=== PATIENT | female | born 1960 | race Caucasian/White ===

== ENCOUNTER 2024-03-10 14:40 | Inpatient (IN) | payer MEDICARE, OTHER, MEDICAID, SELFPAY ==
--- NOTE | ~2024-03-10 | XR_ITS ---
EXAMINATION: XR ABDOMEN KUB CLINICAL INDICATION: constipation COMPARISON: None available. TECHNIQUE: AP view of the abdomen. FINDINGS: There is moderate gas and air seen throughout the colon without distention. There is no organomegaly. No obvious radiopaque calculi seen. Evidence of kyphoplasty L2 and L3 vertebra. There is moderate dextroscoliosis lower dorsal spine. There is a right hip prosthesis in place. XR/XR KUB IMPRESSION: Moderate constipation. Electronically signed by: Jass Caldwell MD 03/18/2024 04:38 PM EST
--- NOTE | ~2024-03-10 | XR_ITS ---
EXAMINATION: XR ABDOMEN KUB CLINICAL INDICATION: constipation COMPARISON: KUB 03/18/2024 TECHNIQUE: AP view of the abdomen. FINDINGS: There is moderate scattered stool throughout the colon suggestive of constipation. There is no organomegaly. No obvious radiopaque calculi seen. There is moderate S-shaped scoliosis of dorsal lumbar spine with cement augmentation of L2 and L3 vertebra for an old fracture. There is partially visualized total right hip prosthesis in satisfactory alignment. XR/XR KUB IMPRESSION: Mild constipation. Electronically signed by: Jass Caldwell MD 03/24/2024 01:25 PM YANNI
--- NOTE | ~2024-03-10 | XR_ITS ---
CLINICAL HISTORY: pain, hx of injury. Exams to be done in the morning 3 view right ankle Comparison: None Findings: No acute fracture. Old healed distal fibular and calcaneal fractures. Medial plate and screw fixation of the distal tibia without evidence of periprosthetic fracture or loosening. One of the more distal screws results in a small focus of chronic erosion of the medial aspect of the distal fibula. Mild talocrural osteoarthritis. No tibiotalar joint effusion. IMPRESSION: No acute findings. This document has been electronically signed by: Ian Florian DO on 03/13/2024 09:57:51
--- NOTE | ~2024-03-10 | XR_ITS ---
CLINICAL HISTORY: pain, hx of injury 2 view right hip Comparison: None Findings: Lumbosacral degenerative changes. Mild right sacroiliac and minimal pubic symphysis degenerative change. Right cemented total hip arthroplasty in near anatomic alignment without evidence of hardware complication. IMPRESSION: No acute findings. This document has been electronically signed by: Ian Florian DO on 03/13/2024 09:53:47
--- NOTE | ~2024-03-10 | CT_ITS ---
CLINICAL HISTORY: losing balance CT HEAD WITHOUT CONTRAST Comparison: None Findings: No acute intracranial hemorrhage, extra-axial fluid collection, hydrocephalus or midline shift. Age appropriate generalized parenchymal atrophy. There are periventricular and subcortical white matter hypodensities which are nonspecific but most likely related to microangiopathic gliosis. No sinus or mastoid fluid. Visualized orbits: No acute abnormalities. No skull fracture. IMPRESSION: No acute intracranial process. This document has been electronically signed by: Jo Guy DO on 03/17/2024 17:28:21
[2024-03-10 14:45] VITALS: BP 145/92; PULSE 77; RESP 18; TEMP 37; O2SAT 98; BMI 17.8
--- NOTE | 2024-03-10 14:49 | ED_ITS ---
HPI - General Adult General Chief complaint: Psychiatric Symptoms Stated complaint: Crisis Time Seen by Provider: 03/10/24 15:06 Source: patient Mode of arrival: ambulatory Limitations: no limitations History of Present Illness ED Provider: DEVON HART narrative: 63 yo female with PMH of asthma, anxiety, depression here with c/o severe depression and plans to kill herself. Her parents have funs and she wanted to pry open the safe and use them. She notes lifelong SI with attempts. She has no medical complaints. No harm. She was sent over by psychiatry on S12 [facility] they have been discussing TMS therapy. The patient states she is ready and wants to get help. MD complaint: depression/SI Onset (ago): year(s) Severity: severe Relieving factors: none Exacerbating factors: other Associated symptoms: denies other symptoms Treatments prior to arrival: none Related Data Home Medications ?Medication ?Instructions ?Recorded ?Confirmed calcium carbonate 500 mg PO DAILY 03/10/24 03/10/24 calcium carbonate (Tums) 200 mg PO TID PRN Indigestion 03/10/24 03/10/24 cholecalciferol (vitamin D3) 25 25 mcg PO DAILY 03/10/24 03/10/24 mcg (1,000 unit) tablet (Vitamin D3) fluoxetine 20 mg capsule 40 mg PO DAILY 03/10/24 03/10/24 fluvoxamine 100 mg tablet 50 mg PO BID depressive disorder 03/10/24 03/11/24 lamotrigine 100 mg tablet 100 mg PO DAILY depressive disorder 03/10/24 03/10/24 levothyroxine 88 mcg tablet 88 mcg PO DAILY 03/10/24 03/10/24 (Synthroid) lorazepam 0.5 mg tablet 0.5 mg PO DAILY PRN anxiety 03/10/24 03/10/24 meclizine 12.5 mg tablet 12.5 mg PO TID PRN Dizziness 03/10/24 03/10/24 meloxicam 15 mg tablet 15 mg PO DAILY 03/10/24 03/10/24 methylphenidate HCl 20 mg tablet 20 mg PO TID@0700,1100,1500 03/10/24 03/11/24 Allergies Allergy/AdvReac Type Severity Reaction Status Date / Time codeine Allergy Swelling Verified 03/10/24 14:55 Review of Systems 2 Review of Systems: Constitutional : No Fever, No Chills ENT/Mouth : No Ear Pain, No Nasal Congestion, No sore throat Eyes: No Eye Pain, No Swelling, No Redness Cardiovascular : No Chest Pain, No SOB Respiratory : No Cough, No Sputum, No Dyspnea Gastrointestinal : No Nausea, No Vomiting, No Diarrhea, No Hematochezia, No Melena Genitourinary : No Dysuria, No Urinary Frequency, No Hematuria Musculoskeletal : No Myalgias Skin : No Skin Lesions, No rash Neuro : No Weakness, No Numbness, No Paresthesias, No Dizziness, No Headache Psych : positive Anxiety, positive Depression, positive SI no HI All other systems reviewed and are negative [facility] Past Medical History Medical History Depression Anxiety Social History Social History (Updated 03/10/24 @ 16:01 by Jessi Pollard DO) Patient Tobacco Use Status: Tobacco use Unknown Advance Directives: No Advance Directives Information Provided: Yes Physical Exam ED Vital Signs: Vital Signs - 24 hr 03/11/24 06:18 03/11/24 15:37 Temperature 97.6 F 98.2 F Pulse Rate 75 82 Respiratory Rate 16 16 Blood Pressure 121/66 108/65 Pulse Oximetry 98 99 Oxygen Delivery Method Room Air Room Air BMI result Body Mass Index 17.8 Appearance: Alert. Oriented X3. No acute distress. Eyes: Pupils equal, round and reactive to light. ENT: Pharynx normal. Neck: Normal inspection. Neck supple. CVS: Normal heart rate and rhythm. Pulses normal. Respiratory: No respiratory distress. Breath sounds normal. Abdomen: Soft and nontender. Skin: Skin warm and dry. Normal skin color. Normal skin turgor. Extremities: No lower extremity edema. No calf ttp Neuro: Oriented X 3. No motor deficit. No sensory deficit. CN2-12 intact Course Course Course Narrative: RME, this is a rapid medical exam performed by Christian Fernandez please refer to primary provider for complete H&P- 63-year-old female is brought down from for suicidal ideation. She was placed on a section on presentation to the ED. She will be brought to the pot for medical clearance and will be a bed search for inpatient psychiatric care. She was apparently trying to get access to her father's firearms Reevaluation(s) Reevaluation #1: 03/11 1 PM stable clinically bed search continue inpatient level of care Medical Decision Making Medical Decision Making MDM Narrative: 63 yo female with PMH of anxiety and depression here with c/o SI and sig plans to kill herself - at this time will obtain labs and CARE team consult - she is S12 inpatient bed search she is aware and agreeble Care team: [facility] bed search, already on a section 12 Differential Diagnosis Differential Diagnoses: The differential diagnosis associated with the presentation includes anxiety and depression Admission/Observation Consideration of admission/observation: Escalation of care including admission/observation considered physician observation started at 410pm pending CARE team and placement Consult Healthcare Provider Management of the patient was discussed with: Behavioral Health Provider Lab Data MDM Lab Attestation statement: I reviewed the patient's lab results. 03/10/24 15:48 03/10/24 15:48 Labs: Lab Results 03/10/24 Range/Units 15:48 WBC 8.8 (4.8-10.8) X10*3/uL RBC 4.01 L (4.20-5.50) X10*6/uL Hgb 13.6 (12.0-16.0) g/dl Hct 39.5 (37.0-47.0) % MCV 98.5 H (80.0-98.0) fL MCH 33.9 H (27.0-33.0) pg MCHC 34.4 (31.0-35.0) g/dl RDW 13.2 (11.0-16.0) % Plt Count 260 (160-400) X10*3/uL MPV 9.6 (9.4-12.3) fL Immature Gran % (Auto) 0.2 (0.0-0.4) % Neut % (Auto) 57.8 (45-73) % Lymph % (Auto) 27.4 (20-40) % [place] % (Auto) 8.6 (2-11) % Eos % (Auto) 4.6 H (0-4) % Baso % (Auto) 1.4 (0-2) % Lymph # (Auto) 2.4 (1.2-4.9) X10*3/uL [place] # (Auto) 0.8 (0.1-1.2) X10*3/uL Eos # (Auto) 0.4 (0.0-0.4) X10*3/uL Baso # (Auto) 0.1 (0.0-0.2) X10*3/uL Abs Immat Gran (auto) 0.02 (0.00-0.03) X10*3/uL Absolute Neuts (auto) 5.1 (2.0-8.3) x10*3/uL Absolute Nucleated RBC 0.000 (0.0-0.012) X10*3/uL Nucleated RBC % (auto) 0.0 (0.0-0.2) /100WBC Sodium 140 (135-145) mmol/L Potassium 3.6 (3.3-5.1) mmol/L Chloride 108 (96-108) mmol/L Carbon Dioxide 24 (22-29) mmol/L Anion Gap 12 (12-20) BUN 16 (9-16) mg/dL Creatinine 1.08 (0.5-1.4) mg/dL Estim Creat Clear Calc 41.4 Estimated GFR 51 Random Glucose 114 (60-115) mg/dL Calcium 9.3 (8.4-10.2) mg/dL Total Bilirubin 0.5 (0.0-1.0) mg/dL AST 40 H (5-31) U/L ALT 19 (0-31) U/L Alkaline Phosphatase 87 (39-117) U/L Total Protein 7.2 (6.5-8.0) g/dL Albumin 4.1 (3.5-5.0) g/dL Urine Color Yellow Urine Appearance Clear Urine pH 7.0 (5.0-9.0) Ur Specific [place] 1.025 (1.005-1.025) Urine Protein Negative (Neg-Trace) mg/dL Urine Glucose (UA) Negative (Negative) mg/dL Urine Ketones Trace (Negative) mg/dL Urine Blood Negative (Negative) Urine Nitrite Negative (Negative) Ur Leukocyte Esterase Trace H (Negative) Urine RBC 3-5 H (0-2) /HPF Urine WBC 0-5 (0-5) /HPF Ur Squamous Epith Cells 0-2 (0-2) /HPF Urine Bacteria None Seen (None Seen) Hyaline Casts 0-2 (0-2) /LPF Salicylates < 5.0 L (15-30) mg/dL Urine Opiates Screen POSITIVE H (Not Detect) Ur Buprenorphine Scrn Positive H (Not Detect) ng/mL Ur Oxycodone Screen Not Detected (Not Detect) ng/mL Urine Methadone Screen Not Detected (Not Detect) ng/mL Urine Fentanyl Screen Not Detected (Not Detect) Acetaminophen < 3 (<30) mcg/mL Ur Barbiturates Screen Not Detected (Not Detect) Ur Phencyclidine Scrn Not Detected (Not Detect) Ur Amphetamines Screen Not Detected (Not Detect) U Benzodiazepines Scrn Not Detected (Not Detect) Urine Cocaine Screen Not Detected (Not Detect) U Marijuana (THC) Screen POSITIVE H (Not Detect) Ethyl Alcohol < 10 mg/dL External Record Review External record reviewed: Outpatient record Discharge Plan Discharge Clinical Impression: Suicidal ideation Patient Disposition: Still a Patient Interventions: Mercer-Suicide Risk Severity Scale Last Done: 03/10/24 20:50
[2024-03-10 15:53] LABS: MANUAL DIFF FLAG NO
[2024-03-10 15:55] LABS: Basophils Absolute Auto 0.1 X10*3/uL (0.0-0.2); Basophils Percent Auto 1.4 % (0-2); Eosinophils Absolute Auto 0.4 X10*3/uL (0.0-0.4); Eosinophils Percent Auto 4.6 % (0-4); Hematocrit 39.5 % (37.0-47.0); Hemoglobin 13.6 g/dl (12.0-16.0); Imm Gran Abs Auto 0.02 X10*3/uL (0.00-0.03); Imm Gran Pct Auto 0.2 % (0.0-0.4); Lymphocytes Absolute Auto 2.4 X10*3/uL (1.2-4.9); Lymphocytes Percent Auto 27.4 % (20-40); Mean Corpuscular HGB Conc 34.4 g/dl (31.0-35.0); Mean Corpuscular Hemoglobin 33.9 pg (27.0-33.0); Mean Corpuscular Volume 98.5 fL (80.0-98.0); Mean Platelet Volume 9.6 fL (9.4-12.3); Monocytes Absolute Auto 0.8 X10*3/uL (0.1-1.2); Monocytes Percent Auto 8.6 % (2-11); Neutrophils Absolute Auto 5.1 x10*3/uL (2.0-8.3); Neutrophils Percent Auto 57.8 % (45-73); Platelet Count 260 X10*3/uL (160-400); Red Blood Count 4.01 X10*6/uL (4.20-5.50); Red Cell Distribution Width 13.2 % (11.0-16.0); White Blood Count 8.8 X10*3/uL (4.8-10.8)
[2024-03-10 16:00] LABS: Appearance Urine Clear; Color Urine Yellow; Glucose Urine UA Negative (Negative); Leukocyte Esterase Urine Trace (Negative); Nitrite Urine Negative (Negative); Specific Gravity - Urine 1.025 (1.005-1.025); UMIC TRIGGER UA YES; Urine Blood Negative (Negative); Urine Ketones Trace mg/dL (Negative); Urine Protein Negative (Neg-Trace)
[2024-03-10 16:04] LABS: Amphetamine Screen Urine Not Detected (Not Detect); Barbiturates, Urine Not Detected (Not Detect); Benzodiazepines Screen Urine Not Detected (Not Detect); Buprenorphine Scr Positive (Not Detect); Cannabinoid Screen Urine POSITIVE (Not Detect); Cocaine Screen Urine Not Detected (Not Detect); Fentanyl, urine Not Detected (Not Detect); Methadone Screen, Urine Not Detected (Not Detect); Opiate Screen Urine POSITIVE (Not Detect); Oxycodone Screen Urine Not Detected (Not Detect); Phencyclidine Screen Urine Not Detected (Not Detect)
[2024-03-10 16:10] LABS: Bacteria Urine None Seen (None Seen); Hyaline Casts Urine 0-2 /LPF (0-2); Squamous Epithelial Cell Urine 0-2 /HPF (0-2); WBC Urine 0-5 /HPF (0-5)
[2024-03-10 16:15] LABS: Acetaminophen LAB < 3 mcg/mL (<30); Salicylate < 5.0 mg/dL (15-30)
[2024-03-10 16:16] LABS: Alanine Aminotransferase 19 U/L (0-31); Albumin Level 4.1 g/dL (3.5-5.0); Alkaline Phosphatase 87 U/L (39-117); Anion Gap 12 (12-20); Aspartate Amino Transferase 40 U/L (5-31); Bilirubin Total 0.5 mg/dL (0.0-1.0); Blood Urea Nitrogen 16 mg/dL (9-16); Calcium 9.3 mg/dL (8.4-10.2); Carbon Dioxide 24 mmol/L (22-29); Chloride 108 mmol/L (96-108); Creatinine Clr Calc Pharmacy 41.4; Estimated Glomerular Filt Rate 51; Ethanol < 10 mg/dL; Glucose Random 114 mg/dL (60-115); Potassium 3.6 mmol/L (3.3-5.1); Sodium 140 mmol/L (135-145); Total Protein 7.2 g/dL (6.5-8.0)
--- NOTE | 2024-03-10 20:21 | PHA.MEDREC ---
Pharmacy Consult ? Medication Reconciliation Pharmacy has completed the medication reconciliation. Spoke with patient in the ED. Patient knew all medications. Patient states her and her psychiatrist had a conversation about stopping abilify because she did not like the way it made her feel, she has not taken this medication in over a week.
--- NOTE | 2024-03-11 | ECG_ITS ---
Test Reason : PROLONGED QTC Blood Pressure : / mmHG Vent. Rate : 076 BPM Atrial Rate : 076 BPM P-R Int : 146 ms QRS Dur : 070 ms QT Int : 410 ms P-R-T Axes : 037 051 064 degrees QTc Int : 461 ms Normal sinus rhythm Normal ECG No previous ECGs available Referred By: Kamaljit Stevens Electronically Signed By:CAROLINE OLMEDO MD
[2024-03-11 06:18] VITALS: BP 121/66; PULSE 75; RESP 16; TEMP 36.4; O2SAT 98
--- NOTE | 2024-03-11 09:12 | PC.NURSE ---
patient currently sleeping, rr equal/non labored, plan of care ongoing
--- NOTE | 2024-03-11 10:06 | PC.NURSE ---
pt currently walking among the unit, ambulatory with a steady gait.
--- NOTE | 2024-03-11 11:08 | PC.NURSE ---
jerrod currently performing the ekg
--- NOTE | 2024-03-11 14:50 | PHA.MEDREC ---
Pharmacy Consult ? Medication Reconciliation Pharmacy has reviewed the medication reconciliation done by nursing and also spoke to patient. Patient said she takes fluvoxamine 50 mg bid , timing for methylphenidate is 0700+1100+1500. Aripiprazole 2 mg was discontinued a week ago at her last doctor's visit.
[2024-03-11 15:37] VITALS: BP 108/65; PULSE 82; RESP 16; TEMP 36.8; O2SAT 99
[2024-03-11 17:03] VITALS: BMI 18.3
[2024-03-11 17:05] VITALS: BP 130/69; PULSE 69; RESP 20; TEMP 37.2; O2SAT 96
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
[2024-03-11 20:00] VITALS: BP 128/64; PULSE 66; RESP 18; TEMP 37; O2SAT 97
[2024-03-11] MEDS: NaPROXEN 500 MG TABLET PO (21:08)
[2024-03-11] MEDS: fluvoxaMINE Maleate 50 MG TABLET PO (21:09)
[2024-03-12] MEDS: Levothyroxine Sodium 88 MCG TABLET PO (06:26)
[2024-03-12] MEDS: Methylphenidate HCl 10 MG TABLET 20 MG PO ×3 (06:26→16:04)
[2024-03-12 07:47] LABS: Cholesterol 208 mg/dL (<200); HDL Cholesterol 96 mg/dL (>40); LDL Cholesterol Calculated 102 mg/dL (<100); Triglycerides 53 mg/dL (<150)
[2024-03-12 08:01] LABS: Estimated Average Glucose 111 mg/dL; Hemoglobin A1c % 5.5 % (<6.0); Total Hemoglobin (HGBA1C) 3507.7171 umol/L
[2024-03-12 08:10] VITALS: BP 99/56; PULSE 63; TEMP 36.4; O2SAT 98
[2024-03-12] MEDS: Calcium Oyster Shell Elemental 500 MG TABLET PO (09:14)
[2024-03-12] MEDS: FLUoxetine HCl 20 MG CAPSULE 40 MG PO (09:14)
[2024-03-12] MEDS: Cholecalciferol (Vitamin D3) 25 MCG TABLET PO (09:14)
[2024-03-12] MEDS: fluvoxaMINE Maleate 50 MG TABLET PO ×2 (09:14→20:59)
[2024-03-12] MEDS: lamoTRIgine 100 MG TABLET PO (09:14)
[2024-03-12] MEDS: NaPROXEN 500 MG TABLET PO ×2 (09:15→20:58)
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
[2024-03-12] MEDS: LORazepam 0.5 MG TABLET PO (17:26)
[2024-03-12 19:41] VITALS: BP 138/67; PULSE 89; TEMP 36.8; O2SAT 98
[2024-03-13] MEDS: Levothyroxine Sodium 88 MCG TABLET PO (06:46)
[2024-03-13] MEDS: Methylphenidate HCl 10 MG TABLET 20 MG PO ×2 (06:46→11:49)
[2024-03-13 08:30] VITALS: BP 116/62; PULSE 70; TEMP 36.9; O2SAT 98
[2024-03-13] MEDS: fluvoxaMINE Maleate 50 MG TABLET PO ×2 (09:44→20:33)
[2024-03-13] MEDS: NaPROXEN 500 MG TABLET PO ×2 (09:44→20:33)
[2024-03-13] MEDS: FLUoxetine HCl 20 MG CAPSULE 40 MG PO (09:44)
[2024-03-13] MEDS: Cholecalciferol (Vitamin D3) 25 MCG TABLET PO (09:45)
[2024-03-13] MEDS: Calcium Oyster Shell Elemental 500 MG TABLET PO (09:45)
[2024-03-13] MEDS: lamoTRIgine 100 MG TABLET PO (09:45)
[2024-03-13] MEDS: LORazepam 0.5 MG TABLET PO (13:12)
--- NOTE | 2024-03-13 14:04 | HO.PSYCHPN ---
Subjective Subjective Date of Service: 03/13/24 Reason For Visit: depressed Subjective Notes: Conditional Voluntary Healthcare Proxy: No Guardianship: No Medical Problems Affecting Mental Status: No Interim History: Pt seen, discussed with team. Medical concerns heard and we are beginning to address these Pt is starting groups, orienting to milieu and organizing her needs. Requests Ensure TID (chocolate) Medication Compliance: Yes Side effects from medications: No Attending Groups: Yes Review of Systems Acute medical concerns: No Review of Systems Review of Systems R ankle, hip pain Balance issues, ?neuro Mental Status Exam Mental Status Exam Patient Appearance: Fatigued and Appropriate Patient Orientation: Person, Place, Time and Situation Level of Consciousness: Alert Patient Behavior: Talkative, Cooperative, Fatigued, Distractible, Good Eye Contact and Crying Mood Description: Depressed Affect Description: Flat Patient Cognition Impaired: No Ability to Follow Directions: Good Speech Pattern: Spontaneous Speech Memory Description: Episodic Impaired (tbi 2019) Hallucinations: None Delusions: Thought Insert/Delete Perceptual Disturbances: Depersonalization and Derealization Thought Process: Rumination Thought Content: positive for Circumstantial, positive for Perseveration, positive for Preoccupation and positive for Suicidal Ideation Depressive Symptoms: Increased Anxiety, Difficulty Sleeping, Changes in Appetite, Significant Weight Loss, Loss of Int. in Activity, Feelings of Worthlessness, Hopelessness, Unhappiness, Increased Fatigue, Thoughts of /Suicide, Low Self Esteem, Loss of Energy and Difficulty Concentrating Judgement: Fair Diagnostics Vital Signs (24Hr): Vital Signs - 24 hr 03/12/24 19:41 03/13/24 08:30 Temperature 98.2 F 98.5 F Pulse Rate 89 70 Blood Pressure 138/67 116/62 Pulse Oximetry 98 98 Oxygen Delivery Method Room Air Room Air BMI result Body Mass Index 18.3 Labs 03/10/24 15:48 03/10/24 15:48 Labs: Laboratory Results - last 48 hr 03/12/24 06:58 Estimat Average Glucose 111 Hemoglobin A1c % 5.5 Triglycerides 53 Cholesterol 208 H LDL Cholesterol, Calc 102 H HDL Cholesterol 96 Medications Medications Current Medications Acetaminophen (Acetaminophen 325 Mg Tablet) 650 mg PO Q6H PRN PRN Reason: Headache/Pain Mild Scale (1-3) Al Hydroxide/Mg Hydroxide (Magnesium Hydrox/Alum Hydrox 30 Ml Oral.Susp) 30 ml PO Q6H PRN PRN Reason: Heartburn/Nausea Calcium Carbonate (Calcium Oyster Shell Elemental 500 Mg Tablet) 500 mg PO DAILY [facility] Last Admin: 03/13/24 09:45 Dose: 500 mg Calcium Carbonate (Calcium Carbonate 750 Mg Tab.Chew) 750 mg PO TID PRN PRN Reason: Indigestion Fluoxetine HCl (Fluoxetine Hcl 20 Mg Capsule) 40 mg PO DAILY [facility] Last Admin: 03/13/24 09:44 Dose: 40 mg Fluvoxamine Maleate (Fluvoxamine Maleate 50 Mg Tablet) 50 mg PO BID [facility] Last Admin: 03/13/24 09:44 Dose: 50 mg Hydroxyzine HCl (Hydroxyzine Hcl 25 Mg Tablet) 25 mg PO Q6H PRN PRN Reason: Anxiety Lamotrigine (Lamotrigine 100 Mg Tablet) 100 mg PO DAILY [facility] Last Admin: 03/13/24 09:45 Dose: 100 mg Levothyroxine Sodium (Levothyroxine Sodium 88 Mcg Tablet) 88 mcg PO DAILY@0600 [facility] Last Admin: 03/13/24 06:46 Dose: 88 mcg Lorazepam (Lorazepam 0.5 Mg Tablet) 0.5 mg PO DAILY PRN PRN Reason: anxiety Last Admin: 03/12/24 17:26 Dose: 0.5 mg Magnesium Hydroxide (Milk Of Magnesia 30 Ml Oral.Susp) 30 ml PO DAILY PRN PRN Reason: Constipation Meclizine HCl (Meclizine Hcl 12.5 Mg Tablet) 12.5 mg PO TID PRN PRN Reason: Dizziness Methylphenidate HCl (Methylphenidate Hcl 10 Mg Tablet) 20 mg PO TID@0700,1100,1500 [facility] Last Admin: 03/13/24 11:49 Dose: 20 mg Naproxen (Naproxen 500 Mg Tablet) 500 mg PO BID [facility] Last Admin: 03/13/24 09:44 Dose: 500 mg Nicotine Polacrilex (Nicotine Polacrilex 2 Mg Gum) 4 mg BUCCAL Q2H PRN PRN Reason: Nicotine Cravings Olanzapine (Olanzapine 5 Mg Tablet) 5 mg PO TID PRN PRN Reason: agitation Trazodone HCl (Trazodone Hcl 50 Mg Tablet) 50 mg PO BEDTIME MRX1 PRN PRN Reason: Insomnia Vitamin D (Cholecalciferol (Vitamin D3) 25 Mcg Tablet) 25 mcg PO DAILY [facility] Last Admin: 03/13/24 09:45 Dose: 25 mcg Allergies Allergies Allergy/AdvReac Type Severity Reaction Status Date / Time codeine Allergy Swelling Verified 03/10/24 14:55 Assessment & Plan Assessment & Plan (1) PTSD (post-traumatic stress disorder): Status: Acute Code(s): F43.10 - Post-traumatic stress disorder, unspecified (2) OCD (obsessive compulsive disorder): Status: Acute Code(s): F42.9 - Obsessive-compulsive disorder, unspecified (3) Recurrent major depression-severe: Status: Acute Code(s): F33.2 - Major depressive disorder, recurrent severe without psychotic features (4) Anorexia nervosa, binge eating/purging type: Status: Acute Code(s): F50.029 - Anorexia nervosa, binge eating/purging type, unspecified (5) Polysubstance use disorder: Status: Acute Code(s): F19.90 - Other psychoactive substance use, unspecified, uncomplicated (6) Borderline personality disorder: Status: Acute Code(s): F60.3 - Borderline personality disorder (7) TBI (traumatic brain injury): Status: Acute Code(s): S06.9XAA - Unspecified intracranial injury with loss of consciousness status unknown, initial encounter Plan PTSD, Recurrent Major Depression, OCD, Anorexia Nervosa,Binge Purge Type, Borderline Personality Disorder, Polysubstance use disorder-alcohol, cannabis, opiates, TBI. Plan: Admit, CV, 15 minute checks Diagnostics as needed Medical care/consult as needed. Pt has several issues not addressed --Neuro consult-recent falls, balance issues reported --Xrays R Ankle, Hip-reports significant pain Collateral contacts Continue current regime at this time-pt reports several trials-will talk with OP team prior to making changes. Aftercare/Discharge planning 03/13: Await neuro consult for med changes. Reason for continued inpatient stay Substantial Risk for: med/psych decompensation Time Spent With Patient Time: Total time managing care of this patient today ____ minutes.
[2024-03-13 20:00] VITALS: BP 114/73; PULSE 79; TEMP 37.3; O2SAT 98
[2024-03-13] MEDS: traZODone HCL 50 MG TABLET PO ×2 (20:33→22:00)
[2024-03-14] MEDS: Methylphenidate HCl 10 MG TABLET 20 MG PO ×3 (06:47→15:09)
[2024-03-14] MEDS: Levothyroxine Sodium 88 MCG TABLET PO (06:47)
[2024-03-14 08:17] VITALS: BP 97/58; PULSE 68; TEMP 36.5
[2024-03-14] MEDS: FLUoxetine HCl 20 MG CAPSULE 40 MG PO (09:09)
[2024-03-14] MEDS: fluvoxaMINE Maleate 50 MG TABLET PO ×2 (09:10→20:13)
[2024-03-14] MEDS: lamoTRIgine 100 MG TABLET PO (09:10)
[2024-03-14] MEDS: NaPROXEN 500 MG TABLET PO ×2 (09:10→20:13)
[2024-03-14] MEDS: Calcium Oyster Shell Elemental 500 MG TABLET PO (09:11)
[2024-03-14] MEDS: Cholecalciferol (Vitamin D3) 25 MCG TABLET PO (11:32)
--- NOTE | 2024-03-14 12:05 | HO.PSYCHPN ---
Subjective Subjective Date of Service: 03/14/24 Reason For Visit: depressed Subjective Notes: Conditional Voluntary Healthcare Proxy: No Guardianship: No Medical Problems Affecting Mental Status: No Interim History: Pt seen,discussed with team. Continues to integrate into milieu. I am grateful to be here. People treat me as if I matter. Call to [facility] to discuss med trials. Pt awaiting neuro consult Medication Compliance: Yes Side effects from medications: No Attending Groups: Yes Review of Systems Review of Systems R ankle, hip pain Balance issues, ?neuro Mental Status Exam Mental Status Exam Patient Appearance: Fatigued and Appropriate Patient Orientation: Person, Place, Time and Situation Level of Consciousness: Alert Patient Behavior: Talkative, Cooperative, Fatigued, Distractible, Good Eye Contact and Crying Mood Description: Depressed Affect Description: Flat Patient Cognition Impaired: No Ability to Follow Directions: Good Speech Pattern: Spontaneous Speech Memory Description: Episodic Impaired (tbi 2019) Hallucinations: None Delusions: Thought Insert/Delete Perceptual Disturbances: Depersonalization and Derealization Thought Process: Rumination Thought Content: positive for Circumstantial, positive for Perseveration, positive for Preoccupation and positive for Suicidal Ideation Depressive Symptoms: Increased Anxiety, Difficulty Sleeping, Changes in Appetite, Significant Weight Loss, Loss of Int. in Activity, Feelings of Worthlessness, Hopelessness, Unhappiness, Increased Fatigue, Thoughts of /Suicide, Low Self Esteem, Loss of Energy and Difficulty Concentrating Judgement: Fair Diagnostics Vital Signs (24Hr): Vital Signs - 24 hr 03/13/24 20:00 03/14/24 08:17 Temperature 99.1 F 97.7 F Pulse Rate 79 68 Blood Pressure 114/73 97/58 L Pulse Oximetry 98 Oxygen Delivery Method Room Air BMI result Body Mass Index 18.3 Labs 03/10/24 15:48 03/10/24 15:48 Medications Medications Current Medications Acetaminophen (Acetaminophen 325 Mg Tablet) 650 mg PO Q6H PRN PRN Reason: Headache/Pain Mild Scale (1-3) Al Hydroxide/Mg Hydroxide (Magnesium Hydrox/Alum Hydrox 30 Ml Oral.Susp) 30 ml PO Q6H PRN PRN Reason: Heartburn/Nausea Calcium Carbonate (Calcium Oyster Shell Elemental 500 Mg Tablet) 500 mg PO DAILY [facility] Last Admin: 03/14/24 09:11 Dose: 500 mg Calcium Carbonate (Calcium Carbonate 750 Mg Tab.Chew) 750 mg PO TID PRN PRN Reason: Indigestion Fluoxetine HCl (Fluoxetine Hcl 20 Mg Capsule) 40 mg PO DAILY [facility] Last Admin: 03/14/24 09:09 Dose: 40 mg Fluvoxamine Maleate (Fluvoxamine Maleate 50 Mg Tablet) 50 mg PO BID [facility] Last Admin: 03/14/24 09:10 Dose: 50 mg Hydroxyzine HCl (Hydroxyzine Hcl 25 Mg Tablet) 25 mg PO Q6H PRN PRN Reason: Anxiety Lamotrigine (Lamotrigine 100 Mg Tablet) 100 mg PO DAILY [facility] Last Admin: 03/14/24 09:10 Dose: 100 mg Levothyroxine Sodium (Levothyroxine Sodium 88 Mcg Tablet) 88 mcg PO DAILY@0600 [facility] Last Admin: 03/14/24 06:47 Dose: 88 mcg Lorazepam (Lorazepam 0.5 Mg Tablet) 0.5 mg PO DAILY PRN PRN Reason: anxiety Last Admin: 03/13/24 13:12 Dose: 0.5 mg Magnesium Hydroxide (Milk Of Magnesia 30 Ml Oral.Susp) 30 ml PO DAILY PRN PRN Reason: Constipation Meclizine HCl (Meclizine Hcl 12.5 Mg Tablet) 12.5 mg PO TID PRN PRN Reason: Dizziness Methylphenidate HCl (Methylphenidate Hcl 10 Mg Tablet) 20 mg PO TID@0700,1100,1500 [facility] Last Admin: 03/14/24 11:32 Dose: 20 mg Naproxen (Naproxen 500 Mg Tablet) 500 mg PO BID [facility] Last Admin: 03/14/24 09:10 Dose: 500 mg Nicotine Polacrilex (Nicotine Polacrilex 2 Mg Gum) 4 mg BUCCAL Q2H PRN PRN Reason: Nicotine Cravings Olanzapine (Olanzapine 5 Mg Tablet) 5 mg PO TID PRN PRN Reason: agitation Trazodone HCl (Trazodone Hcl 50 Mg Tablet) 50 mg PO BEDTIME MRX1 PRN PRN Reason: Insomnia Last Admin: 03/13/24 22:00 Dose: 50 mg Vitamin D (Cholecalciferol (Vitamin D3) 25 Mcg Tablet) 25 mcg PO DAILY [facility] Last Admin: 03/14/24 11:32 Dose: 25 mcg Allergies Allergies Allergy/AdvReac Type Severity Reaction Status Date / Time codeine Allergy Swelling Verified 03/10/24 14:55 Assessment & Plan Assessment & Plan (1) PTSD (post-traumatic stress disorder): Status: Acute Code(s): F43.10 - Post-traumatic stress disorder, unspecified (2) OCD (obsessive compulsive disorder): Status: Acute Code(s): F42.9 - Obsessive-compulsive disorder, unspecified (3) Recurrent major depression-severe: Status: Acute Code(s): F33.2 - Major depressive disorder, recurrent severe without psychotic features (4) Anorexia nervosa, binge eating/purging type: Status: Acute Code(s): F50.029 - Anorexia nervosa, binge eating/purging type, unspecified (5) Polysubstance use disorder: Status: Acute Code(s): F19.90 - Other psychoactive substance use, unspecified, uncomplicated (6) Borderline personality disorder: Status: Acute Code(s): F60.3 - Borderline personality disorder (7) TBI (traumatic brain injury): Status: Acute Code(s): S06.9XAA - Unspecified intracranial injury with loss of consciousness status unknown, initial encounter Plan PTSD, Recurrent Major Depression, OCD, Anorexia Nervosa,Binge Purge Type, Borderline Personality Disorder, Polysubstance use disorder-alcohol, cannabis, opiates, TBI. Plan: Admit, CV, 15 minute checks Diagnostics as needed Medical care/consult as needed. Pt has several issues not addressed --Neuro consult-recent falls, balance issues reported --Xrays R Ankle, Hip-reports significant pain Collateral contacts Continue current regime at this time-pt reports several trials-will talk with OP team prior to making changes. Aftercare/Discharge planning 03/14: continue tx. Reason for continued inpatient stay Substantial Risk for: rapid decompensation and med/psych decompensation Time Spent With Patient Time: Total time managing care of this patient today ____ minutes.
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
[2024-03-14] MEDS: LORazepam 0.5 MG TABLET PO (18:09)
[2024-03-14] MEDS: Acetaminophen 325 MG TABLET 650 MG PO (18:10)
[2024-03-14 19:53] VITALS: PULSE 72; TEMP 36.7; O2SAT 98
[2024-03-14] MEDS: traZODone HCL 50 MG TABLET PO ×2 (20:15→21:21)
[2024-03-14] MEDS: hydrOXYzine HCL 25 MG TABLET PO (23:09)
--- NOTE | 2024-03-15 | EEG_ITS ---
This is a 16-channel EEG with an EKG lead. The patient is reported awake and drowsy during the tracing. Background EEG rhythm is mixed theta beta, low to medium amplitude with no obvious sharp wave spikes or paroxysmal tendency. Photic stimulation does not produce any significant abnormality. Hyperventilation is not performed. Cardiac lead does not reveal any significant abnormality. IMPRESSION: Mild slowing with no evidence of seizure disorder. MD JAYJAY Meza/OVI / [id number]
[2024-03-15] MEDS: Levothyroxine Sodium 88 MCG TABLET PO (06:33)
[2024-03-15] MEDS: Methylphenidate HCl 10 MG TABLET 20 MG PO ×3 (06:33→14:53)
[2024-03-15 08:16] VITALS: BP 103/58; PULSE 69; TEMP 36.9; O2SAT 97
[2024-03-15] MEDS: FLUoxetine HCl 20 MG CAPSULE 40 MG PO (08:47)
[2024-03-15] MEDS: fluvoxaMINE Maleate 50 MG TABLET PO ×2 (08:48→22:46)
[2024-03-15] MEDS: Cholecalciferol (Vitamin D3) 25 MCG TABLET PO (08:48)
[2024-03-15] MEDS: NaPROXEN 500 MG TABLET PO ×2 (08:48→22:46)
[2024-03-15] MEDS: Calcium Oyster Shell Elemental 500 MG TABLET PO (08:49)
[2024-03-15] MEDS: lamoTRIgine 100 MG TABLET PO (08:50)
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
[2024-03-15] MEDS: LORazepam 0.5 MG TABLET PO (18:04)
[2024-03-15 20:00] VITALS: BP 107/86; PULSE 76; RESP 18; TEMP 36.9; O2SAT 98
[2024-03-15] MEDS: hydrOXYzine HCL 25 MG TABLET PO (22:50)
[2024-03-16] MEDS: Methylphenidate HCl 10 MG TABLET 20 MG PO ×3 (07:06→15:19)
[2024-03-16] MEDS: Levothyroxine Sodium 88 MCG TABLET PO (07:06)
[2024-03-16 07:59] VITALS: BP 92/56; PULSE 71; RESP 18; TEMP 36.9; O2SAT 98
[2024-03-16] MEDS: FLUoxetine HCl 20 MG CAPSULE 40 MG PO (08:56)
[2024-03-16] MEDS: Calcium Oyster Shell Elemental 500 MG TABLET PO (08:56)
[2024-03-16] MEDS: Cholecalciferol (Vitamin D3) 25 MCG TABLET PO (08:56)
[2024-03-16] MEDS: lamoTRIgine 100 MG TABLET PO (08:57)
[2024-03-16] MEDS: NaPROXEN 500 MG TABLET PO ×2 (08:57→22:17)
[2024-03-16] MEDS: fluvoxaMINE Maleate 50 MG TABLET PO ×2 (08:57→22:14)
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
[2024-03-16] MEDS: hydrOXYzine HCL 25 MG TABLET PO (18:25)
[2024-03-16] MEDS: LORazepam 0.5 MG TABLET PO (18:34)
[2024-03-16 21:30] VITALS: BP 117/77; PULSE 73; RESP 18; TEMP 36.3; O2SAT 99
[2024-03-16] MEDS: Meclizine HCl 12.5 MG TABLET PO (22:15)
[2024-03-16] MEDS: OLANZapine 5 MG TABLET PO (22:17)
[2024-03-17] MEDS: traZODone HCL 50 MG TABLET PO ×2 (00:38→20:25)
[2024-03-17] MEDS: Magnesium Hydrox/Alum Hydrox 30 ML ORAL.SUSP PO (00:38)
[2024-03-17 07:00] VITALS: BMI 19.5
[2024-03-17 08:00] VITALS: BP 91/53; PULSE 64; RESP 18; TEMP 36.7; O2SAT 97
[2024-03-17] MEDS: fluvoxaMINE Maleate 50 MG TABLET PO ×2 (08:56→20:25)
[2024-03-17] MEDS: NaPROXEN 500 MG TABLET PO ×2 (08:56→20:24)
[2024-03-17] MEDS: Methylphenidate HCl 10 MG TABLET 20 MG PO ×3 (08:56→14:11)
[2024-03-17] MEDS: Cholecalciferol (Vitamin D3) 25 MCG TABLET PO (08:57)
[2024-03-17] MEDS: FLUoxetine HCl 20 MG CAPSULE 40 MG PO (08:57)
[2024-03-17] MEDS: lamoTRIgine 100 MG TABLET PO (08:57)
[2024-03-17] MEDS: Calcium Oyster Shell Elemental 500 MG TABLET PO (08:57)
[2024-03-17] MEDS: Levothyroxine Sodium 88 MCG TABLET PO (08:57)
[2024-03-17] MEDS: Milk of Magnesia 30 ML ORAL.SUSP PO (11:26)
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
[2024-03-17] MEDS: Sennosides/Docusate Sodium TABLET 1 TAB PO ×2 (14:11→20:25)
[2024-03-17] MEDS: polyethylene glycoL 3350 17 GM POWD.PACK PO (14:11)
[2024-03-17] MEDS: LORazepam 0.5 MG TABLET PO (18:22)
[2024-03-17 20:00] VITALS: BP 144/59; PULSE 71; RESP 18; TEMP 36.6; O2SAT 100
[2024-03-17] MEDS: OLANZapine 5 MG TABLET PO (20:24)
[2024-03-17] MEDS: hydrOXYzine HCL 25 MG TABLET PO (20:25)
[2024-03-18] MEDS: Levothyroxine Sodium 88 MCG TABLET PO (06:09)
[2024-03-18] MEDS: Methylphenidate HCl 10 MG TABLET 20 MG PO ×3 (06:49→15:09)
[2024-03-18 08:00] VITALS: BP 107/60; PULSE 60; TEMP 36.9; O2SAT 97
[2024-03-18] MEDS: FLUoxetine HCl 20 MG CAPSULE 40 MG PO (09:07)
[2024-03-18] MEDS: Cholecalciferol (Vitamin D3) 25 MCG TABLET PO (09:07)
[2024-03-18] MEDS: fluvoxaMINE Maleate 50 MG TABLET PO ×2 (09:07→21:25)
[2024-03-18] MEDS: polyethylene glycoL 3350 17 GM POWD.PACK PO (09:07)
[2024-03-18] MEDS: lamoTRIgine 100 MG TABLET PO (09:07)
[2024-03-18] MEDS: Sennosides/Docusate Sodium TABLET 1 TAB PO ×2 (09:07→21:25)
[2024-03-18] MEDS: Calcium Oyster Shell Elemental 500 MG TABLET PO (09:07)
[2024-03-18] MEDS: NaPROXEN 500 MG TABLET PO ×2 (09:08→21:25)
[2024-03-18] MEDS: Milk of Magnesia 30 ML ORAL.SUSP PO (09:28)
[2024-03-18] MEDS: hydrOXYzine HCL 25 MG TABLET PO (11:11)
[2024-03-18] MEDS: Calcium Carbonate 750 MG TAB.CHEW PO (11:11)
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
[2024-03-18] MEDS: Lactulose 20 GM/30 ML SOLUTION PO (15:07)
[2024-03-18] MEDS: bisacodyL 5 MG TABLET.DR 10 MG PO (15:08)
[2024-03-18] MEDS: LORazepam 0.5 MG TABLET PO (19:00)
[2024-03-18 20:00] VITALS: BP 105/62; PULSE 62; TEMP 37.1; O2SAT 100
[2024-03-18] MEDS: traZODone HCL 50 MG TABLET PO (21:25)
[2024-03-18] MEDS: OLANZapine 5 MG TABLET PO (21:25)
[2024-03-19] MEDS: Levothyroxine Sodium 88 MCG TABLET PO (06:41)
[2024-03-19] MEDS: Methylphenidate HCl 10 MG TABLET 20 MG PO ×3 (06:41→16:21)
[2024-03-19 08:40] VITALS: BP 97/53; PULSE 65; RESP 16; TEMP 36.9; O2SAT 97
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
[2024-03-19] MEDS: Calcium Oyster Shell Elemental 500 MG TABLET PO (09:59)
[2024-03-19] MEDS: Sennosides/Docusate Sodium TABLET 1 TAB PO ×2 (09:59→20:52)
[2024-03-19] MEDS: NaPROXEN 500 MG TABLET PO ×2 (09:59→20:52)
[2024-03-19] MEDS: lamoTRIgine 100 MG TABLET PO (09:59)
[2024-03-19] MEDS: Cholecalciferol (Vitamin D3) 25 MCG TABLET PO (09:59)
[2024-03-19] MEDS: FLUoxetine HCl 20 MG CAPSULE 40 MG PO (09:59)
[2024-03-19] MEDS: fluvoxaMINE Maleate 50 MG TABLET PO ×2 (09:59→20:52)
[2024-03-19] MEDS: Lactulose 20 GM/30 ML SOLUTION PO ×2 (11:35→17:26)
[2024-03-19] MEDS: polyethylene glycoL 3350 17 GM POWD.PACK PO (11:35)
[2024-03-19] MEDS: LORazepam 0.5 MG TABLET PO (18:38)
[2024-03-19 20:00] VITALS: BP 120/70; PULSE 84; TEMP 36.7; O2SAT 99
[2024-03-19] MEDS: traZODone HCL 50 MG TABLET PO (20:52)
[2024-03-19] MEDS: OLANZapine 5 MG TABLET PO (20:52)
--- NOTE | 2024-03-20 06:47 | PC.NURSE ---
Attempted to wake pt x2 for AM meds without success. Pt resps even and regular
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
[2024-03-20 09:01] VITALS: BP 106/70; PULSE 60; RESP 16; TEMP 36.4; O2SAT 98
[2024-03-20] MEDS: fluvoxaMINE Maleate 50 MG TABLET PO ×2 (09:26→20:46)
[2024-03-20] MEDS: lamoTRIgine 100 MG TABLET PO (09:26)
[2024-03-20] MEDS: Cholecalciferol (Vitamin D3) 25 MCG TABLET PO (09:26)
[2024-03-20] MEDS: NaPROXEN 500 MG TABLET PO ×2 (09:26→20:46)
[2024-03-20] MEDS: Sennosides/Docusate Sodium TABLET 1 TAB PO ×2 (09:26→20:47)
[2024-03-20] MEDS: polyethylene glycoL 3350 17 GM POWD.PACK PO (09:26)
[2024-03-20] MEDS: FLUoxetine HCl 20 MG CAPSULE 40 MG PO (09:26)
[2024-03-20] MEDS: Methylphenidate HCl 10 MG TABLET 20 MG PO ×3 (09:26→16:50)
[2024-03-20] MEDS: Levothyroxine Sodium 88 MCG TABLET PO (09:26)
[2024-03-20] MEDS: Calcium Oyster Shell Elemental 500 MG TABLET PO (09:26)
[2024-03-20] MEDS: Lactulose 20 GM/30 ML SOLUTION PO (10:21)
[2024-03-20] MEDS: Throat Lozenge, Medicated LOZENGE 1 LOZENGE MUCOUS MEM (16:48)
[2024-03-20] MEDS: LORazepam 0.5 MG TABLET PO (18:18)
[2024-03-20 20:00] VITALS: BP 109/57; PULSE 68; RESP 18; TEMP 36.5; O2SAT 98
[2024-03-20] MEDS: traZODone HCL 50 MG TABLET PO (20:46)
[2024-03-20] MEDS: OLANZapine 5 MG TABLET PO (20:46)
[2024-03-20] MEDS: Milk of Magnesia 30 ML ORAL.SUSP PO (21:00)
[2024-03-21] MEDS: Levothyroxine Sodium 88 MCG TABLET PO (07:55)
[2024-03-21] MEDS: Methylphenidate HCl 10 MG TABLET 20 MG PO ×3 (07:55→14:25)
[2024-03-21 08:00] VITALS: BP 113/66; PULSE 59; TEMP 36.8; O2SAT 99
[2024-03-21] MEDS: polyethylene glycoL 3350 17 GM POWD.PACK PO (08:05)
[2024-03-21] MEDS: FLUoxetine HCl 20 MG CAPSULE 40 MG PO (08:05)
[2024-03-21] MEDS: NaPROXEN 500 MG TABLET PO ×2 (08:06→20:42)
[2024-03-21] MEDS: Sennosides/Docusate Sodium TABLET 1 TAB PO ×2 (08:06→20:42)
[2024-03-21] MEDS: lamoTRIgine 100 MG TABLET PO (08:06)
[2024-03-21] MEDS: Cholecalciferol (Vitamin D3) 25 MCG TABLET PO (08:06)
[2024-03-21] MEDS: fluvoxaMINE Maleate 50 MG TABLET PO ×2 (08:06→20:42)
[2024-03-21] MEDS: Calcium Oyster Shell Elemental 500 MG TABLET PO (08:06)
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
[2024-03-21 12:44] VITALS: BP 137/87; PULSE 78; RESP 18; TEMP 37.3; O2SAT 96
[2024-03-21 20:00] VITALS: BP 121/72; PULSE 67; RESP 18; TEMP 36.7; O2SAT 98
[2024-03-21] MEDS: Acetaminophen 325 MG TABLET 650 MG PO (20:43)
[2024-03-21] MEDS: LORazepam 0.5 MG TABLET PO (20:43)
[2024-03-21] MEDS: traZODone HCL 50 MG TABLET PO (20:44)
[2024-03-21] MEDS: Lactulose 20 GM/30 ML SOLUTION PO (20:45)
--- NOTE | 2024-03-21 20:55 | PC.NURSE ---
LATE ENTRY: At approximately 12:25 today, patient was hurrying to try and say goodbye to a peer exiting the unit for discharge. Pt states that she was wearing a pair of new slides which she tripped on resulting in a fall to her knees. The fall was witnessed by staff. Pt denies injury other than a small scrape & bump on her right knee & bruise rt right elbow. Vital signs taken & stable. Antibiotic ointment and bandaide applied to scrape & pt was given a ice pack to her knee. Miranda De Jesus NP notified.
[2024-03-21] MEDS: OLANZapine 5 MG TABLET PO (21:05)
[2024-03-21] MEDS: hydrOXYzine HCL 25 MG TABLET PO (22:08)
[2024-03-22] MEDS: Levothyroxine Sodium 88 MCG TABLET PO (06:37)
[2024-03-22] MEDS: Methylphenidate HCl 10 MG TABLET 20 MG PO ×3 (06:37→15:13)
[2024-03-22 08:00] VITALS: BP 110/65; PULSE 59; RESP 18; TEMP 36.6; O2SAT 99
[2024-03-22] MEDS: NaPROXEN 500 MG TABLET PO ×2 (08:59→20:31)
[2024-03-22] MEDS: Sennosides/Docusate Sodium TABLET 1 TAB PO ×2 (08:59→20:31)
[2024-03-22] MEDS: lamoTRIgine 100 MG TABLET PO (08:59)
[2024-03-22] MEDS: fluvoxaMINE Maleate 50 MG TABLET PO ×2 (08:59→20:31)
[2024-03-22] MEDS: FLUoxetine HCl 20 MG CAPSULE 40 MG PO (08:59)
[2024-03-22] MEDS: Cholecalciferol (Vitamin D3) 25 MCG TABLET PO (08:59)
[2024-03-22] MEDS: polyethylene glycoL 3350 17 GM POWD.PACK PO (09:00)
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
[2024-03-22] MEDS: Calcium Oyster Shell Elemental 500 MG TABLET PO (12:58)
[2024-03-22] MEDS: Acetaminophen 325 MG TABLET 650 MG PO (16:41)
[2024-03-22] MEDS: Throat Lozenge, Medicated LOZENGE 1 LOZENGE MUCOUS MEM (16:41)
[2024-03-22] MEDS: LORazepam 0.5 MG TABLET PO (17:43)
[2024-03-22 19:41] VITALS: BP 98/62; PULSE 68; TEMP 36.6; O2SAT 97
[2024-03-22] MEDS: traZODone HCL 50 MG TABLET PO ×2 (20:31→21:47)
[2024-03-22] MEDS: hydrOXYzine HCL 25 MG TABLET PO (20:31)
[2024-03-22] MEDS: Lactulose 20 GM/30 ML SOLUTION PO (20:38)
[2024-03-23] MEDS: Levothyroxine Sodium 88 MCG TABLET PO (06:46)
[2024-03-23] MEDS: Methylphenidate HCl 10 MG TABLET 20 MG PO ×3 (07:22→16:10)
[2024-03-23 08:42] VITALS: BP 103/61; PULSE 62; RESP 16; TEMP 36.9; O2SAT 98
[2024-03-23] MEDS: NaPROXEN 500 MG TABLET PO ×2 (08:48→20:18)
[2024-03-23] MEDS: lamoTRIgine 100 MG TABLET PO (08:48)
[2024-03-23] MEDS: Lactulose 20 GM/30 ML SOLUTION PO (08:48)
[2024-03-23] MEDS: polyethylene glycoL 3350 17 GM POWD.PACK PO (08:48)
[2024-03-23] MEDS: FLUoxetine HCl 20 MG CAPSULE 40 MG PO (08:48)
[2024-03-23] MEDS: Cholecalciferol (Vitamin D3) 25 MCG TABLET PO (08:49)
[2024-03-23] MEDS: Calcium Oyster Shell Elemental 500 MG TABLET PO (08:49)
[2024-03-23] MEDS: fluvoxaMINE Maleate 50 MG TABLET PO ×2 (08:49→20:19)
[2024-03-23] MEDS: Sennosides/Docusate Sodium TABLET 1 TAB PO ×2 (08:49→20:18)
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
[2024-03-23 20:00] VITALS: BP 131/75; PULSE 76; TEMP 36.6; O2SAT 98
[2024-03-23] MEDS: LORazepam 0.5 MG TABLET PO (20:18)
[2024-03-23] MEDS: Calcium Carbonate 750 MG TAB.CHEW PO (20:18)
[2024-03-23] MEDS: Throat Lozenge, Medicated LOZENGE 1 LOZENGE MUCOUS MEM (20:18)
[2024-03-23] MEDS: traZODone HCL 50 MG TABLET PO ×2 (21:08→22:07)
[2024-03-24] MEDS: hydrOXYzine HCL 25 MG TABLET PO (00:06)
[2024-03-24] MEDS: OLANZapine 5 MG TABLET PO ×2 (02:07→23:39)
[2024-03-24 07:00] VITALS: BMI 20.5
[2024-03-24] MEDS: Levothyroxine Sodium 88 MCG TABLET PO (07:03)
[2024-03-24] MEDS: Methylphenidate HCl 10 MG TABLET 20 MG PO ×3 (07:03→16:37)
[2024-03-24 08:38] VITALS: BP 108/69; PULSE 62; RESP 16; TEMP 36.6; O2SAT 96
[2024-03-24] MEDS: Sennosides/Docusate Sodium TABLET 1 TAB PO ×2 (08:47→21:17)
[2024-03-24] MEDS: lamoTRIgine 100 MG TABLET PO (08:47)
[2024-03-24] MEDS: Calcium Oyster Shell Elemental 500 MG TABLET PO (08:47)
[2024-03-24] MEDS: polyethylene glycoL 3350 17 GM POWD.PACK PO (08:47)
[2024-03-24] MEDS: FLUoxetine HCl 20 MG CAPSULE 40 MG PO (08:47)
[2024-03-24] MEDS: Lactulose 20 GM/30 ML SOLUTION PO (08:47)
[2024-03-24] MEDS: Cholecalciferol (Vitamin D3) 25 MCG TABLET PO (08:48)
[2024-03-24] MEDS: NaPROXEN 500 MG TABLET PO ×2 (08:48→21:14)
[2024-03-24] MEDS: fluvoxaMINE Maleate 50 MG TABLET PO ×2 (08:48→21:18)
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
[2024-03-24] MEDS: Lactulose 20 GM/30 ML SOLUTION 40 GM PO (16:36)
[2024-03-24] MEDS: LORazepam 0.5 MG TABLET PO (17:14)
[2024-03-24 20:00] VITALS: BP 121/58; PULSE 73; TEMP 36.8; O2SAT 95
[2024-03-24] MEDS: traZODone HCL 50 MG TABLET PO ×2 (21:14→23:40)
[2024-03-24] MEDS: OLANZapine 2.5 MG TABLET PO (21:16)
[2024-03-25] MEDS: hydrOXYzine HCL 25 MG TABLET PO ×2 (02:55→21:49)
[2024-03-25] MEDS: Levothyroxine Sodium 88 MCG TABLET PO (07:14)
[2024-03-25] MEDS: Methylphenidate HCl 10 MG TABLET 20 MG PO ×3 (07:15→15:27)
[2024-03-25 08:00] VITALS: BP 104/50; PULSE 68; TEMP 36.9; O2SAT 97
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
[2024-03-25] MEDS: OLANZapine 2.5 MG TABLET PO ×2 (10:00→21:48)
[2024-03-25] MEDS: FLUoxetine HCl 20 MG CAPSULE 40 MG PO (10:00)
[2024-03-25] MEDS: fluvoxaMINE Maleate 50 MG TABLET PO ×2 (10:00→21:48)
[2024-03-25] MEDS: lamoTRIgine 100 MG TABLET PO (10:00)
[2024-03-25] MEDS: Calcium Oyster Shell Elemental 500 MG TABLET PO (10:01)
[2024-03-25] MEDS: NaPROXEN 500 MG TABLET PO ×2 (10:01→21:48)
[2024-03-25] MEDS: polyethylene glycoL 3350 17 GM POWD.PACK PO (10:01)
[2024-03-25] MEDS: Sennosides/Docusate Sodium TABLET 1 TAB PO ×2 (10:01→21:49)
[2024-03-25] MEDS: LORazepam 0.5 MG TABLET PO (14:08)
[2024-03-25 20:00] VITALS: BP 128/88; PULSE 76; RESP 18; TEMP 36.6; O2SAT 100
[2024-03-25] MEDS: OLANZapine 5 MG TABLET PO (21:48)
[2024-03-25] MEDS: traZODone HCL 50 MG TABLET PO (21:49)
[2024-03-26] MEDS: hydrOXYzine HCL 25 MG TABLET PO ×2 (03:02→21:43)
[2024-03-26] MEDS: traZODone HCL 50 MG TABLET PO (03:02)
[2024-03-26] MEDS: Levothyroxine Sodium 88 MCG TABLET PO (05:56)
[2024-03-26] MEDS: Methylphenidate HCl 10 MG TABLET 20 MG PO ×4 (06:02→15:01)
[2024-03-26 08:10] VITALS: BP 110/56; PULSE 69; TEMP 36.5; O2SAT 95
[2024-03-26] MEDS: FLUoxetine HCl 20 MG CAPSULE 40 MG PO (08:28)
[2024-03-26] MEDS: Calcium Oyster Shell Elemental 500 MG TABLET PO (08:29)
[2024-03-26] MEDS: fluvoxaMINE Maleate 50 MG TABLET PO ×2 (08:30→21:43)
[2024-03-26] MEDS: NaPROXEN 500 MG TABLET PO ×2 (08:31→21:44)
[2024-03-26] MEDS: OLANZapine 2.5 MG TABLET PO ×2 (08:32→21:42)
[2024-03-26] MEDS: Sennosides/Docusate Sodium TABLET 1 TAB PO ×2 (08:33→21:44)
[2024-03-26] MEDS: lamoTRIgine 100 MG TABLET PO (08:33)
[2024-03-26] MEDS: Cholecalciferol (Vitamin D3) 25 MCG TABLET PO (08:33)
[2024-03-26] MEDS: polyethylene glycoL 3350 17 GM POWD.PACK PO (08:34)
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
[2024-03-26 19:55] VITALS: BP 138/77; PULSE 72; RESP 18; TEMP 35.9; O2SAT 97
[2024-03-26] MEDS: Acetaminophen 325 MG TABLET 650 MG PO (20:14)
[2024-03-26] MEDS: LORazepam 1 MG TABLET PO (20:14)
[2024-03-26] MEDS: fluvoxaMINE Maleate 50 MG TABLET 100 MG PO (21:43)
[2024-03-27] MEDS: Methylphenidate HCl 10 MG TABLET 20 MG PO ×3 (06:34→15:22)
[2024-03-27] MEDS: Levothyroxine Sodium 88 MCG TABLET PO (06:34)
[2024-03-27 07:54] VITALS: BP 99/62; PULSE 68; TEMP 36.3; O2SAT 96
[2024-03-27] MEDS: FLUoxetine HCl 20 MG CAPSULE 40 MG PO (08:59)
[2024-03-27] MEDS: NaPROXEN 500 MG TABLET PO ×2 (08:59→22:19)
[2024-03-27] MEDS: Sennosides/Docusate Sodium TABLET 1 TAB PO ×2 (09:00→22:20)
[2024-03-27] MEDS: lamoTRIgine 100 MG TABLET PO (09:02)
[2024-03-27] MEDS: polyethylene glycoL 3350 17 GM POWD.PACK PO (09:05)
[2024-03-27] MEDS: Cholecalciferol (Vitamin D3) 25 MCG TABLET PO (09:08)
[2024-03-27] MEDS: Calcium Oyster Shell Elemental 500 MG TABLET PO (09:28)
[2024-03-27] MEDS: OLANZapine 5 MG TABLET PO (09:30)
[2024-03-27] MEDS: OLANZapine 2.5 MG TABLET PO ×2 (09:33→22:21)
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
[2024-03-27] MEDS: Acetaminophen 325 MG TABLET 650 MG PO (19:30)
[2024-03-27 20:00] VITALS: BP 120/84; PULSE 83; RESP 15; TEMP 36.4; O2SAT 97
[2024-03-27] MEDS: LORazepam 1 MG TABLET PO (20:09)
[2024-03-27] MEDS: fluvoxaMINE Maleate 50 MG TABLET 100 MG PO (22:20)
[2024-03-27] MEDS: traZODone HCL 50 MG TABLET PO (22:20)
[2024-03-28] MEDS: Methylphenidate HCl 10 MG TABLET 20 MG PO ×3 (06:49→14:32)
[2024-03-28] MEDS: Levothyroxine Sodium 88 MCG TABLET PO (06:50)
[2024-03-28 08:00] VITALS: BP 125/65; PULSE 69; RESP 16; TEMP 36.4; O2SAT 97
[2024-03-28] MEDS: polyethylene glycoL 3350 17 GM POWD.PACK PO (08:38)
[2024-03-28] MEDS: OLANZapine 2.5 MG TABLET PO ×2 (08:39→20:53)
[2024-03-28] MEDS: Sennosides/Docusate Sodium TABLET 1 TAB PO ×2 (08:39→20:53)
[2024-03-28] MEDS: Calcium Oyster Shell Elemental 500 MG TABLET PO (08:39)
[2024-03-28] MEDS: NaPROXEN 500 MG TABLET PO ×2 (08:39→20:54)
[2024-03-28] MEDS: fluvoxaMINE Maleate 50 MG TABLET PO (08:39)
[2024-03-28] MEDS: FLUoxetine HCl 20 MG CAPSULE 40 MG PO (08:39)
[2024-03-28] MEDS: lamoTRIgine 100 MG TABLET PO (08:39)
[2024-03-28 09:47] VITALS: BP 125/77
[2024-03-28] MEDS: cloNIDine HCL 0.1 MG TABLET PO ×2 (09:47→19:22)
[2024-03-28] MEDS: Cholecalciferol (Vitamin D3) 25 MCG TABLET PO (11:37)
[2024-03-28] MEDS: LORazepam 1 MG TABLET PO (14:32)
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
[2024-03-28 19:22] VITALS: BP 103/63
[2024-03-28 20:00] VITALS: BP 103/63; PULSE 73; TEMP 36.6; O2SAT 99
[2024-03-28] MEDS: traZODone HCL 50 MG TABLET PO (20:53)
[2024-03-28] MEDS: fluvoxaMINE Maleate 50 MG TABLET 100 MG PO (20:53)
[2024-03-28] MEDS: hydrOXYzine HCL 25 MG TABLET PO (20:53)
[2024-03-29] MEDS: Levothyroxine Sodium 88 MCG TABLET PO (06:25)
[2024-03-29 08:11] VITALS: BP 105/70; PULSE 55; RESP 18; TEMP 36.2; O2SAT 97
[2024-03-29] MEDS: NaPROXEN 500 MG TABLET PO ×2 (08:16→20:52)
[2024-03-29] MEDS: lamoTRIgine 100 MG TABLET PO (08:16)
[2024-03-29] MEDS: Calcium Oyster Shell Elemental 500 MG TABLET PO (08:16)
[2024-03-29] MEDS: Sennosides/Docusate Sodium TABLET 1 TAB PO ×2 (08:16→20:53)
[2024-03-29] MEDS: Cholecalciferol (Vitamin D3) 25 MCG TABLET PO (08:16)
[2024-03-29] MEDS: FLUoxetine HCl 20 MG CAPSULE 40 MG PO (08:16)
[2024-03-29] MEDS: polyethylene glycoL 3350 17 GM POWD.PACK PO (08:17)
[2024-03-29] MEDS: fluvoxaMINE Maleate 50 MG TABLET PO (08:17)
[2024-03-29] MEDS: OLANZapine 2.5 MG TABLET PO ×2 (08:17→20:53)
[2024-03-29] MEDS: Methylphenidate HCl 10 MG TABLET 20 MG PO ×3 (08:44→14:12)
[2024-03-29] MEDS: LORazepam 1 MG TABLET PO (11:09)
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
[2024-03-29] MEDS: OLANZapine 5 MG TABLET PO (19:31)
[2024-03-29 20:00] VITALS: BP 98/64; PULSE 69; TEMP 36.3; O2SAT 98
[2024-03-29] MEDS: fluvoxaMINE Maleate 50 MG TABLET 100 MG PO (20:52)
[2024-03-29] MEDS: traZODone HCL 50 MG TABLET PO ×2 (20:53→22:25)
[2024-03-30] MEDS: hydrOXYzine HCL 25 MG TABLET PO (00:06)
[2024-03-30] MEDS: Methylphenidate HCl 10 MG TABLET 20 MG PO ×3 (06:29→14:05)
[2024-03-30] MEDS: Levothyroxine Sodium 88 MCG TABLET PO (06:30)
[2024-03-30 10:45] VITALS: BP 113/62; PULSE 59; RESP 16; TEMP 36.6; O2SAT 95
[2024-03-30] MEDS: NaPROXEN 500 MG TABLET PO ×2 (11:15→22:04)
[2024-03-30] MEDS: lamoTRIgine 100 MG TABLET PO (11:15)
[2024-03-30] MEDS: Cholecalciferol (Vitamin D3) 25 MCG TABLET PO (11:15)
[2024-03-30] MEDS: polyethylene glycoL 3350 17 GM POWD.PACK PO (11:15)
[2024-03-30] MEDS: FLUoxetine HCl 20 MG CAPSULE 40 MG PO (11:15)
[2024-03-30] MEDS: Calcium Oyster Shell Elemental 500 MG TABLET PO (11:16)
[2024-03-30] MEDS: Sennosides/Docusate Sodium TABLET 1 TAB PO ×2 (11:16→22:05)
[2024-03-30] MEDS: OLANZapine 2.5 MG TABLET PO ×2 (11:16→22:17)
[2024-03-30] MEDS: fluvoxaMINE Maleate 50 MG TABLET PO (11:27)
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
[2024-03-30] MEDS: LORazepam 1 MG TABLET PO (19:15)
[2024-03-30 20:00] VITALS: BP 147/90; PULSE 75; RESP 18; TEMP 36.1; O2SAT 95
[2024-03-30] MEDS: fluvoxaMINE Maleate 50 MG TABLET 100 MG PO (22:04)
[2024-03-30] MEDS: OLANZapine 5 MG TABLET PO (22:05)
[2024-03-30] MEDS: traZODone HCL 50 MG TABLET PO (22:05)
[2024-03-31] MEDS: Methylphenidate HCl 10 MG TABLET 20 MG PO ×3 (06:41→14:14)
[2024-03-31] MEDS: Levothyroxine Sodium 88 MCG TABLET PO (06:41)
[2024-03-31 07:00] VITALS: BMI 19.8
[2024-03-31 08:00] VITALS: BP 108/73; PULSE 70; RESP 18; TEMP 35.8; O2SAT 100
[2024-03-31] MEDS: OLANZapine 2.5 MG TABLET PO ×2 (08:38→22:21)
[2024-03-31] MEDS: Cholecalciferol (Vitamin D3) 25 MCG TABLET PO (08:38)
[2024-03-31] MEDS: fluvoxaMINE Maleate 50 MG TABLET PO (08:38)
[2024-03-31] MEDS: Calcium Oyster Shell Elemental 500 MG TABLET PO (08:38)
[2024-03-31] MEDS: FLUoxetine HCl 20 MG CAPSULE 40 MG PO (08:39)
[2024-03-31] MEDS: Sennosides/Docusate Sodium TABLET 1 TAB PO ×2 (08:39→22:19)
[2024-03-31] MEDS: NaPROXEN 500 MG TABLET PO ×2 (08:39→22:20)
[2024-03-31] MEDS: lamoTRIgine 100 MG TABLET PO (08:39)
[2024-03-31] MEDS: LORazepam 1 MG TABLET PO (15:13)
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
[2024-03-31 20:00] VITALS: BP 131/72; PULSE 79; TEMP 36.6; O2SAT 99
[2024-03-31] MEDS: fluvoxaMINE Maleate 50 MG TABLET 100 MG PO (22:20)
[2024-03-31] MEDS: traZODone HCL 50 MG TABLET PO (22:27)
[2024-03-31] MEDS: OLANZapine 5 MG TABLET PO (23:08)
[2024-04-01] MEDS: Levothyroxine Sodium 88 MCG TABLET PO (07:22)
[2024-04-01] MEDS: Methylphenidate HCl 10 MG TABLET 20 MG PO ×3 (07:23→15:00)
[2024-04-01] MEDS: OLANZapine 5 MG TABLET PO ×2 (07:35→18:09)
[2024-04-01] MEDS: LORazepam 1 MG TABLET PO (07:36)
[2024-04-01 08:00] VITALS: BP 113/59; PULSE 66; TEMP 36.4; O2SAT 98
[2024-04-01] MEDS: lamoTRIgine 100 MG TABLET PO (09:20)
[2024-04-01] MEDS: fluvoxaMINE Maleate 50 MG TABLET PO (09:20)
[2024-04-01] MEDS: Cholecalciferol (Vitamin D3) 25 MCG TABLET PO (09:20)
[2024-04-01] MEDS: OLANZapine 2.5 MG TABLET PO ×2 (09:20→20:48)
[2024-04-01] MEDS: Sennosides/Docusate Sodium TABLET 1 TAB PO ×2 (09:20→20:49)
[2024-04-01] MEDS: NaPROXEN 500 MG TABLET PO ×2 (09:20→20:49)
[2024-04-01] MEDS: Calcium Oyster Shell Elemental 500 MG TABLET PO (09:22)
[2024-04-01] MEDS: FLUoxetine HCl 10 MG CAPSULE 30 MG PO (09:22)
[2024-04-01] MEDS: polyethylene glycoL 3350 17 GM POWD.PACK PO (09:58)
--- NOTE | 2024-04-01 10:03 | HO.PSYCHPN ---
Subjective Subjective Date of Service: 04/01/24 Reason For Visit: depressed Subjective Notes: Conditional Voluntary Healthcare Proxy: No Guardianship: No Medical Problems Affecting Mental Status: No Interim History: Discussed discharge I will use drugs or kill myself if discharged. States she has found a [employer] therapist in [place]. Reports racing of thoughts when thinking of leaving Discussed fear of her brother Meño and his . We will talk with brother Mahesh on 04/04/24. Pt is considering no involvement with Meño. Encouraged to work on identification of coping skills to use when discharged to avoid decline. Medication Compliance: Yes Side effects from medications: No Attending Groups: Yes Review of Systems Acute medical concerns: No Medical Review of Systems: unchanged Review of Systems Review of Systems Denies Mental Status Exam Mental Status Exam Patient Appearance: Appropriate Patient Orientation: Person, Place, Time and Situation Level of Consciousness: Alert Patient Behavior: Talkative and Good Eye Contact Mood Description: Depressed and Anxious Affect Description: Flat Patient Cognition Impaired: No Ability to Follow Directions: Good Speech Pattern: Spontaneous Speech Memory Description: Intact Hallucinations: None Delusions: Not Present Thought Process: Rumination Thought Content: positive for Perseveration and positive for Suicidal Ideation (if discharged) Depressive Symptoms: Increased Anxiety Judgement: Fair Diagnostics Vital Signs (24Hr): Vital Signs - 24 hr 03/31/24 20:00 04/01/24 08:00 Temperature 97.8 F 97.5 F Pulse Rate 79 66 Blood Pressure 131/72 113/59 L Pulse Oximetry 99 98 Oxygen Delivery Method Room Air Room Air BMI result Body Mass Index 19.8 Labs 03/10/24 15:48 03/10/24 15:48 Imaging Radiology Impressions: ITS Impressions KUB X-Ray 03/18/24 15:00 IMPRESSION: Moderate constipation. Electronically signed by: Jass Caldwell MD 03/18/2024 04:38 PM EST RP KUB X-Ray 03/23/24 09:46 IMPRESSION: Mild constipation. Electronically signed by: Jass Caldwell MD 03/24/2024 01:25 PM EST RP Medications Medications Current Medications Acetaminophen (Acetaminophen 325 Mg Tablet) 650 mg PO Q6H PRN PRN Reason: Headache/Pain Mild Scale (1-3) Last Admin: 03/27/24 19:30 Dose: 650 mg Al Hydroxide/Mg Hydroxide (Magnesium Hydrox/Alum Hydrox 30 Ml Oral.Susp) 30 ml PO Q6H PRN PRN Reason: Heartburn/Nausea Last Admin: 03/17/24 00:38 Dose: 30 ml Benzocaine (Throat Lozenge, Medicated Lozenge) 1 lozenge MUCOUS MEM Q2H PRN PRN Reason: Dry Throat Last Admin: 03/23/24 20:18 Dose: 1 lozenge Calcium Carbonate (Calcium Oyster Shell Elemental 500 Mg Tablet) 500 mg PO DAILY [facility] Last Admin: 04/01/24 09:22 Dose: 500 mg Calcium Carbonate (Calcium Carbonate 750 Mg Tab.Chew) 750 mg PO TID PRN PRN Reason: Indigestion Last Admin: 03/23/24 20:18 Dose: 750 mg Clonidine HCl (Clonidine Hcl 0.1 Mg Tablet) 0.1 mg PO Q4H PRN; Protocol PRN Reason: anxiety Last Admin: 03/28/24 19:22 Dose: 0.1 mg Fluoxetine HCl (Fluoxetine Hcl 10 Mg Capsule) 30 mg PO DAILY [facility] Last Admin: 04/01/24 09:22 Dose: 30 mg Fluvoxamine Maleate (Fluvoxamine Maleate 50 Mg Tablet) 50 mg PO DAILY [facility] Last Admin: 04/01/24 09:20 Dose: 50 mg Fluvoxamine Maleate (Fluvoxamine Maleate 50 Mg Tablet) 100 mg PO BEDTIME [facility] Last Admin: 03/31/24 22:20 Dose: 100 mg Hydroxyzine HCl (Hydroxyzine Hcl 25 Mg Tablet) 25 mg PO Q6H PRN PRN Reason: Anxiety Last Admin: 03/30/24 00:06 Dose: 25 mg Lamotrigine (Lamotrigine 100 Mg Tablet) 100 mg PO DAILY [facility] Last Admin: 04/01/24 09:20 Dose: 100 mg Levothyroxine Sodium (Levothyroxine Sodium 88 Mcg Tablet) 88 mcg PO DAILY@0600 [facility] Last Admin: 04/01/24 07:22 Dose: 88 mcg Lorazepam (Lorazepam 1 Mg Tablet) 1 mg PO DAILY PRN PRN Reason: Panic Last Admin: 04/01/24 07:36 Dose: 1 mg Magnesium Hydroxide (Milk Of Magnesia 30 Ml Oral.Susp) 30 ml PO DAILY PRN PRN Reason: Constipation Last Admin: 03/20/24 21:00 Dose: 30 ml Meclizine HCl (Meclizine Hcl 12.5 Mg Tablet) 12.5 mg PO TID PRN PRN Reason: Dizziness Last Admin: 03/16/24 22:15 Dose: 12.5 mg Methylphenidate HCl (Methylphenidate Hcl 10 Mg Tablet) 20 mg PO TID@0700,1100,1500 [facility] Last Admin: 04/01/24 07:23 Dose: 20 mg Naproxen (Naproxen 500 Mg Tablet) 500 mg PO BID [facility] Last Admin: 04/01/24 09:20 Dose: 500 mg Nicotine Polacrilex (Nicotine Polacrilex 2 Mg Gum) 4 mg BUCCAL Q2H PRN PRN Reason: Nicotine Cravings Olanzapine (Olanzapine 5 Mg Tablet) 5 mg PO TID PRN PRN Reason: agitation Last Admin: 04/01/24 07:35 Dose: 5 mg Olanzapine (Olanzapine 2.5 Mg Tablet) 2.5 mg PO BID [facility] Last Admin: 04/01/24 09:20 Dose: 2.5 mg Olanzapine (Olanzapine 5 Mg Tablet) 5 mg PO TID PRN PRN Reason: agitation Last Admin: 03/29/24 19:31 Dose: 5 mg Polyethylene Glycol (Polyethylene Glycol 3350 17 Gm Powd.Pack) 17 gm PO DAILY [facility] Last Admin: 04/01/24 09:58 Dose: 17 gm Saliva Substitute (Dry Mouth [place] 60 Ml [place]) 1 spray MUCOUS MEM Q2H PRN PRN Reason: dry throat Senna/Docusate Sodium (Sennosides/Docusate Sodium Tablet) 1 tab PO BID [facility] Last Admin: 04/01/24 09:20 Dose: 1 tab Trazodone HCl (Trazodone Hcl 50 Mg Tablet) 50 mg PO BEDTIME MRX1 PRN PRN Reason: Insomnia Last Admin: 03/31/24 22:27 Dose: 50 mg Vitamin D (Cholecalciferol (Vitamin D3) 25 Mcg Tablet) 25 mcg PO DAILY [facility] Last Admin: 04/01/24 09:20 Dose: 25 mcg Allergies Allergies Allergy/AdvReac Type Severity Reaction Status Date / Time codeine Allergy Swelling Verified 03/10/24 14:55 Assessment & Plan Assessment & Plan (1) Recurrent major depression-severe: Status: Acute Code(s): F33.2 - Major depressive disorder, recurrent severe without psychotic features (2) PTSD (post-traumatic stress disorder): Status: Acute Code(s): F43.10 - Post-traumatic stress disorder, unspecified Plan PTSD, Recurrent Major Depression, OCD, Anorexia Nervosa,Binge Purge Type, Borderline Personality Disorder, Polysubstance use disorder-alcohol, cannabis, opiates, TBI. Hospital course: 03/05: continue current tx plan. 03/16/24-0ngoing depression with si - and complicating hx tbi and poor reactivity to medications- requires ongoing inpatient level of care 03/17/24 for now will continue current medications. added miralax and senakot for constipation. Consider ECT for severe refractory depression and suicidality. 03/18 continues to report constipation, no vomiting nor abdominal pain. Had head CT- microvascular changes and atrophy. no acute findings. more hopeless and tearful today but willing to get better and continue tx. consider ECT. 03/20/2024: No changes to current plan. 03/21 continue tx. may benefit from med changes, or even ECT, 03/24/24: Olanzapine 2.5 mg bid to address sx of anxiety, augment SSRI's 03/25/24: Continue tx 03/26 Patient initially reports that she is not doing any better however after more discussion and consideration of her behaviors, she agrees that she is feeling a little less depressed and a little less anxious and that she can tell because she is attending to her ADLs, showering, dressing herself well. She also says that she is actually starting to have hope that she will be able to get better. However she reports that her mood continues to fluctuate throughout the day and that SI thoughts come and go. She is afraid of discharge and getting suicidal when she leaves. -Discussed more of her history, symptoms,, trauma, bulimia, childhood experiences, medication trials. Patient says she has been on Prozac for over 30 years but has never really felt much benefit from it, even when it was at 80 mg. 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 She has been on 50 mg b.i.d. for few months. 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 -increasing Luvox 100 mg q.h.s. -leave Prozac at 40 mg; will watch for serotonin syndrome; however if Luvox continues to be effective, may consider tapering and discontinuing Prozac since she says it has never been helpful 03/27 no change in presentation; tolerated increased Luvox; continue current regimen 03/28 continue discussion with pt/brother about guns in mother's home and visitation. 04/01 continue tx, increase luvox, pt is asked to give some consideration over the weekend to coping skills she has learned and can use in community when discharged. Plan: CV, 15 minute checks -Continue Luvox 50 mg daily -INCREASE Luvox to 100mg qhs (patient said this medication has consistently been effective) -Continue Prozac 40 mg for now; patient says this medication has not been effective over the years; will consider tapering if Luvox proves effective enough -Continue current Lamictal dose for now Medical care/consult as needed. Pt has several issues not addressed --Neuro consult-recent falls, balance issues reported --Xrays R Ankle, Hip-reports significant pain Collateral contacts Continue current regime at this time-pt reports several trials-will talk with OP team prior to making changes. Aftercare/Discharge planning Reason for continued inpatient stay Substantial Risk for: rapid decompensation Time Spent With Patient Time: Total time managing care of this patient today ____ minutes.
[2024-04-01 20:00] VITALS: BP 134/84; PULSE 83; RESP 15; TEMP 36; O2SAT 99
[2024-04-01] MEDS: fluvoxaMINE Maleate 50 MG TABLET 100 MG PO (20:49)
[2024-04-01] MEDS: traZODone HCL 50 MG TABLET PO ×2 (20:49→23:07)
[2024-04-01] MEDS: hydrOXYzine HCL 25 MG TABLET PO (23:07)
[2024-04-02] MEDS: Levothyroxine Sodium 88 MCG TABLET PO (06:53)
[2024-04-02] MEDS: Methylphenidate HCl 10 MG TABLET 20 MG PO ×3 (06:53→15:31)
[2024-04-02 08:29] VITALS: BP 117/62; PULSE 70; RESP 16; TEMP 36.9; O2SAT 99
[2024-04-02] MEDS: polyethylene glycoL 3350 17 GM POWD.PACK PO (09:07)
[2024-04-02] MEDS: Cholecalciferol (Vitamin D3) 25 MCG TABLET PO (09:08)
[2024-04-02] MEDS: Calcium Oyster Shell Elemental 500 MG TABLET PO (09:08)
[2024-04-02] MEDS: fluvoxaMINE Maleate 50 MG TABLET 100 MG PO ×2 (09:08→20:07)
[2024-04-02] MEDS: OLANZapine 2.5 MG TABLET PO ×2 (09:08→20:07)
[2024-04-02] MEDS: lamoTRIgine 100 MG TABLET PO (09:08)
[2024-04-02] MEDS: FLUoxetine HCl 10 MG CAPSULE 30 MG PO (09:08)
[2024-04-02] MEDS: Sennosides/Docusate Sodium TABLET 1 TAB PO ×2 (09:09→20:07)
[2024-04-02] MEDS: NaPROXEN 500 MG TABLET PO ×2 (09:09→20:07)
[2024-04-02] MEDS: Calcium Carbonate 750 MG TAB.CHEW PO (10:36)
[2024-04-02] MEDS: OLANZapine 5 MG TABLET PO ×2 (11:28→21:15)
--- NOTE | 2024-04-02 11:44 | HO.PSYCHPN ---
Subjective Subjective Date of Service: 04/02/24 Reason For Visit: depressed Subjective Notes: Conditional Voluntary Interim History: Patient was seen and discussed in rounds today. Records and plans were reviewed. She talked about her medication history and how changes are beneficial for short period of time and then the benefits decrease. She is hopeful. Questions about her current medications discussed. No complaints or side effects. No changes were made today. No SI. Review of Systems Review of Systems Yes all other systems are reviewed and are negative Mental Status Exam Mental Status Exam Patient Appearance: Appropriate Patient Orientation: Person, Place, Time and Situation Level of Consciousness: Alert Patient Behavior: Talkative and Good Eye Contact Mood Description: Depressed and Anxious Affect Description: Flat Patient Cognition Impaired: No Ability to Follow Directions: Good Speech Pattern: Spontaneous Speech Memory Description: Intact Hallucinations: None Delusions: Not Present Thought Process: Rumination Thought Content: positive for Perseveration and positive for Suicidal Ideation (if discharged) Depressive Symptoms: Increased Anxiety Judgement: Fair Diagnostics Vital Signs (24Hr): Vital Signs - 24 hr 04/01/24 20:00 04/02/24 08:29 Temperature 96.8 F 98.4 F Pulse Rate 83 70 Respiratory Rate 15 16 Blood Pressure 134/84 117/62 Pulse Oximetry 99 99 Oxygen Delivery Method Room Air BMI result Body Mass Index 19.8 Labs 03/10/24 15:48 03/10/24 15:48 Imaging Radiology Impressions: ITS Impressions [facility]UB X-Ray 03/18/24 15:00 IMPRESSION: Moderate constipation. Electronically signed by: Jass Caldwell MD 03/18/2024 04:38 PM EST RP [facility] X-Ray 03/23/24 09:46 IMPRESSION: Mild constipation. Electronically signed by: Jass Caldwell MD 03/24/2024 01:25 PM EST RP Medications Medications Current Medications Acetaminophen (Acetaminophen 325 Mg Tablet) 650 mg PO Q6H PRN PRN Reason: Headache/Pain Mild Scale (1-3) Last Admin: 03/27/24 19:30 Dose: 650 mg Al Hydroxide/Mg Hydroxide (Magnesium Hydrox/Alum Hydrox 30 Ml Oral.Susp) 30 ml PO Q6H PRN PRN Reason: Heartburn/Nausea Last Admin: 03/17/24 00:38 Dose: 30 ml Benzocaine (Throat Lozenge, Medicated Lozenge) 1 lozenge MUCOUS MEM Q2H PRN PRN Reason: Dry Throat Last Admin: 03/23/24 20:18 Dose: 1 lozenge Calcium Carbonate (Calcium Oyster Shell Elemental 500 Mg Tablet) 500 mg PO DAILY [facility] Last Admin: 04/02/24 09:08 Dose: 500 mg Calcium Carbonate (Calcium Carbonate 750 Mg Tab.Chew) 750 mg PO TID PRN PRN Reason: Indigestion Last Admin: 04/02/24 10:36 Dose: 750 mg Clonidine HCl (Clonidine Hcl 0.1 Mg Tablet) 0.1 mg PO Q4H PRN; Protocol PRN Reason: anxiety Last Admin: 03/28/24 19:22 Dose: 0.1 mg Fluoxetine HCl (Fluoxetine Hcl 10 Mg Capsule) 30 mg PO DAILY [facility] Last Admin: 04/02/24 09:08 Dose: 30 mg Fluvoxamine Maleate (Fluvoxamine Maleate 50 Mg Tablet) 100 mg PO BEDTIME [facility] Last Admin: 04/01/24 20:49 Dose: 100 mg Fluvoxamine Maleate (Fluvoxamine Maleate 50 Mg Tablet) 100 mg PO DAILY [facility] Last Admin: 04/02/24 09:08 Dose: 100 mg Hydroxyzine HCl (Hydroxyzine Hcl 25 Mg Tablet) 25 mg PO Q6H PRN PRN Reason: Anxiety Last Admin: 04/01/24 23:07 Dose: 25 mg Lamotrigine (Lamotrigine 100 Mg Tablet) 100 mg PO DAILY [facility] Last Admin: 04/02/24 09:08 Dose: 100 mg Levothyroxine Sodium (Levothyroxine Sodium 88 Mcg Tablet) 88 mcg PO DAILY@0600 [facility] Last Admin: 04/02/24 06:53 Dose: 88 mcg Lorazepam (Lorazepam 1 Mg Tablet) 1 mg PO DAILY PRN PRN Reason: Panic Last Admin: 04/01/24 07:36 Dose: 1 mg Magnesium Hydroxide (Milk Of Magnesia 30 Ml Oral.Susp) 30 ml PO DAILY PRN PRN Reason: Constipation Last Admin: 03/20/24 21:00 Dose: 30 ml Meclizine HCl (Meclizine Hcl 12.5 Mg Tablet) 12.5 mg PO TID PRN PRN Reason: Dizziness Last Admin: 03/16/24 22:15 Dose: 12.5 mg Methylphenidate HCl (Methylphenidate Hcl 10 Mg Tablet) 20 mg PO TID@0700,1100,1500 [facility] Last Admin: 04/02/24 11:29 Dose: 20 mg Naproxen (Naproxen 500 Mg Tablet) 500 mg PO BID [facility] Last Admin: 04/02/24 09:09 Dose: 500 mg Nicotine Polacrilex (Nicotine Polacrilex 2 Mg Gum) 4 mg BUCCAL Q2H PRN PRN Reason: Nicotine Cravings Olanzapine (Olanzapine 5 Mg Tablet) 5 mg PO TID PRN PRN Reason: agitation Last Admin: 04/02/24 11:28 Dose: 5 mg Olanzapine (Olanzapine 2.5 Mg Tablet) 2.5 mg PO BID [facility] Last Admin: 04/02/24 09:08 Dose: 2.5 mg Olanzapine (Olanzapine 5 Mg Tablet) 5 mg PO TID PRN PRN Reason: agitation Last Admin: 04/01/24 18:09 Dose: 5 mg Polyethylene Glycol (Polyethylene Glycol 3350 17 Gm Powd.Pack) 17 gm PO DAILY [facility] Last Admin: 04/02/24 09:07 Dose: 17 gm Saliva Substitute (Dry Mouth [place] 60 Ml [place]) 1 spray MUCOUS MEM Q2H PRN PRN Reason: dry throat Senna/Docusate Sodium (Sennosides/Docusate Sodium Tablet) 1 tab PO BID [facility] Last Admin: 04/02/24 09:09 Dose: 1 tab Trazodone HCl (Trazodone Hcl 50 Mg Tablet) 50 mg PO BEDTIME MRX1 PRN PRN Reason: Insomnia Last Admin: 04/01/24 23:07 Dose: 50 mg Vitamin D (Cholecalciferol (Vitamin D3) 25 Mcg Tablet) 25 mcg PO DAILY [facility] Last Admin: 04/02/24 09:08 Dose: 25 mcg Allergies Allergies Allergy/AdvReac Type Severity Reaction Status Date / Time codeine Allergy Swelling Verified 03/10/24 14:55 Assessment & Plan Assessment & Plan (1) Recurrent major depression-severe: Status: Acute Code(s): F33.2 - Major depressive disorder, recurrent severe without psychotic features (2) PTSD (post-traumatic stress disorder): Status: Acute Code(s): F43.10 - Post-traumatic stress disorder, unspecified Plan PTSD, Recurrent Major Depression, OCD, Anorexia Nervosa,Binge Purge Type, Borderline Personality Disorder, Polysubstance use disorder-alcohol, cannabis, opiates, TBI. Hospital course: 03/05: continue current tx plan. 03/16/24-0ngoing depression with si - and complicating hx tbi and poor reactivity to medications- requires ongoing inpatient level of care 03/17/24 for now will continue current medications. added miralax and senakot for constipation. Consider ECT for severe refractory depression and suicidality. 03/18 continues to report constipation, no vomiting nor abdominal pain. Had head CT- microvascular changes and atrophy. no acute findings. more hopeless and tearful today but willing to get better and continue tx. consider ECT. 03/20/2024: No changes to current plan. 03/21 continue tx. may benefit from med changes, or even ECT, 03/24/24: Olanzapine 2.5 mg bid to address sx of anxiety, augment SSRI's 03/25/24: Continue tx 03/26 Patient initially reports that she is not doing any better however after more discussion and consideration of her behaviors, she agrees that she is feeling a little less depressed and a little less anxious and that she can tell because she is attending to her ADLs, showering, dressing herself well. She also says that she is actually starting to have hope that she will be able to get better. However she reports that her mood continues to fluctuate throughout the day and that SI thoughts come and go. She is afraid of discharge and getting suicidal when she leaves. -Discussed more of her history, symptoms,, trauma, bulimia, childhood experiences, medication trials. Patient says she has been on Prozac for over 30 years but has never really felt much benefit from it, even when it was at 80 mg. 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 She has been on 50 mg b.i.d. for few months. 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 -increasing Luvox 100 mg q.h.s. -leave Prozac at 40 mg; will watch for serotonin syndrome; however if Luvox continues to be effective, may consider tapering and discontinuing Prozac since she says it has never been helpful 03/27 no change in presentation; tolerated increased Luvox; continue current regimen 03/28 continue discussion with pt/brother about guns in mother's home and visitation. 04/01 continue tx, increase luvox, pt is asked to give some consideration over the weekend to coping skills she has learned and can use in community when discharged. Plan: CV, 15 minute checks -Continue Luvox 50 mg daily -INCREASE Luvox to 100mg qhs (patient said this medication has consistently been effective) -Continue Prozac 40 mg for now; patient says this medication has not been effective over the years; will consider tapering if Luvox proves effective enough -Continue current Lamictal dose for now Medical care/consult as needed. Pt has several issues not addressed --Neuro consult-recent falls, balance issues reported --Xrays R Ankle, Hip-reports significant pain Collateral contacts Continue current regime at this time-pt reports several trials-will talk with OP team prior to making changes. Aftercare/Discharge planning Reason for continued inpatient stay Substantial Risk for: med/psych decompensation Time Spent With Patient Time: Total time managing care of this patient today ____ minutes.
[2024-04-02 20:00] VITALS: BP 132/82; PULSE 84; RESP 15; TEMP 36.8; O2SAT 96
[2024-04-02] MEDS: Acetaminophen 325 MG TABLET 650 MG PO (20:06)
[2024-04-02] MEDS: traZODone HCL 50 MG TABLET PO ×2 (20:07→21:16)
[2024-04-02] MEDS: LORazepam 1 MG TABLET PO (20:10)
[2024-04-02] MEDS: cloNIDine HCL 0.1 MG TABLET PO (21:52)
[2024-04-03] MEDS: Methylphenidate HCl 10 MG TABLET 20 MG PO ×3 (06:54→15:36)
[2024-04-03] MEDS: Levothyroxine Sodium 88 MCG TABLET PO (06:54)
[2024-04-03 08:23] VITALS: BP 103/55; PULSE 66; RESP 16; TEMP 36.8; O2SAT 97
[2024-04-03 08:47] VITALS: BP 102/64; PULSE 76
[2024-04-03] MEDS: polyethylene glycoL 3350 17 GM POWD.PACK PO (08:52)
[2024-04-03] MEDS: FLUoxetine HCl 10 MG CAPSULE 30 MG PO (08:52)
[2024-04-03] MEDS: fluvoxaMINE Maleate 50 MG TABLET 100 MG PO ×2 (08:52→21:33)
[2024-04-03] MEDS: lamoTRIgine 100 MG TABLET PO (08:53)
[2024-04-03] MEDS: Sennosides/Docusate Sodium TABLET 1 TAB PO ×2 (08:53→21:29)
[2024-04-03] MEDS: Cholecalciferol (Vitamin D3) 25 MCG TABLET PO (08:53)
[2024-04-03] MEDS: Calcium Oyster Shell Elemental 500 MG TABLET PO (08:53)
[2024-04-03] MEDS: OLANZapine 2.5 MG TABLET PO ×2 (08:53→21:29)
[2024-04-03] MEDS: NaPROXEN 500 MG TABLET PO ×2 (08:53→21:29)
--- NOTE | 2024-04-03 10:23 | HO.PSYCHPN ---
Subjective Subjective Date of Service: 04/03/24 Reason For Visit: depressed Subjective Notes: Conditional Voluntary Interim History: Patient was seen and discussed in rounds today. Records and plans were reviewed. She has been doing well and continues to feel some improvement. She is in the process of switching from Prozac to Luvox and I will decrease her Prozac down to 12 as apparently planned. No SI. Eating and sleeping well. Review of Systems Review of Systems Yes all other systems are reviewed and are negative Mental Status Exam Mental Status Exam Patient Appearance: Appropriate Patient Orientation: Person, Place, Time and Situation Level of Consciousness: Alert Patient Behavior: Talkative and Good Eye Contact Mood Description: Depressed and Anxious Affect Description: Flat Patient Cognition Impaired: No Ability to Follow Directions: Good Speech Pattern: Spontaneous Speech Memory Description: Intact Hallucinations: None Delusions: Not Present Thought Process: Rumination Thought Content: positive for Perseveration and positive for Suicidal Ideation (if discharged) Depressive Symptoms: Increased Anxiety Judgement: Fair Diagnostics Vital Signs (24Hr): Vital Signs - 24 hr 04/02/24 20:00 04/03/24 08:23 04/03/24 08:47 Temperature 98.2 F 98.2 F Pulse Rate 84 66 76 Respiratory Rate 15 16 Blood Pressure 132/82 103/55 L 102/64 Pulse Oximetry 96 97 Oxygen Delivery Method Room Air BMI result Body Mass Index 19.8 Labs 03/10/24 15:48 03/10/24 15:48 Imaging Radiology Impressions: ITS Impressions KUB X-Ray 03/18/24 15:00 IMPRESSION: Moderate constipation. Electronically signed by: Jass Caldwell MD 03/18/2024 04:38 PM EST RP KUB X-Ray 03/23/24 09:46 IMPRESSION: Mild constipation. Electronically signed by: Jass Caldwell MD 03/24/2024 01:25 PM EST RP Medications Medications Current Medications Acetaminophen (Acetaminophen 325 Mg Tablet) 650 mg PO Q6H PRN PRN Reason: Headache/Pain Mild Scale (1-3) Last Admin: 04/02/24 20:06 Dose: 650 mg Al Hydroxide/Mg Hydroxide (Magnesium Hydrox/Alum Hydrox 30 Ml Oral.Susp) 30 ml PO Q6H PRN PRN Reason: Heartburn/Nausea Last Admin: 03/17/24 00:38 Dose: 30 ml Benzocaine (Throat Lozenge, Medicated Lozenge) 1 lozenge MUCOUS MEM Q2H PRN PRN Reason: Dry Throat Last Admin: 03/23/24 20:18 Dose: 1 lozenge Calcium Carbonate (Calcium Oyster Shell Elemental 500 Mg Tablet) 500 mg PO DAILY [facility] Last Admin: 04/03/24 08:53 Dose: 500 mg Calcium Carbonate (Calcium Carbonate 750 Mg Tab.Chew) 750 mg PO TID PRN PRN Reason: Indigestion Last Admin: 04/02/24 10:36 Dose: 750 mg Clonidine HCl (Clonidine Hcl 0.1 Mg Tablet) 0.1 mg PO Q4H PRN; Protocol PRN Reason: anxiety Last Admin: 04/02/24 21:52 Dose: 0.1 mg Fluoxetine HCl (Fluoxetine Hcl 10 Mg Capsule) 30 mg PO DAILY [facility] Last Admin: 04/03/24 08:52 Dose: 30 mg Fluvoxamine Maleate (Fluvoxamine Maleate 50 Mg Tablet) 100 mg PO BEDTIME [facility] Last Admin: 04/02/24 20:07 Dose: 100 mg Fluvoxamine Maleate (Fluvoxamine Maleate 50 Mg Tablet) 100 mg PO DAILY [facility] Last Admin: 04/03/24 08:52 Dose: 100 mg Hydroxyzine HCl (Hydroxyzine Hcl 25 Mg Tablet) 25 mg PO Q6H PRN PRN Reason: Anxiety Last Admin: 04/01/24 23:07 Dose: 25 mg Lamotrigine (Lamotrigine 100 Mg Tablet) 100 mg PO DAILY [facility] Last Admin: 04/03/24 08:53 Dose: 100 mg Levothyroxine Sodium (Levothyroxine Sodium 88 Mcg Tablet) 88 mcg PO DAILY@0600 [facility] Last Admin: 04/03/24 06:54 Dose: 88 mcg Lorazepam (Lorazepam 1 Mg Tablet) 1 mg PO DAILY PRN PRN Reason: Panic Last Admin: 04/02/24 20:10 Dose: 1 mg Magnesium Hydroxide (Milk Of Magnesia 30 Ml Oral.Susp) 30 ml PO DAILY PRN PRN Reason: Constipation Last Admin: 03/20/24 21:00 Dose: 30 ml Meclizine HCl (Meclizine Hcl 12.5 Mg Tablet) 12.5 mg PO TID PRN PRN Reason: Dizziness Last Admin: 03/16/24 22:15 Dose: 12.5 mg Methylphenidate HCl (Methylphenidate Hcl 10 Mg Tablet) 20 mg PO TID@0700,1100,1500 [facility] Last Admin: 04/03/24 06:54 Dose: 20 mg Naproxen (Naproxen 500 Mg Tablet) 500 mg PO BID [facility] Last Admin: 04/03/24 08:53 Dose: 500 mg Nicotine Polacrilex (Nicotine Polacrilex 2 Mg Gum) 4 mg BUCCAL Q2H PRN PRN Reason: Nicotine Cravings Olanzapine (Olanzapine 5 Mg Tablet) 5 mg PO TID PRN PRN Reason: agitation Last Admin: 04/02/24 21:15 Dose: 5 mg Olanzapine (Olanzapine 2.5 Mg Tablet) 2.5 mg PO BID [facility] Last Admin: 04/03/24 08:53 Dose: 2.5 mg Olanzapine (Olanzapine 5 Mg Tablet) 5 mg PO TID PRN PRN Reason: agitation Last Admin: 04/01/24 18:09 Dose: 5 mg Polyethylene Glycol (Polyethylene Glycol 3350 17 Gm Powd.Pack) 17 gm PO DAILY [facility] Last Admin: 04/03/24 08:52 Dose: 17 gm Saliva Substitute (Dry Mouth [place] 60 Ml [place]) 1 spray MUCOUS MEM Q2H PRN PRN Reason: dry throat Senna/Docusate Sodium (Sennosides/Docusate Sodium Tablet) 1 tab PO BID [facility] Last Admin: 04/03/24 08:53 Dose: 1 tab Trazodone HCl (Trazodone Hcl 50 Mg Tablet) 50 mg PO BEDTIME MRX1 PRN PRN Reason: Insomnia Last Admin: 04/02/24 21:16 Dose: 50 mg Vitamin D (Cholecalciferol (Vitamin D3) 25 Mcg Tablet) 25 mcg PO DAILY [facility] Last Admin: 04/03/24 08:53 Dose: 25 mcg Allergies Allergies Allergy/AdvReac Type Severity Reaction Status Date / Time codeine Allergy Swelling Verified 03/10/24 14:55 Assessment & Plan Assessment & Plan (1) Recurrent major depression-severe: Status: Acute Code(s): F33.2 - Major depressive disorder, recurrent severe without psychotic features (2) PTSD (post-traumatic stress disorder): Status: Acute Code(s): F43.10 - Post-traumatic stress disorder, unspecified Plan PTSD, Recurrent Major Depression, OCD, Anorexia Nervosa,Binge Purge Type, Borderline Personality Disorder, Polysubstance use disorder-alcohol, cannabis, opiates, TBI. Hospital course: 03/05: continue current tx plan. 03/16/24-0ngoing depression with si - and complicating hx tbi and poor reactivity to medications- requires ongoing inpatient level of care 03/17/24 for now will continue current medications. added miralax and senakot for constipation. Consider ECT for severe refractory depression and suicidality. 03/18 continues to report constipation, no vomiting nor abdominal pain. Had head CT- microvascular changes and atrophy. no acute findings. more hopeless and tearful today but willing to get better and continue tx. consider ECT. 03/20/2024: No changes to current plan. 03/21 continue tx. may benefit from med changes, or even ECT, 03/24/24: Olanzapine 2.5 mg bid to address sx of anxiety, augment SSRI's 03/25/24: Continue tx 03/26 Patient initially reports that she is not doing any better however after more discussion and consideration of her behaviors, she agrees that she is feeling a little less depressed and a little less anxious and that she can tell because she is attending to her ADLs, showering, dressing herself well. She also says that she is actually starting to have hope that she will be able to get better. However she reports that her mood continues to fluctuate throughout the day and that SI thoughts come and go. She is afraid of discharge and getting suicidal when she leaves. -Discussed more of her history, symptoms,, trauma, bulimia, childhood experiences, medication trials. Patient says she has been on Prozac for over 30 years but has never really felt much benefit from it, even when it was at 80 mg. 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 She has been on 50 mg b.i.d. for few months. 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 -increasing Luvox 100 mg q.h.s. -leave Prozac at 40 mg; will watch for serotonin syndrome; however if Luvox continues to be effective, may consider tapering and discontinuing Prozac since she says it has never been helpful 03/27 no change in presentation; tolerated increased Luvox; continue current regimen 03/28 continue discussion with pt/brother about guns in mother's home and visitation. 04/01 continue tx, increase luvox, pt is asked to give some consideration over the weekend to coping skills she has learned and can use in community when discharged. 04/03/2024: Continue current regimen and plans. Decrease Prozac to 20 mg Plan: CV, 15 minute checks -Continue Luvox 50 mg daily -INCREASE Luvox to 100mg qhs (patient said this medication has consistently been effective) -Continue Prozac 40 mg for now; patient says this medication has not been effective over the years; will consider tapering if Luvox proves effective enough -Continue current Lamictal dose for now Medical care/consult as needed. Pt has several issues not addressed --Neuro consult-recent falls, balance issues reported --Xrays R Ankle, Hip-reports significant pain Collateral contacts Continue current regime at this time-pt reports several trials-will talk with OP team prior to making changes. Aftercare/Discharge planning Patient educated on: medication risk/benefits Reason for continued inpatient stay Substantial Risk for: med/psych decompensation Time Spent With Patient Time: Total time managing care of this patient today ____ minutes.
[2024-04-03] MEDS: LORazepam 1 MG TABLET PO (19:31)
[2024-04-03 19:52] VITALS: BP 154/72; PULSE 74; RESP 15; TEMP 36; O2SAT 97
[2024-04-03] MEDS: cloNIDine HCL 0.1 MG TABLET PO (21:29)
[2024-04-03] MEDS: traZODone HCL 50 MG TABLET PO (21:29)
[2024-04-03] MEDS: Milk of Magnesia 30 ML ORAL.SUSP PO (21:38)
[2024-04-04] MEDS: Magnesium Hydrox/Alum Hydrox 30 ML ORAL.SUSP PO (02:30)
[2024-04-04] MEDS: Levothyroxine Sodium 88 MCG TABLET PO (06:55)
[2024-04-04] MEDS: Methylphenidate HCl 10 MG TABLET 20 MG PO ×3 (06:55→17:19)
[2024-04-04 08:16] VITALS: BP 97/56; PULSE 63; RESP 16; TEMP 35.9; O2SAT 95
[2024-04-04 08:23] VITALS: BP 119/66; PULSE 71
[2024-04-04] MEDS: NaPROXEN 500 MG TABLET PO ×2 (08:59→20:56)
[2024-04-04] MEDS: polyethylene glycoL 3350 17 GM POWD.PACK PO (08:59)
[2024-04-04] MEDS: OLANZapine 2.5 MG TABLET PO (08:59)
[2024-04-04] MEDS: FLUoxetine HCl 20 MG CAPSULE PO (08:59)
[2024-04-04] MEDS: Sennosides/Docusate Sodium TABLET 1 TAB PO ×2 (08:59→20:55)
[2024-04-04] MEDS: lamoTRIgine 100 MG TABLET PO (08:59)
[2024-04-04] MEDS: Cholecalciferol (Vitamin D3) 25 MCG TABLET PO (08:59)
[2024-04-04] MEDS: Calcium Oyster Shell Elemental 500 MG TABLET PO (08:59)
--- NOTE | 2024-04-04 09:22 | PC.NURSE ---
unable to administer scheduled 9am Luvox as med is unavailable in the pyxis. Pharmacy notified, awaiting stock.
[2024-04-04] MEDS: fluvoxaMINE Maleate 50 MG TABLET 100 MG PO ×2 (11:05→20:55)
[2024-04-04] MEDS: LORazepam 1 MG TABLET PO (11:12)
[2024-04-04] MEDS: OLANZapine 5 MG TABLET PO ×2 (11:12→20:55)
--- NOTE | 2024-04-04 13:14 | P.PNPSI_ITS ---
Subjective Subjective Date of Service: 04/04/24 Reason For Visit: depressed Subjective Notes: Conditional Voluntary Healthcare Proxy: No Guardianship: No Medical Problems Affecting Mental Status: No Interim History: Scheduled call with pt and brother Mahesh [phone]. Pt cried during the call. Discussed issues with brother Meño and his family, not wanting to consider [facility]/Rest Home, wanting guns removed from mother's home (family has decided not to do this and will do supervised visits with pt and mother). Pt spoke of her recent [facility] and spoke of her attempting to heal after an 22 years ago along with her shame of not living her life to the fullest. Discussed her progress with daily structure, attending groups and not feeling prepared to discharge from the hospital at this time. Mahehs was very supportive and offered his mother's and brother's support and love to pt during this time, reminding her they are a family and are here for her. Pt was tired after the call, continued to cry and talked of not wanting a supported living situation, but housing. Will print a housing application for her to work on, however encouraged pt to look at rest home options as she feels she cannot discharge and needs further support which these programs may be willing to help with. Also discussed PHP/Day treatment which pt is not interested in at this time as well. Medication Compliance: Yes Side effects from medications: No Attending Groups: Yes Review of Systems Acute medical concerns: No Medical Review of Systems: unchanged Review of Systems Review of Systems denies Mental Status Exam Mental Status Exam Patient Appearance: Fatigued Patient Orientation: Person, Place, Time and Situation Level of Consciousness: Alert Patient Behavior: Talkative, Cooperative, Anxious, Avoidant, Fatigued, Distractible, Isolative, Good Eye Contact and Crying Mood Description: Depressed, Anxious and Apprehensive Affect Description: Anxious, Flat and Apprehensive Patient Cognition Impaired: No Ability to Follow Directions: Good Speech Pattern: Spontaneous Speech Memory Description: Intact Hallucinations: None Perceptual Disturbances: Depersonalization and Derealization Thought Process: Distracted and Rumination Thought Content: positive for Perseveration and positive for Suicidal Ideation Depressive Symptoms: Thoughts of /Suicide Judgement: Fair Diagnostics Vital Signs (24Hr): Vital Signs - 24 hr 04/03/24 19:52 04/04/24 08:16 04/04/24 08:23 Temperature 96.8 F 96.6 F L Pulse Rate 74 63 71 Respiratory Rate 15 16 Blood Pressure 154/72 H 97/56 L 119/66 Pulse Oximetry 97 95 Oxygen Delivery Method Room Air BMI result Body Mass Index 19.8 Labs 03/10/24 15:48 03/10/24 15:48 Imaging Radiology Impressions: ITS Impressions [facility] X-Ray 03/18/24 15:00 IMPRESSION: Moderate constipation. Electronically signed by: Jass Caldwell MD 03/18/2024 04:38 PM EST RP KUB X-Ray 03/23/24 09:46 IMPRESSION: Mild constipation. Electronically signed by: Jass Caldwell MD 03/24/2024 01:25 PM EST RP Medications Medications Current Medications Acetaminophen (Acetaminophen 325 Mg Tablet) 650 mg PO Q6H PRN PRN Reason: Headache/Pain Mild Scale (1-3) Last Admin: 04/02/24 20:06 Dose: 650 mg Al Hydroxide/Mg Hydroxide (Magnesium Hydrox/Alum Hydrox 30 Ml Oral.Susp) 30 ml PO Q6H PRN PRN Reason: Heartburn/Nausea Last Admin: 04/04/24 02:30 Dose: 30 ml Benzocaine (Throat Lozenge, Medicated Lozenge) 1 lozenge MUCOUS MEM Q2H PRN PRN Reason: Dry Throat Last Admin: 03/23/24 20:18 Dose: 1 lozenge Calcium Carbonate (Calcium Oyster Shell Elemental 500 Mg Tablet) 500 mg PO DAILY [facility] Last Admin: 04/04/24 08:59 Dose: 500 mg Calcium Carbonate (Calcium Carbonate 750 Mg Tab.Chew) 750 mg PO TID PRN PRN Reason: Indigestion Last Admin: 04/02/24 10:36 Dose: 750 mg Clonidine HCl (Clonidine Hcl 0.1 Mg Tablet) 0.1 mg PO Q4H PRN; Protocol PRN Reason: anxiety Last Admin: 04/03/24 21:29 Dose: 0.1 mg Fluoxetine HCl (Fluoxetine Hcl 20 Mg Capsule) 20 mg PO DAILY [facility] Last Admin: 04/04/24 08:59 Dose: 20 mg Fluvoxamine Maleate (Fluvoxamine Maleate 50 Mg Tablet) 100 mg PO BEDTIME [facility] Last Admin: 04/03/24 21:33 Dose: 100 mg Fluvoxamine Maleate (Fluvoxamine Maleate 50 Mg Tablet) 100 mg PO DAILY [facility] Last Admin: 04/04/24 11:05 Dose: 100 mg Hydroxyzine HCl (Hydroxyzine Hcl 25 Mg Tablet) 25 mg PO Q6H PRN PRN Reason: Anxiety Last Admin: 04/01/24 23:07 Dose: 25 mg Lamotrigine (Lamotrigine 100 Mg Tablet) 100 mg PO DAILY [facility] Last Admin: 04/04/24 08:59 Dose: 100 mg Levothyroxine Sodium (Levothyroxine Sodium 88 Mcg Tablet) 88 mcg PO DAILY@0600 [facility] Last Admin: 04/04/24 06:55 Dose: 88 mcg Lorazepam (Lorazepam 1 Mg Tablet) 1 mg PO DAILY PRN PRN Reason: Panic Last Admin: 04/04/24 11:12 Dose: 1 mg Magnesium Hydroxide (Milk Of Magnesia 30 Ml Oral.Susp) 30 ml PO DAILY PRN PRN Reason: Constipation Last Admin: 04/03/24 21:38 Dose: 30 ml Meclizine HCl (Meclizine Hcl 12.5 Mg Tablet) 12.5 mg PO TID PRN PRN Reason: Dizziness Last Admin: 03/16/24 22:15 Dose: 12.5 mg Methylphenidate HCl (Methylphenidate Hcl 10 Mg Tablet) 20 mg PO TID@0700,1100,1500 [facility] Last Admin: 04/04/24 11:05 Dose: 20 mg Naproxen (Naproxen 500 Mg Tablet) 500 mg PO BID [facility] Last Admin: 04/04/24 08:59 Dose: 500 mg Nicotine Polacrilex (Nicotine Polacrilex 2 Mg Gum) 4 mg BUCCAL Q2H PRN PRN Reason: Nicotine Cravings Olanzapine (Olanzapine 5 Mg Tablet) 5 mg PO TID PRN PRN Reason: agitation Last Admin: 04/04/24 11:12 Dose: 5 mg Olanzapine (Olanzapine 5 Mg Tablet) 5 mg PO BID [facility] Polyethylene Glycol (Polyethylene Glycol 3350 17 Gm Powd.Pack) 17 gm PO DAILY [facility] Last Admin: 04/04/24 08:59 Dose: 17 gm Saliva Substitute (Dry Mouth [place] 60 Ml [place]) 1 spray MUCOUS MEM Q2H PRN PRN Reason: dry throat Senna/Docusate Sodium (Sennosides/Docusate Sodium Tablet) 1 tab PO BID [facility] Last Admin: 04/04/24 08:59 Dose: 1 tab Trazodone HCl (Trazodone Hcl 50 Mg Tablet) 50 mg PO BEDTIME MRX1 PRN PRN Reason: Insomnia Last Admin: 04/03/24 21:29 Dose: 50 mg Vitamin D (Cholecalciferol (Vitamin D3) 25 Mcg Tablet) 25 mcg PO DAILY [facility] Last Admin: 04/04/24 08:59 Dose: 25 mcg Allergies Allergies Allergy/AdvReac Type Severity Reaction Status Date / Time codeine Allergy Swelling Verified 03/10/24 14:55 Assessment & Plan Assessment & Plan (1) Recurrent major depression-severe: Status: Acute Code(s): F33.2 - Major depressive disorder, recurrent severe without psychotic features (2) PTSD (post-traumatic stress disorder): Status: Acute Code(s): F43.10 - Post-traumatic stress disorder, unspecified Plan PTSD, Recurrent Major Depression, OCD, Anorexia Nervosa,Binge Purge Type, Borderline Personality Disorder, Polysubstance use disorder-alcohol, cannabis, opiates, TBI. Hospital course: 03/05: continue current tx plan. 03/16/24-0ngoing depression with si - and complicating hx tbi and poor reactivity to medications- requires ongoing inpatient level of care 03/17/24 for now will continue current medications. added miralax and senakot for constipation. Consider ECT for severe refractory depression and suicidality. 03/18 continues to report constipation, no vomiting nor abdominal pain. Had head CT- microvascular changes and atrophy. no acute findings. more hopeless and tearful today but willing to get better and continue tx. consider ECT. 03/20/2024: No changes to current plan. 03/21 continue tx. may benefit from med changes, or even ECT, 03/24/24: Olanzapine 2.5 mg bid to address sx of anxiety, augment SSRI's 03/25/24: Continue tx 03/26 Patient initially reports that she is not doing any better however after more discussion and consideration of her behaviors, she agrees that she is feeling a little less depressed and a little less anxious and that she can tell because she is attending to her ADLs, showering, dressing herself well. She also says that she is actually starting to have hope that she will be able to get better. However she reports that her mood continues to fluctuate throughout the day and that SI thoughts come and go. She is afraid of discharge and getting suicidal when she leaves. -Discussed more of her history, symptoms,, trauma, bulimia, childhood experiences, medication trials. Patient says she has been on Prozac for over 30 years but has never really felt much benefit from it, even when it was at 80 mg. 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 She has been on 50 mg b.i.d. for few months. Carbonator discussed the risk of serotonin syndrome and what to look out for but also discussed increasing this medication to which patient agreed. -increasing Luvox 100 mg q.h.s. -leave Prozac at 40 mg; will watch for serotonin syndrome; however if Luvox continues to be effective, may consider tapering and discontinuing Prozac since she says it has never been helpful 03/27 no change in presentation; tolerated increased Luvox; continue current regimen 03/28 continue discussion with pt/brother about guns in mother's home and visitation. 04/01 continue tx, increase luvox, pt is asked to give some consideration over the weekend to coping skills she has learned and can use in community when discharged. 04/03/2024: Continue current regimen and plans. Decrease Prozac to 20 mg 04/04/24: Increase Olanzapine to 5 mg bid. Plan: CV, 15 minute checks -Continue Luvox 50 mg daily -INCREASE Luvox to 100mg qhs (patient said this medication has consistently been effective) -Continue Prozac 40 mg for now; patient says this medication has not been effective over the years; will consider tapering if Luvox proves effective enough -Continue current Lamictal dose for now Medical care/consult as needed. Pt has several issues not addressed --Neuro consult-recent falls, balance issues reported --Xrays R Ankle, Hip-reports significant pain Collateral contacts Continue current regime at this time-pt reports several trials-will talk with OP team prior to making changes. Aftercare/Discharge planning Reason for continued inpatient stay Substantial Risk for: rapid decompensation Time Spent With Patient Time: Total time managing care of this patient today ____ minutes.
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
[2024-04-04] MEDS: Milk of Magnesia 30 ML ORAL.SUSP PO (16:21)
[2024-04-04 19:42] VITALS: BP 119/62; PULSE 75; TEMP 36.9; O2SAT 95
[2024-04-04] MEDS: hydrOXYzine HCL 25 MG TABLET PO (20:55)
[2024-04-04] MEDS: traZODone HCL 50 MG TABLET PO (20:55)
[2024-04-04 23:41] VITALS: BP 118/72
[2024-04-04] MEDS: cloNIDine HCL 0.1 MG TABLET PO (23:41)
[2024-04-05] MEDS: OLANZapine 5 MG TABLET PO ×4 (00:44→22:16)
--- NOTE | 2024-04-05 06:03 | PC.NURSE ---
Patient c/o diarrhea. Provider notified. Immodium ordered. Administered with positive result.
[2024-04-05] MEDS: Levothyroxine Sodium 88 MCG TABLET PO (06:22)
[2024-04-05] MEDS: Methylphenidate HCl 10 MG TABLET 20 MG PO ×3 (06:22→14:51)
[2024-04-05 08:00] VITALS: BP 111/57; PULSE 68; RESP 16; TEMP 36.4; O2SAT 99
[2024-04-05] MEDS: fluvoxaMINE Maleate 50 MG TABLET 100 MG PO ×2 (09:06→22:17)
[2024-04-05] MEDS: FLUoxetine HCl 20 MG CAPSULE PO (09:06)
[2024-04-05] MEDS: lamoTRIgine 100 MG TABLET PO (09:06)
[2024-04-05] MEDS: NaPROXEN 500 MG TABLET PO ×2 (09:06→22:17)
[2024-04-05] MEDS: Cholecalciferol (Vitamin D3) 25 MCG TABLET PO (09:06)
[2024-04-05] MEDS: Calcium Oyster Shell Elemental 500 MG TABLET PO (09:06)
[2024-04-05] MEDS: LORazepam 1 MG TABLET PO ×2 (10:25→22:18)
--- NOTE | 2024-04-05 10:28 | P.PNPSI_ITS ---
Subjective Subjective Date of Service: 04/05/24 Reason For Visit: depressed Subjective Notes: Conditional Voluntary Interim History: Pt slept through the night. Met with her and DANNIE Maher. She reports doing well here but feeling anxious about discharged. We discussed that she has done well socializing and going to groups and thought of going back home alone may trigger feelings of loneliness and depression. Discussed considering PHP or day program, or other social activities that may help her build more social supports. No SI/HI. She had loose stools, held miralax and senakot. she has prn immodium for loose stools. Medication Compliance: Yes Review of Systems Review of Systems denies Yes all other systems are reviewed and are negative Constitutional: Reports as per HPI Eyes: Reports as per HPI Reports as per HPI Cardiovascular: Reports as per HPI Respiratory: Reports as per HPI Gastrointestinal: Reports as per HPI Musculoskeletal: Reports as per HPI Skin/Breast: Reports as per HPI Reports as per HPI Psychiatric: Reports as per HPI Endocrine: Reports as per HPI Hematologic/Lymphatic: Reports as per HPI Allergic/Immunologic: Reports as per HPI Mental Status Exam Mental Status Exam Narrative: Pt is alert and oriented x 4; behavior is cooperative, friendly and calm, more social; patient is not in distress; dressed in casual attire, wig, improved hygiene; mood is described as anxious about going home soon and affect congruent, intermittently anxious and tearful but still somewhat brighter than on admission; eye contact appropriate; Speech is normal rate, volume and prosody and not pressured; no psychomotor agitation/retardation present; thought process is organized and goal directed; Thought content is on tx; otherwise pertinent to relevant topics and without any delusional content, paranoid ideations or grandiosity; intermittent SI; no HI. Denied AVH and There is no evidence of perceptual disturbance. Patients insight and judgment impaired but improved Patient Orientation: Person, Place, Time and Situation Level of Consciousness: Alert Patient Behavior: Talkative, Cooperative, Anxious, Avoidant, Fatigued, Distractible, Isolative, Good Eye Contact and Crying Mood Description: Depressed, Anxious and Apprehensive Affect Description: Anxious, Flat and Apprehensive Patient Cognition Impaired: No Ability to Follow Directions: Good Speech Pattern: Spontaneous Speech Memory Description: Intact Diagnostics Vital Signs (24Hr): Vital Signs - 24 hr 04/04/24 19:42 04/04/24 23:41 04/05/24 08:00 Temperature 98.4 F 97.5 F Pulse Rate 75 68 Respiratory Rate 16 Blood Pressure 119/62 118/72 111/57 L Pulse Oximetry 95 99 Oxygen Delivery Method Room Air BMI result Body Mass Index 19.8 Labs 03/10/24 15:48 03/10/24 15:48 Imaging Radiology Impressions: ITS Impressions KUB X-Ray 03/18/24 15:00 IMPRESSION: Moderate constipation. Electronically signed by: Jass Caldwell MD 03/18/2024 04:38 PM EST RP KUB X-Ray 03/23/24 09:46 IMPRESSION: Mild constipation. Electronically signed by: Jass Caldwell MD 03/24/2024 01:25 PM EST RP Medications Medications Current Medications Acetaminophen (Acetaminophen 325 Mg Tablet) 650 mg PO Q6H PRN PRN Reason: Headache/Pain Mild Scale (1-3) Last Admin: 04/02/24 20:06 Dose: 650 mg Al Hydroxide/Mg Hydroxide (Magnesium Hydrox/Alum Hydrox 30 Ml Oral.Susp) 30 ml PO Q6H PRN PRN Reason: Heartburn/Nausea Last Admin: 04/04/24 02:30 Dose: 30 ml Benzocaine (Throat Lozenge, Medicated Lozenge) 1 lozenge MUCOUS MEM Q2H PRN PRN Reason: Dry Throat Last Admin: 03/23/24 20:18 Dose: 1 lozenge Calcium Carbonate (Calcium Oyster Shell Elemental 500 Mg Tablet) 500 mg PO DAILY [facility] Last Admin: 04/05/24 09:06 Dose: 500 mg Calcium Carbonate (Calcium Carbonate 750 Mg Tab.Chew) 750 mg PO TID PRN PRN Reason: Indigestion Last Admin: 04/02/24 10:36 Dose: 750 mg Clonidine HCl (Clonidine Hcl 0.1 Mg Tablet) 0.1 mg PO Q4H PRN; Protocol PRN Reason: anxiety Last Admin: 04/04/24 23:41 Dose: 0.1 mg Fluoxetine HCl (Fluoxetine Hcl 20 Mg Capsule) 20 mg PO DAILY [facility] Last Admin: 04/05/24 09:06 Dose: 20 mg Fluvoxamine Maleate (Fluvoxamine Maleate 50 Mg Tablet) 100 mg PO BEDTIME [facility] Last Admin: 04/04/24 20:55 Dose: 100 mg Fluvoxamine Maleate (Fluvoxamine Maleate 50 Mg Tablet) 100 mg PO DAILY [facility] Last Admin: 04/05/24 09:06 Dose: 100 mg Hydroxyzine HCl (Hydroxyzine Hcl 25 Mg Tablet) 25 mg PO Q6H PRN PRN Reason: Anxiety Last Admin: 04/04/24 20:55 Dose: 25 mg Lamotrigine (Lamotrigine 100 Mg Tablet) 100 mg PO DAILY [facility] Last Admin: 04/05/24 09:06 Dose: 100 mg Levothyroxine Sodium (Levothyroxine Sodium 88 Mcg Tablet) 88 mcg PO DAILY@0600 [facility] Last Admin: 04/05/24 06:22 Dose: 88 mcg Loperamide HCl (Loperamide Hcl 2 Mg Capsule) 4 mg PO Q6H PRN PRN Reason: Diarrhea Lorazepam (Lorazepam 1 Mg Tablet) 1 mg PO DAILY PRN PRN Reason: Panic Last Admin: 04/05/24 10:25 Dose: 1 mg Magnesium Hydroxide (Milk Of Magnesia 30 Ml Oral.Susp) 30 ml PO DAILY PRN PRN Reason: Constipation Last Admin: 04/04/24 16:21 Dose: 30 ml Meclizine HCl (Meclizine Hcl 12.5 Mg Tablet) 12.5 mg PO TID PRN PRN Reason: Dizziness Last Admin: 03/16/24 22:15 Dose: 12.5 mg Methylphenidate HCl (Methylphenidate Hcl 10 Mg Tablet) 20 mg PO TID@0700,1100,1500 [facility] Last Admin: 04/05/24 06:22 Dose: 20 mg Naproxen (Naproxen 500 Mg Tablet) 500 mg PO BID [facility] Last Admin: 04/05/24 09:06 Dose: 500 mg Nicotine Polacrilex (Nicotine Polacrilex 2 Mg Gum) 4 mg BUCCAL Q2H PRN PRN Reason: Nicotine Cravings Olanzapine (Olanzapine 5 Mg Tablet) 5 mg PO TID PRN PRN Reason: agitation Last Admin: 04/05/24 00:44 Dose: 5 mg Olanzapine (Olanzapine 5 Mg Tablet) 5 mg PO BID [facility] Last Admin: 04/05/24 09:06 Dose: 5 mg Polyethylene Glycol (Polyethylene Glycol 3350 17 Gm Powd.Pack) 17 gm PO DAILY [facility] Last Admin: 04/05/24 09:08 Dose: Not Given Saliva Substitute (Dry Mouth [place] 60 Ml [place]) 1 spray MUCOUS MEM Q2H PRN PRN Reason: dry throat Senna/Docusate Sodium (Sennosides/Docusate Sodium Tablet) 1 tab PO BID [facility] Last Admin: 04/05/24 09:09 Dose: Not Given Trazodone HCl (Trazodone Hcl 50 Mg Tablet) 50 mg PO BEDTIME MRX1 PRN PRN Reason: Insomnia Last Admin: 04/04/24 20:55 Dose: 50 mg Vitamin D (Cholecalciferol (Vitamin D3) 25 Mcg Tablet) 25 mcg PO DAILY [facility] Last Admin: 04/05/24 09:06 Dose: 25 mcg Allergies Allergies Allergy/AdvReac Type Severity Reaction Status Date / Time codeine Allergy Swelling Verified 03/10/24 14:55 Assessment & Plan Assessment & Plan (1) Recurrent major depression-severe: Qualifiers: Psychotic features: without psychotic features Qualified Code(s): F33.2 - Major depressive disorder, recurrent severe without psychotic features Status: Acute Code(s): F33.2 - Major depressive disorder, recurrent severe without psychotic features (2) PTSD (post-traumatic stress disorder): Status: Acute Code(s): F43.10 - Post-traumatic stress disorder, unspecified Plan PTSD, Recurrent Major Depression, OCD, Anorexia Nervosa,Binge Purge Type, Borderline Personality Disorder, Polysubstance use disorder-alcohol, cannabis, opiates, TBI. Hospital course: 03/05: continue current tx plan. 03/16/24-0ngoing depression with si - and complicating hx tbi and poor reactivity to medications- requires ongoing inpatient level of care 03/17/24 for now will continue current medications. added miralax and senakot for constipation. Consider ECT for severe refractory depression and suicidality. 03/18 continues to report constipation, no vomiting nor abdominal pain. Had head CT- microvascular changes and atrophy. no acute findings. more hopeless and tearful today but willing to get better and continue tx. consider ECT. 03/20/2024: No changes to current plan. 03/21 continue tx. may benefit from med changes, or even ECT, 03/24/24: Olanzapine 2.5 mg bid to address sx of anxiety, augment SSRI's 03/25/24: Continue tx 03/26 Patient initially reports that she is not doing any better however after more discussion and consideration of her behaviors, she agrees that she is feeling a little less depressed and a little less anxious and that she can tell because she is attending to her ADLs, showering, dressing herself well. She also says that she is actually starting to have hope that she will be able to get better. However she reports that her mood continues to fluctuate throughout the day and that SI thoughts come and go. She is afraid of discharge and getting suicidal when she leaves. -Discussed more of her history, symptoms,, trauma, bulimia, childhood experiences, medication trials. Patient says she has been on Prozac for over 30 years but has never really felt much benefit from it, even when it was at 80 mg. However when she was 1st started on Luvox about a year ago, she noticed improvement proposal writer way; noticed further improvement when it was increased. She has been on 50 mg b.i.d. for few months. Annual Greenhouse Manager discussed the risk of serotonin syndrome and what to look out for but also discussed increasing this medication to which patient agreed. -increasing Luvox 100 mg q.h.s. -leave Prozac at 40 mg; will watch for serotonin syndrome; however if Luvox continues to be effective, may consider tapering and discontinuing Prozac since she says it has never been helpful 03/27 no change in presentation; tolerated increased Luvox; continue current regimen 03/28 continue discussion with pt/brother about guns in mother's home and visitation. 04/01 continue tx, increase luvox, pt is asked to give some consideration over the weekend to coping skills she has learned and can use in community when discharged. 04/03/2024: Continue current regimen and plans. Decrease Prozac to 20 mg 04/04/24: Increase Olanzapine to 5 mg bid. 04/05 continue tx. Plan: CV, 15 minute checks -Continue Luvox 50 mg daily -INCREASE Luvox to 100mg qhs (patient said this medication has consistently been effective) -Continue Prozac 40 mg for now; patient says this medication has not been effective over the years; will consider tapering if Luvox proves effective enough -Continue current Lamictal dose for now Medical care/consult as needed. Pt has several issues not addressed --Neuro consult-recent falls, balance issues reported --Xrays R Ankle, Hip-reports significant pain Collateral contacts Continue current regime at this time-pt reports several trials-will talk with OP team prior to making changes. Aftercare/Discharge planning Reason for continued inpatient stay Substantial Risk for: inability to function Time Spent With Patient Time: Total time managing care of this patient today ____ minutes.
[2024-04-05 20:00] VITALS: BP 93/57; PULSE 71; RESP 18; TEMP 36.6; O2SAT 98
[2024-04-05] MEDS: hydrOXYzine HCL 25 MG TABLET PO (22:18)
[2024-04-06] MEDS: Methylphenidate HCl 10 MG TABLET 20 MG PO ×3 (07:01→15:01)
[2024-04-06] MEDS: Levothyroxine Sodium 88 MCG TABLET PO (07:01)
[2024-04-06 07:52] VITALS: BP 118/56; PULSE 59; TEMP 36.9; O2SAT 99
[2024-04-06] MEDS: fluvoxaMINE Maleate 50 MG TABLET 100 MG PO ×2 (09:40→20:28)
[2024-04-06] MEDS: FLUoxetine HCl 20 MG CAPSULE PO (09:43)
[2024-04-06] MEDS: Cholecalciferol (Vitamin D3) 25 MCG TABLET PO (09:44)
[2024-04-06] MEDS: lamoTRIgine 100 MG TABLET PO (09:45)
[2024-04-06] MEDS: NaPROXEN 500 MG TABLET PO ×2 (09:46→20:28)
[2024-04-06] MEDS: Calcium Oyster Shell Elemental 500 MG TABLET PO (09:46)
[2024-04-06] MEDS: OLANZapine 5 MG TABLET PO ×3 (09:47→20:29)
--- NOTE | 2024-04-06 15:14 | HO.PSYCHPN ---
Subjective Subjective Date of Service: 04/06/24 Reason For Visit: depressed Subjective Notes: Conditional Voluntary Healthcare Proxy: No Guardianship: No Medical Problems Affecting Mental Status: No Interim History: Call from pt's brother Mahesh. Weapons have been removed from mother's home. Pt's current presentation has caused significant worry for the family. It has ripped us apart. Mhaesh reports their childhood was hard line . Mom was a teacher, family are [place] immigrants. Upbringing was with expectations. 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 Brothers love their parents, however, pt has told them she hates her mother. Illness patterns are cyclical. Parents did not trust pt, especially father, he did not want Krys at the home due to her behaviors. Pt with a history of addiction-pain meds, chewed Fentanyl patches (dad used them for his bone cancer). Pt would rarely share issues/concerns with family and would not involve them in her treatment. Issues with brother Meño are due to an incident where pt was asked to drive mother to Meño's son's confirmation. Pt self-medicated, was unable to drive. Mother drove and they arrived but missed the ceremony. Meño has not recovered (this ceremony was right after their father had .) Family is concerned about pt discharging. Will keep them updated. Met with pt reviewed this history. Yes, all true . Discussed father hating women, nothing I did was every good enough. Discussed discharge planning and moving forward. Pt will meet with team on 04/07 to begin her planning. Pt feeling not validated, not listened to, wanting more in pt time. Offers these words regarding feelings about discharge-not validated, overwhelmed, helpless, insecure, anxious, stressed, tired, scared, projective Medication Compliance: Yes Side effects from medications: No Attending Groups: Yes Review of Systems Acute medical concerns: No Medical Review of Systems: unchanged Review of Systems Review of Systems Yes all other systems are reviewed and are negative Mental Status Exam Mental Status Exam Patient Appearance: Fatigued Patient Orientation: Person, Place, Time and Situation Level of Consciousness: Alert Patient Behavior: Talkative, Cooperative, Anxious, Avoidant, Fatigued, Distractible, Isolative, Good Eye Contact and Crying Mood Description: Depressed, Anxious and Apprehensive Affect Description: Anxious, Flat and Apprehensive Patient Cognition Impaired: No Ability to Follow Directions: Good Speech Pattern: Spontaneous Speech Memory Description: Intact Hallucinations: None Perceptual Disturbances: Depersonalization and Derealization Thought Process: Distracted and Rumination Thought Content: positive for Perseveration and positive for Suicidal Ideation Depressive Symptoms: Thoughts of /Suicide Judgement: Fair Diagnostics Vital Signs (24Hr): Vital Signs - 24 hr 04/05/24 20:00 04/06/24 07:52 Temperature 97.8 F 98.5 F Pulse Rate 71 59 Respiratory Rate 18 Blood Pressure 93/57 L 118/56 L Pulse Oximetry 98 99 Oxygen Delivery Method Room Air Room Air BMI result Body Mass Index 19.8 Labs 03/10/24 15:48 03/10/24 15:48 Imaging Radiology Impressions: ITS Impressions [facility] X-Ray 03/18/24 15:00 IMPRESSION: Moderate constipation. Electronically signed by: Jass Caldwell MD 03/18/2024 04:38 PM EST RP [facility] X-Ray 03/23/24 09:46 IMPRESSION: Mild constipation. Electronically signed by: Jass Caldwell MD 03/24/2024 01:25 PM EST RP Medications Medications Current Medications Acetaminophen (Acetaminophen 325 Mg Tablet) 650 mg PO Q6H PRN PRN Reason: Headache/Pain Mild Scale (1-3) Last Admin: 04/02/24 20:06 Dose: 650 mg Al Hydroxide/Mg Hydroxide (Magnesium Hydrox/Alum Hydrox 30 Ml Oral.Susp) 30 ml PO Q6H PRN PRN Reason: Heartburn/Nausea Last Admin: 04/04/24 02:30 Dose: 30 ml Benzocaine (Throat Lozenge, Medicated Lozenge) 1 lozenge MUCOUS MEM Q2H PRN PRN Reason: Dry Throat Last Admin: 03/23/24 20:18 Dose: 1 lozenge Calcium Carbonate (Calcium Oyster Shell Elemental 500 Mg Tablet) 500 mg PO DAILY [facility] Last Admin: 04/06/24 09:46 Dose: 500 mg Calcium Carbonate (Calcium Carbonate 750 Mg Tab.Chew) 750 mg PO TID PRN PRN Reason: Indigestion Last Admin: 04/02/24 10:36 Dose: 750 mg Clonidine HCl (Clonidine Hcl 0.1 Mg Tablet) 0.1 mg PO Q4H PRN; Protocol PRN Reason: anxiety Last Admin: 04/04/24 23:41 Dose: 0.1 mg Fluoxetine HCl (Fluoxetine Hcl 20 Mg Capsule) 20 mg PO DAILY [facility] Last Admin: 04/06/24 09:43 Dose: 20 mg Fluvoxamine Maleate (Fluvoxamine Maleate 50 Mg Tablet) 100 mg PO BEDTIME [facility] Last Admin: 04/05/24 22:17 Dose: 100 mg Fluvoxamine Maleate (Fluvoxamine Maleate 50 Mg Tablet) 100 mg PO DAILY [facility] Last Admin: 04/06/24 09:40 Dose: 100 mg Hydroxyzine HCl (Hydroxyzine Hcl 25 Mg Tablet) 25 mg PO Q6H PRN PRN Reason: Anxiety Last Admin: 04/05/24 22:18 Dose: 25 mg Lamotrigine (Lamotrigine 100 Mg Tablet) 100 mg PO DAILY [facility] Last Admin: 04/06/24 09:45 Dose: 100 mg Levothyroxine Sodium (Levothyroxine Sodium 88 Mcg Tablet) 88 mcg PO DAILY@0600 [facility] Last Admin: 04/06/24 07:01 Dose: 88 mcg Loperamide HCl (Loperamide Hcl 2 Mg Capsule) 4 mg PO Q6H PRN PRN Reason: Diarrhea Lorazepam (Lorazepam 1 Mg Tablet) 1 mg PO DAILY PRN PRN Reason: Panic Last Admin: 04/05/24 22:18 Dose: 1 mg Magnesium Hydroxide (Milk Of Magnesia 30 Ml Oral.Susp) 30 ml PO DAILY PRN PRN Reason: Constipation Last Admin: 04/04/24 16:21 Dose: 30 ml Meclizine HCl (Meclizine Hcl 12.5 Mg Tablet) 12.5 mg PO TID PRN PRN Reason: Dizziness Last Admin: 03/16/24 22:15 Dose: 12.5 mg Methylphenidate HCl (Methylphenidate Hcl 10 Mg Tablet) 20 mg PO TID@0700,1100,1500 [facility] Last Admin: 04/06/24 15:01 Dose: 20 mg Naproxen (Naproxen 500 Mg Tablet) 500 mg PO BID [facility] Last Admin: 04/06/24 09:46 Dose: 500 mg Nicotine Polacrilex (Nicotine Polacrilex 2 Mg Gum) 4 mg BUCCAL Q2H PRN PRN Reason: Nicotine Cravings Olanzapine (Olanzapine 5 Mg Tablet) 5 mg PO TID PRN PRN Reason: agitation Last Admin: 04/05/24 19:00 Dose: 5 mg Olanzapine (Olanzapine 5 Mg Tablet) 5 mg PO BID [facility] Last Admin: 04/06/24 09:47 Dose: 5 mg Polyethylene Glycol (Polyethylene Glycol 3350 17 Gm Powd.Pack) 17 gm PO DAILY [facility] Last Admin: 04/05/24 09:08 Dose: Not Given Saliva Substitute (Dry Mouth [place] 60 Ml [place]) 1 spray MUCOUS MEM Q2H PRN PRN Reason: dry throat Senna/Docusate Sodium (Sennosides/Docusate Sodium Tablet) 1 tab PO BID [facility] Last Admin: 04/05/24 09:09 Dose: Not Given Trazodone HCl (Trazodone Hcl 50 Mg Tablet) 50 mg PO BEDTIME MRX1 PRN PRN Reason: Insomnia Last Admin: 04/04/24 20:55 Dose: 50 mg Vitamin D (Cholecalciferol (Vitamin D3) 25 Mcg Tablet) 25 mcg PO DAILY [facility] Last Admin: 04/06/24 09:44 Dose: 25 mcg Allergies Allergies Allergy/AdvReac Type Severity Reaction Status Date / Time codeine Allergy Swelling Verified 03/10/24 14:55 Assessment & Plan Assessment & Plan (1) Recurrent major depression-severe: Qualifiers: Psychotic features: without psychotic features Qualified Code(s): F33.2 - Major depressive disorder, recurrent severe without psychotic features Status: Acute Code(s): F33.2 - Major depressive disorder, recurrent severe without psychotic features (2) PTSD (post-traumatic stress disorder): Status: Acute Code(s): F43.10 - Post-traumatic stress disorder, unspecified Plan PTSD, Recurrent Major Depression, OCD, Anorexia Nervosa,Binge Purge Type, Borderline Personality Disorder, Polysubstance use disorder-alcohol, cannabis, opiates, TBI. Hospital course: 03/05: continue current tx plan. 03/16/24-0ngoing depression with si - and complicating hx tbi and poor reactivity to medications- requires ongoing inpatient level of care 03/17/24 for now will continue current medications. added miralax and senakot for constipation. Consider ECT for severe refractory depression and suicidality. 1 continues to report constipation, no vomiting nor abdominal pain. Had head CT- microvascular changes and atrophy. no acute findings. more hopeless and tearful today but willing to get better and continue tx. consider ECT. 03/20/2024: No changes to current plan. 03/21 continue tx. may benefit from med changes, or even ECT, 03/24/24: Olanzapine 2.5 mg bid to address sx of anxiety, augment SSRI's 03/25/24: Continue tx 03/26 Patient initially reports that she is not doing any better however after more discussion and consideration of her behaviors, she agrees that she is feeling a little less depressed and a little less anxious and that she can tell because she is attending to her ADLs, showering, dressing herself well. She also says that she is actually starting to have hope that she will be able to get better. However she reports that her mood continues to fluctuate throughout the day and that SI thoughts come and go. She is afraid of discharge and getting suicidal when she leaves. -Discussed more of her history, symptoms,, trauma, bulimia, childhood experiences, medication trials. Patient says she has been on Prozac for over 30 years but has never really felt much benefit from it, even when it was at 80 mg. 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 She has been on 50 mg b.i.d. for few months. Health Benefits Specialist discussed the risk of serotonin syndrome and what to look out for but also discussed increasing this medication to which patient agreed. -increasing Luvox 100 mg q.h.s. -leave Prozac at 40 mg; will watch for serotonin syndrome; however if Luvox continues to be effective, may consider tapering and discontinuing Prozac since she says it has never been helpful 03/27 no change in presentation; tolerated increased Luvox; continue current regimen 03/28 continue discussion with pt/brother about guns in mother's home and visitation. 04/01 continue tx, increase luvox, pt is asked to give some consideration over the weekend to coping skills she has learned and can use in community when discharged. 04/03/2024: Continue current regimen and plans. Decrease Prozac to 20 mg 04/04/24: Increase Olanzapine to 5 mg bid. 04/05 continue tx. 04/06 continue tx Plan: CV, 15 minute checks -Continue Luvox 50 mg daily -INCREASE Luvox to 100mg qhs (patient said this medication has consistently been effective) -Continue Prozac 40 mg for now; patient says this medication has not been effective over the years; will consider tapering if Luvox proves effective enough -Continue current Lamictal dose for now Medical care/consult as needed. Pt has several issues not addressed --Neuro consult-recent falls, balance issues reported --Xrays R Ankle, Hip-reports significant pain Collateral contacts Continue current regime at this time-pt reports several trials-will talk with OP team prior to making changes. Aftercare/Discharge planning Reason for continued inpatient stay Substantial Risk for: rapid decompensation Time Spent With Patient Time: Total time managing care of this patient today ____ minutes.
[2024-04-06 19:33] VITALS: BP 126/88; PULSE 72; TEMP 36.8; O2SAT 97
[2024-04-06] MEDS: traZODone HCL 50 MG TABLET PO (20:29)
[2024-04-06] MEDS: hydrOXYzine HCL 25 MG TABLET PO (20:29)
[2024-04-06] MEDS: LORazepam 1 MG TABLET PO (20:54)
[2024-04-07] MEDS: Methylphenidate HCl 10 MG TABLET 20 MG PO ×3 (06:25→14:43)
[2024-04-07] MEDS: Levothyroxine Sodium 88 MCG TABLET PO (06:25)
[2024-04-07 07:00] VITALS: BMI 21.4
[2024-04-07 07:56] VITALS: BP 118/67; PULSE 74; RESP 16; TEMP 36.9; O2SAT 98
[2024-04-07] MEDS: NaPROXEN 500 MG TABLET PO ×2 (08:22→20:52)
[2024-04-07] MEDS: OLANZapine 5 MG TABLET PO ×2 (08:22→20:52)
[2024-04-07] MEDS: Calcium Oyster Shell Elemental 500 MG TABLET PO (08:22)
[2024-04-07] MEDS: fluvoxaMINE Maleate 50 MG TABLET 100 MG PO ×2 (08:23→20:53)
[2024-04-07] MEDS: lamoTRIgine 100 MG TABLET PO (08:23)
[2024-04-07] MEDS: FLUoxetine HCl 20 MG CAPSULE PO (08:23)
[2024-04-07] MEDS: Cholecalciferol (Vitamin D3) 25 MCG TABLET PO (08:23)
--- NOTE | 2024-04-07 11:01 | HO.PSYCHPN ---
Subjective Subjective Date of Service: 04/07/24 Reason For Visit: depressed Subjective Notes: Conditional Voluntary Healthcare Proxy: No Guardianship: No Medical Problems Affecting Mental Status: No Interim History: Pt reports medications are effective, tolerating Olanzapine. Participating in groups Met with her community mental health social worker and she is working on structuring her time Medication Compliance: Yes Side effects from medications: No Attending Groups: Yes Review of Systems Acute medical concerns: No Medical Review of Systems: unchanged Review of Systems Review of Systems denies Mental Status Exam Mental Status Exam Patient Appearance: Fatigued Patient Orientation: Person, Place, Time and Situation Level of Consciousness: Alert Patient Behavior: Talkative, Cooperative, Anxious, Distractible, Isolative and Good Eye Contact Mood Description: Depressed, Anxious and Apprehensive Affect Description: Anxious, Flat and Apprehensive Patient Cognition Impaired: No Ability to Follow Directions: Good Speech Pattern: Spontaneous Speech Memory Description: Intact Hallucinations: None Perceptual Disturbances: Depersonalization and Derealization Thought Process: Distracted and Rumination Thought Content: positive for Perseveration and positive for Suicidal Ideation Depressive Symptoms: Thoughts of /Suicide Judgement: Fair Diagnostics Vital Signs (24Hr): Vital Signs - 24 hr 04/06/24 19:33 04/07/24 07:56 Temperature 98.2 F 98.4 F Pulse Rate 72 74 Respiratory Rate 16 Blood Pressure 126/88 118/67 Pulse Oximetry 97 98 Oxygen Delivery Method Room Air Room Air BMI result Body Mass Index 19.8 Labs 03/10/24 15:48 03/10/24 15:48 Imaging Radiology Impressions: ITS Impressions [facility] X-Ray 03/18/24 15:00 IMPRESSION: Moderate constipation. Electronically signed by: Jass Caldwell MD 03/18/2024 04:38 PM EST RP [facility] X-Ray 03/23/24 09:46 IMPRESSION: Mild constipation. Electronically signed by: Jass Caldwell MD 03/24/2024 01:25 PM EST RP Medications Medications Current Medications Acetaminophen (Acetaminophen 325 Mg Tablet) 650 mg PO Q6H PRN PRN Reason: Headache/Pain Mild Scale (1-3) Last Admin: 04/02/24 20:06 Dose: 650 mg Al Hydroxide/Mg Hydroxide (Magnesium Hydrox/Alum Hydrox 30 Ml Oral.Susp) 30 ml PO Q6H PRN PRN Reason: Heartburn/Nausea Last Admin: 04/04/24 02:30 Dose: 30 ml Benzocaine (Throat Lozenge, Medicated Lozenge) 1 lozenge MUCOUS MEM Q2H PRN PRN Reason: Dry Throat Last Admin: 03/23/24 20:18 Dose: 1 lozenge Calcium Carbonate (Calcium Oyster Shell Elemental 500 Mg Tablet) 500 mg PO DAILY [facility] Last Admin: 04/07/24 08:22 Dose: 500 mg Calcium Carbonate (Calcium Carbonate 750 Mg Tab.Chew) 750 mg PO TID PRN PRN Reason: Indigestion Last Admin: 04/02/24 10:36 Dose: 750 mg Clonidine HCl (Clonidine Hcl 0.1 Mg Tablet) 0.1 mg PO Q4H PRN; Protocol PRN Reason: anxiety Last Admin: 04/04/24 23:41 Dose: 0.1 mg Fluoxetine HCl (Fluoxetine Hcl 20 Mg Capsule) 20 mg PO DAILY [facility] Last Admin: 04/07/24 08:23 Dose: 20 mg Fluvoxamine Maleate (Fluvoxamine Maleate 50 Mg Tablet) 100 mg PO BEDTIME [facility] Last Admin: 04/06/24 20:28 Dose: 100 mg Fluvoxamine Maleate (Fluvoxamine Maleate 50 Mg Tablet) 100 mg PO DAILY [facility] Last Admin: 04/07/24 08:23 Dose: 100 mg Hydroxyzine HCl (Hydroxyzine Hcl 25 Mg Tablet) 25 mg PO Q6H PRN PRN Reason: Anxiety Last Admin: 04/06/24 20:29 Dose: 25 mg Lamotrigine (Lamotrigine 100 Mg Tablet) 100 mg PO DAILY [facility] Last Admin: 04/07/24 08:23 Dose: 100 mg Levothyroxine Sodium (Levothyroxine Sodium 88 Mcg Tablet) 88 mcg PO DAILY@0600 [facility] Last Admin: 04/07/24 06:25 Dose: 88 mcg Loperamide HCl (Loperamide Hcl 2 Mg Capsule) 4 mg PO Q6H PRN PRN Reason: Diarrhea Lorazepam (Lorazepam 1 Mg Tablet) 1 mg PO DAILY PRN PRN Reason: Panic Last Admin: 04/06/24 20:54 Dose: 1 mg Magnesium Hydroxide (Milk Of Magnesia 30 Ml Oral.Susp) 30 ml PO DAILY PRN PRN Reason: Constipation Last Admin: 04/04/24 16:21 Dose: 30 ml Meclizine HCl (Meclizine Hcl 12.5 Mg Tablet) 12.5 mg PO TID PRN PRN Reason: Dizziness Last Admin: 03/16/24 22:15 Dose: 12.5 mg Methylphenidate HCl (Methylphenidate Hcl 10 Mg Tablet) 20 mg PO TID@0700,1100,1500 [facility] Last Admin: 04/07/24 10:33 Dose: 20 mg Naproxen (Naproxen 500 Mg Tablet) 500 mg PO BID [facility] Last Admin: 04/07/24 08:22 Dose: 500 mg Nicotine Polacrilex (Nicotine Polacrilex 2 Mg Gum) 4 mg BUCCAL Q2H PRN PRN Reason: Nicotine Cravings Olanzapine (Olanzapine 5 Mg Tablet) 5 mg PO TID PRN PRN Reason: agitation Last Admin: 04/06/24 18:13 Dose: 5 mg Olanzapine (Olanzapine 5 Mg Tablet) 5 mg PO BID [facility] Last Admin: 04/07/24 08:22 Dose: 5 mg Polyethylene Glycol (Polyethylene Glycol 3350 17 Gm Powd.Pack) 17 gm PO DAILY [facility] Last Admin: 04/05/24 09:08 Dose: Not Given Saliva Substitute (Dry Mouth [place] 60 Ml [place]) 1 spray MUCOUS MEM Q2H PRN PRN Reason: dry throat Senna/Docusate Sodium (Sennosides/Docusate Sodium Tablet) 1 tab PO BID [facility] Last Admin: 04/05/24 09:09 Dose: Not Given Trazodone HCl (Trazodone Hcl 50 Mg Tablet) 50 mg PO BEDTIME MRX1 PRN PRN Reason: Insomnia Last Admin: 04/06/24 20:29 Dose: 50 mg Vitamin D (Cholecalciferol (Vitamin D3) 25 Mcg Tablet) 25 mcg PO DAILY [facility] Last Admin: 04/07/24 08:23 Dose: 25 mcg Allergies Allergies Allergy/AdvReac Type Severity Reaction Status Date / Time codeine Allergy Swelling Verified 03/10/24 14:55 Assessment & Plan Assessment & Plan (1) Recurrent major depression-severe: Qualifiers: Psychotic features: without psychotic features Qualified Code(s): F33.2 - Major depressive disorder, recurrent severe without psychotic features Status: Acute Code(s): F33.2 - Major depressive disorder, recurrent severe without psychotic features (2) PTSD (post-traumatic stress disorder): Status: Acute Code(s): F43.10 - Post-traumatic stress disorder, unspecified Plan PTSD, Recurrent Major Depression, OCD, Anorexia Nervosa,Binge Purge Type, Borderline Personality Disorder, Polysubstance use disorder-alcohol, cannabis, opiates, TBI. Hospital course: 03/05: continue current tx plan. 03/16/24-0ngoing depression with si - and complicating hx tbi and poor reactivity to medications- requires ongoing inpatient level of care 03/17/24 for now will continue current medications. added miralax and senakot for constipation. Consider ECT for severe refractory depression and suicidality. 03/18 continues to report constipation, no vomiting nor abdominal pain. Had head CT- microvascular changes and atrophy. no acute findings. more hopeless and tearful today but willing to get better and continue tx. consider ECT. 03/20/2024: No changes to current plan. 03/21 continue tx. may benefit from med changes, or even ECT, 03/24/24: Olanzapine 2.5 mg bid to address sx of anxiety, augment SSRI's 03/25/24: Continue tx 03/26 Patient initially reports that she is not doing any better however after more discussion and consideration of her behaviors, she agrees that she is feeling a little less depressed and a little less anxious and that she can tell because she is attending to her ADLs, showering, dressing herself well. She also says that she is actually starting to have hope that she will be able to get better. However she reports that her mood continues to fluctuate throughout the day and that SI thoughts come and go. She is afraid of discharge and getting suicidal when she leaves. -Discussed more of her history, symptoms,, trauma, bulimia, childhood experiences, medication trials. Patient says she has been on Prozac for over 30 years but has never really felt much benefit from it, even when it was at 80 mg. 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 She has been on 50 mg b.i.d. for few months. Vineyardist discussed the risk of serotonin syndrome and what to look out for but also discussed increasing this medication to which patient agreed. -increasing Luvox 100 mg q.h.s. -leave Prozac at 40 mg; will watch for serotonin syndrome; however if Luvox continues to be effective, may consider tapering and discontinuing Prozac since she says it has never been helpful 03/27 no change in presentation; tolerated increased Luvox; continue current regimen 03/28 continue discussion with pt/brother about guns in mother's home and visitation. 04/01 continue tx, increase luvox, pt is asked to give some consideration over the weekend to coping skills she has learned and can use in community when discharged. 04/03/2024: Continue current regimen and plans. Decrease Prozac to 20 mg 04/04/24: Increase Olanzapine to 5 mg bid. 04/05 continue tx. 04/07 continue current plan Plan: CV, 15 minute checks -Continue Luvox 50 mg daily -INCREASE Luvox to 100mg qhs (patient said this medication has consistently been effective) -Continue Prozac 40 mg for now; patient says this medication has not been effective over the years; will consider tapering if Luvox proves effective enough -Continue current Lamictal dose for now Medical care/consult as needed. Pt has several issues not addressed --Neuro consult-recent falls, balance issues reported --Xrays R Ankle, Hip-reports significant pain Collateral contacts Continue current regime at this time-pt reports several trials-will talk with OP team prior to making changes. Aftercare/Discharge planning Reason for continued inpatient stay Substantial Risk for: rapid decompensation Time Spent With Patient Time: Total time managing care of this patient today ____ minutes.
[2024-04-07] MEDS: LORazepam 1 MG TABLET PO (11:18)
[2024-04-07 18:47] VITALS: BP 105/64; PULSE 78; RESP 20; TEMP 36.7; O2SAT 99
[2024-04-07 20:00] VITALS: BP 105/69; PULSE 76; RESP 14; TEMP 36.4; O2SAT 99
[2024-04-07] MEDS: traZODone HCL 50 MG TABLET PO (20:52)
[2024-04-08] MEDS: OLANZapine 5 MG TABLET PO ×4 (06:19→20:56)
[2024-04-08] MEDS: Levothyroxine Sodium 88 MCG TABLET PO (06:19)
[2024-04-08] MEDS: Methylphenidate HCl 10 MG TABLET 20 MG PO ×3 (07:11→15:03)
[2024-04-08 08:11] VITALS: BP 110/68; PULSE 64; TEMP 36.8; O2SAT 98
[2024-04-08] MEDS: Calcium Oyster Shell Elemental 500 MG TABLET PO (09:55)
[2024-04-08] MEDS: Cholecalciferol (Vitamin D3) 25 MCG TABLET PO (09:55)
[2024-04-08] MEDS: fluvoxaMINE Maleate 50 MG TABLET 100 MG PO ×2 (09:56→20:56)
[2024-04-08] MEDS: FLUoxetine HCl 20 MG CAPSULE PO (09:57)
[2024-04-08] MEDS: NaPROXEN 500 MG TABLET PO ×2 (09:57→20:56)
[2024-04-08] MEDS: lamoTRIgine 100 MG TABLET PO (09:58)
--- NOTE | 2024-04-08 16:11 | HO.PSYCHPN ---
Subjective Subjective Date of Service: 04/08/24 Reason For Visit: depressed Subjective Notes: Conditional Voluntary Healthcare Proxy: No Guardianship: No Medical Problems Affecting Mental Status: No Interim History: Reports awakening this a.m. feeling anxious, angry. Took prn Olanzapine and was able to feel a positive difference, able to feel calmer, less pressure, less anger, less anxiety. Continues to work on daily structure. Tells team she is not interested in partial hospital programs or a rest home. Medication Compliance: Yes Side effects from medications: No Attending Groups: Yes Review of Systems Acute medical concerns: No Medical Review of Systems: unchanged Review of Systems Review of Systems Denies Mental Status Exam Mental Status Exam Patient Appearance: Appropriate Patient Orientation: Person, Place, Time and Situation Level of Consciousness: Alert Patient Behavior: Talkative, Cooperative and Good Eye Contact Mood Description: Depressed and Anxious Affect Description: Anxious and Flat Patient Cognition Impaired: No Ability to Follow Directions: Good Speech Pattern: Spontaneous Speech Memory Description: Intact Hallucinations: None Perceptual Disturbances: Depersonalization and Derealization Thought Process: Distracted and Rumination Thought Content: positive for Perseveration and positive for Suicidal Ideation Depressive Symptoms: Thoughts of /Suicide Judgement: Fair Diagnostics Vital Signs (24Hr): Vital Signs - 24 hr 04/07/24 18:47 04/07/24 20:00 04/08/24 08:11 Temperature 98.1 F 97.5 F 98.2 F Pulse Rate 78 76 64 Respiratory Rate 20 14 Blood Pressure 105/64 105/69 110/68 Pulse Oximetry 99 99 98 Oxygen Delivery Method Room Air Room Air Room Air BMI result Body Mass Index 21.4 Labs 03/10/24 15:48 03/10/24 15:48 Imaging Radiology Impressions: ITS Impressions KUB X-Ray 03/18/24 15:00 IMPRESSION: Moderate constipation. Electronically signed by: Jass Caldwell MD 03/18/2024 04:38 PM EST RP KUB X-Ray 03/23/24 09:46 IMPRESSION: Mild constipation. Electronically signed by: Jass Caldwell MD 03/24/2024 01:25 PM EST RP Medications Medications Current Medications Acetaminophen (Acetaminophen 325 Mg Tablet) 325 mg PO Q6H PRN PRN Reason: Pain, Mild (Pain Scale 1-3) Acetaminophen (Acetaminophen 325 Mg Tablet) 650 mg PO Q6H PRN PRN Reason: Pain, Moderate(Pain Scale 4-6) Al Hydroxide/Mg Hydroxide (Magnesium Hydrox/Alum Hydrox 30 Ml Oral.Susp) 30 ml PO Q6H PRN PRN Reason: Heartburn/Nausea Last Admin: 04/04/24 02:30 Dose: 30 ml Benzocaine (Throat Lozenge, Medicated Lozenge) 1 lozenge MUCOUS MEM Q2H PRN PRN Reason: Dry Throat Last Admin: 03/23/24 20:18 Dose: 1 lozenge Calcium Carbonate (Calcium Oyster Shell Elemental 500 Mg Tablet) 500 mg PO DAILY [facility] Last Admin: 04/08/24 09:55 Dose: 500 mg Calcium Carbonate (Calcium Carbonate 750 Mg Tab.Chew) 750 mg PO TID PRN PRN Reason: Indigestion Last Admin: 04/02/24 10:36 Dose: 750 mg Clonidine HCl (Clonidine Hcl 0.1 Mg Tablet) 0.1 mg PO DAILY PRN; Protocol PRN Reason: anxiety-severe Fluoxetine HCl (Fluoxetine Hcl 20 Mg Capsule) 20 mg PO DAILY [facility] Last Admin: 04/08/24 09:57 Dose: 20 mg Fluvoxamine Maleate (Fluvoxamine Maleate 50 Mg Tablet) 100 mg PO BEDTIME [facility] Last Admin: 04/07/24 20:53 Dose: 100 mg Fluvoxamine Maleate (Fluvoxamine Maleate 50 Mg Tablet) 100 mg PO DAILY [facility] Last Admin: 04/08/24 09:56 Dose: 100 mg Hydroxyzine HCl (Hydroxyzine Hcl 25 Mg Tablet) 25 mg PO Q6H PRN PRN Reason: anxiety mild Hydroxyzine HCl (Hydroxyzine Hcl 50 Mg Tablet) 50 mg PO Q6H PRN PRN Reason: anxiety moderate Ibuprofen (Ibuprofen 600 Mg Tablet) 600 mg PO Q6H PRN PRN Reason: Pain, Severe (Pain Scale 7-10) Lamotrigine (Lamotrigine 100 Mg Tablet) 100 mg PO DAILY [facility] Last Admin: 04/08/24 09:58 Dose: 100 mg Levothyroxine Sodium (Levothyroxine Sodium 88 Mcg Tablet) 88 mcg PO DAILY@0600 [facility] Last Admin: 04/08/24 06:19 Dose: 88 mcg Loperamide HCl (Loperamide Hcl 2 Mg Capsule) 4 mg PO Q6H PRN PRN Reason: Diarrhea Magnesium Hydroxide (Milk Of Magnesia 30 Ml Oral.Susp) 30 ml PO DAILY PRN PRN Reason: Constipation Last Admin: 04/04/24 16:21 Dose: 30 ml Meclizine HCl (Meclizine Hcl 12.5 Mg Tablet) 12.5 mg PO TID PRN PRN Reason: Dizziness Last Admin: 03/16/24 22:15 Dose: 12.5 mg Methylphenidate HCl (Methylphenidate Hcl 10 Mg Tablet) 20 mg PO TID@0700,1100,1500 [facility] Last Admin: 04/08/24 15:03 Dose: 20 mg Naproxen (Naproxen 500 Mg Tablet) 500 mg PO BID [facility] Last Admin: 04/08/24 09:57 Dose: 500 mg Nicotine Polacrilex (Nicotine Polacrilex 2 Mg Gum) 4 mg BUCCAL Q2H PRN PRN Reason: Nicotine Cravings Olanzapine (Olanzapine 5 Mg Tablet) 5 mg PO TID PRN PRN Reason: agitation Last Admin: 04/08/24 06:19 Dose: 5 mg Olanzapine (Olanzapine 5 Mg Tablet) 5 mg PO BID [facility] Last Admin: 04/08/24 09:59 Dose: 5 mg Polyethylene Glycol (Polyethylene Glycol 3350 17 Gm Powd.Pack) 17 gm PO DAILY [facility] Last Admin: 04/05/24 09:08 Dose: Not Given Saliva Substitute (Dry Mouth Baxter 60 Ml Baxter) 1 spray MUCOUS MEM Q2H PRN PRN Reason: dry throat Senna/Docusate Sodium (Sennosides/Docusate Sodium Tablet) 1 tab PO BID [facility] Last Admin: 04/05/24 09:09 Dose: Not Given Trazodone HCl (Trazodone Hcl 50 Mg Tablet) 50 mg PO BEDTIME MRX1 PRN PRN Reason: Insomnia Last Admin: 04/07/24 20:52 Dose: 50 mg Vitamin D (Cholecalciferol (Vitamin D3) 25 Mcg Tablet) 25 mcg PO DAILY [facility] Last Admin: 04/08/24 09:55 Dose: 25 mcg Allergies Allergies Allergy/AdvReac Type Severity Reaction Status Date / Time codeine Allergy Swelling Verified 03/10/24 14:55 Assessment & Plan Assessment & Plan (1) Recurrent major depression-severe: Qualifiers: Psychotic features: without psychotic features Qualified Code(s): F33.2 - Major depressive disorder, recurrent severe without psychotic features Status: Acute Code(s): F33.2 - Major depressive disorder, recurrent severe without psychotic features (2) PTSD (post-traumatic stress disorder): Status: Acute Code(s): F43.10 - Post-traumatic stress disorder, unspecified Plan PTSD, Recurrent Major Depression, OCD, Anorexia Nervosa,Binge Purge Type, Borderline Personality Disorder, Polysubstance use disorder-alcohol, cannabis, opiates, TBI. Hospital course: 03/05: continue current tx plan. 03/16/24-0ngoing depression with si - and complicating hx tbi and poor reactivity to medications- requires ongoing inpatient level of care 03/17/24 for now will continue current medications. added miralax and senakot for constipation. Consider ECT for severe refractory depression and suicidality. 03/18 continues to report constipation, no vomiting nor abdominal pain. Had head CT- microvascular changes and atrophy. no acute findings. more hopeless and tearful today but willing to get better and continue tx. consider ECT. 03/20/2024: No changes to current plan. 03/21 continue tx. may benefit from med changes, or even ECT, 03/24/24: Olanzapine 2.5 mg bid to address sx of anxiety, augment SSRI's 03/25/24: Continue tx 03/26 Patient initially reports that she is not doing any better however after more discussion and consideration of her behaviors, she agrees that she is feeling a little less depressed and a little less anxious and that she can tell because she is attending to her ADLs, showering, dressing herself well. She also says that she is actually starting to have hope that she will be able to get better. However she reports that her mood continues to fluctuate throughout the day and that SI thoughts come and go. She is afraid of discharge and getting suicidal when she leaves. -Discussed more of her history, symptoms,, trauma, bulimia, childhood experiences, medication trials. Patient says she has been on Prozac for over 30 years but has never really felt much benefit from it, even when it was at 80 mg. 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 She has been on 50 mg b.i.d. for few months. Nursing Unit Coordinator discussed the risk of serotonin syndrome and what to look out for but also discussed increasing this medication to which patient agreed. -increasing Luvox 100 mg q.h.s. -leave Prozac at 40 mg; will watch for serotonin syndrome; however if Luvox continues to be effective, may consider tapering and discontinuing Prozac since she says it has never been helpful 03/27 no change in presentation; tolerated increased Luvox; continue current regimen 03/28 continue discussion with pt/brother about guns in mother's home and visitation. 04/01 continue tx, increase luvox, pt is asked to give some consideration over the weekend to coping skills she has learned and can use in community when discharged. 04/03/2024: Continue current regimen and plans. Decrease Prozac to 20 mg 04/04/24: Increase Olanzapine to 5 mg bid. 04/05 continue tx. 04/06 continue tx 04/08 Continue regime/plan Plan: CV, 15 minute checks -Continue Luvox 50 mg daily -INCREASE Luvox to 100mg qhs (patient said this medication has consistently been effective) -Continue Prozac 40 mg for now; patient says this medication has not been effective over the years; will consider tapering if Luvox proves effective enough -Continue current Lamictal dose for now Medical care/consult as needed. Pt has several issues not addressed --Neuro consult-recent falls, balance issues reported --Xrays R Ankle, Hip-reports significant pain Collateral contacts Continue current regime at this time-pt reports several trials-will talk with OP team prior to making changes. Aftercare/Discharge planning Reason for continued inpatient stay Substantial Risk for: rapid decompensation Time Spent With Patient Time: Total time managing care of this patient today ____ minutes.
[2024-04-08 20:00] VITALS: BP 129/76; PULSE 74; TEMP 36.6; O2SAT 98
[2024-04-08] MEDS: traZODone HCL 50 MG TABLET PO ×2 (20:56→22:00)
[2024-04-08 21:59] VITALS: BP 127/69
[2024-04-08] MEDS: cloNIDine HCL 0.1 MG TABLET PO (21:59)
[2024-04-09] MEDS: OLANZapine 5 MG TABLET PO ×4 (00:37→20:34)
[2024-04-09] MEDS: hydrOXYzine HCL 50 MG TABLET PO (00:37)
[2024-04-09] MEDS: LORazepam 0.5 MG TABLET PO ×2 (01:06→20:34)
--- NOTE | 2024-04-09 05:51 | P.PNPSI_ITS ---
Subjective Subjective Date of Service: 04/09/24 Reason For Visit: depressed Subjective Notes: Conditional Voluntary Healthcare Proxy: No Guardianship: No Medical Problems Affecting Mental Status: No Interim History: Pt seen, discussed with team. Engaged in milieu, working on art, reviewing coping skills, asking questions about handouts and engaging with her peers Denies current med SE Medication Compliance: Yes Side effects from medications: No Attending Groups: Yes Review of Systems Acute medical concerns: No Medical Review of Systems: unchanged Review of Systems Review of Systems Denies Mental Status Exam Mental Status Exam Patient Appearance: Appropriate Patient Orientation: Person, Place, Time and Situation Level of Consciousness: Alert Patient Behavior: Talkative, Cooperative and Good Eye Contact Mood Description: Depressed and Anxious Affect Description: Anxious and Flat Patient Cognition Impaired: No Ability to Follow Directions: Good Speech Pattern: Spontaneous Speech Memory Description: Intact Hallucinations: None Perceptual Disturbances: Depersonalization and Derealization Thought Process: Distracted and Rumination Thought Content: positive for Perseveration and positive for Suicidal Ideation Depressive Symptoms: Thoughts of /Suicide Judgement: Fair Diagnostics Vital Signs (24Hr): Vital Signs - 24 hr 04/08/24 08:11 04/08/24 20:00 04/08/24 21:59 Temperature 98.2 F 97.8 F Pulse Rate 64 74 Blood Pressure 110/68 129/76 127/69 Pulse Oximetry 98 98 Oxygen Delivery Method Room Air Room Air BMI result Body Mass Index 21.4 Labs 03/10/24 15:48 03/10/24 15:48 Imaging Radiology Impressions: ITS Impressions KUB X-Ray 03/18/24 15:00 IMPRESSION: Moderate constipation. Electronically signed by: Jass Caldwell MD 03/18/2024 04:38 PM EST RP KUB X-Ray 03/23/24 09:46 IMPRESSION: Mild constipation. Electronically signed by: Jass Caldwell MD 03/24/2024 01:25 PM EST RP Medications Medications Current Medications Acetaminophen (Acetaminophen 325 Mg Tablet) 325 mg PO Q6H PRN PRN Reason: Pain, Mild (Pain Scale 1-3) Acetaminophen (Acetaminophen 325 Mg Tablet) 650 mg PO Q6H PRN PRN Reason: Pain, Moderate(Pain Scale 4-6) Al Hydroxide/Mg Hydroxide (Magnesium Hydrox/Alum Hydrox 30 Ml Oral.Susp) 30 ml PO Q6H PRN PRN Reason: Heartburn/Nausea Last Admin: 04/04/24 02:30 Dose: 30 ml Benzocaine (Throat Lozenge, Medicated Lozenge) 1 lozenge MUCOUS MEM Q2H PRN PRN Reason: Dry Throat Last Admin: 03/23/24 20:18 Dose: 1 lozenge Calcium Carbonate (Calcium Oyster Shell Elemental 500 Mg Tablet) 500 mg PO DAILY [facility] Last Admin: 04/08/24 09:55 Dose: 500 mg Calcium Carbonate (Calcium Carbonate 750 Mg Tab.Chew) 750 mg PO TID PRN PRN Reason: Indigestion Last Admin: 04/02/24 10:36 Dose: 750 mg Clonidine HCl (Clonidine Hcl 0.1 Mg Tablet) 0.1 mg PO DAILY PRN; Protocol PRN Reason: anxiety-severe Last Admin: 04/08/24 21:59 Dose: 0.1 mg Fluoxetine HCl (Fluoxetine Hcl 20 Mg Capsule) 20 mg PO DAILY [facility] Last Admin: 04/08/24 09:57 Dose: 20 mg Fluvoxamine Maleate (Fluvoxamine Maleate 50 Mg Tablet) 100 mg PO BEDTIME [facility] Last Admin: 04/08/24 20:56 Dose: 100 mg Fluvoxamine Maleate (Fluvoxamine Maleate 50 Mg Tablet) 100 mg PO DAILY [facility] Last Admin: 04/08/24 09:56 Dose: 100 mg Hydroxyzine HCl (Hydroxyzine Hcl 25 Mg Tablet) 25 mg PO Q6H PRN PRN Reason: anxiety mild Hydroxyzine HCl (Hydroxyzine Hcl 50 Mg Tablet) 50 mg PO Q6H PRN PRN Reason: anxiety moderate Last Admin: 04/09/24 00:37 Dose: 50 mg Ibuprofen (Ibuprofen 600 Mg Tablet) 600 mg PO Q6H PRN PRN Reason: Pain, Severe (Pain Scale 7-10) Lamotrigine (Lamotrigine 100 Mg Tablet) 100 mg PO DAILY [facility] Last Admin: 04/08/24 09:58 Dose: 100 mg Levothyroxine Sodium (Levothyroxine Sodium 88 Mcg Tablet) 88 mcg PO DAILY@0600 [facility] Last Admin: 04/08/24 06:19 Dose: 88 mcg Loperamide HCl (Loperamide Hcl 2 Mg Capsule) 4 mg PO Q6H PRN PRN Reason: Diarrhea Lorazepam (Lorazepam 0.5 Mg Tablet) 0.5 mg PO BID PRN PRN Reason: Anxiety Last Admin: 04/09/24 01:06 Dose: 0.5 mg Magnesium Hydroxide (Milk Of Magnesia 30 Ml Oral.Susp) 30 ml PO DAILY PRN PRN Reason: Constipation Last Admin: 04/04/24 16:21 Dose: 30 ml Meclizine HCl (Meclizine Hcl 12.5 Mg Tablet) 12.5 mg PO TID PRN PRN Reason: Dizziness Last Admin: 03/16/24 22:15 Dose: 12.5 mg Methylphenidate HCl (Methylphenidate Hcl 10 Mg Tablet) 20 mg PO TID@0700,1100,1500 [facility] Last Admin: 04/08/24 15:03 Dose: 20 mg Naproxen (Naproxen 500 Mg Tablet) 500 mg PO BID [facility] Last Admin: 04/08/24 20:56 Dose: 500 mg Nicotine Polacrilex (Nicotine Polacrilex 2 Mg Gum) 4 mg BUCCAL Q2H PRN PRN Reason: Nicotine Cravings Olanzapine (Olanzapine 5 Mg Tablet) 5 mg PO TID PRN PRN Reason: agitation Last Admin: 04/09/24 00:37 Dose: 5 mg Olanzapine (Olanzapine 5 Mg Tablet) 5 mg PO BID [facility] Last Admin: 04/08/24 20:56 Dose: 5 mg Polyethylene Glycol (Polyethylene Glycol 3350 17 Gm Powd.Pack) 17 gm PO DAILY [facility] Last Admin: 04/05/24 09:08 Dose: Not Given Saliva Substitute (Dry Mouth [place]ankin 60 Ml Lankin) 1 spray MUCOUS MEM Q2H PRN PRN Reason: dry throat Senna/Docusate Sodium (Sennosides/Docusate Sodium Tablet) 1 tab PO BID [facility] Last Admin: 04/05/24 09:09 Dose: Not Given Trazodone HCl (Trazodone Hcl 50 Mg Tablet) 50 mg PO BEDTIME MRX1 PRN PRN Reason: Insomnia Last Admin: 04/08/24 22:00 Dose: 50 mg Vitamin D (Cholecalciferol (Vitamin D3) 25 Mcg Tablet) 25 mcg PO DAILY [facility] Last Admin: 04/08/24 09:55 Dose: 25 mcg Allergies Allergies Allergy/AdvReac Type Severity Reaction Status Date / Time codeine Allergy Swelling Verified 03/10/24 14:55 Assessment & Plan Assessment & Plan (1) Recurrent major depression-severe: Qualifiers: Psychotic features: without psychotic features Qualified Code(s): F33.2 - Major depressive disorder, recurrent severe without psychotic features Status: Acute Code(s): F33.2 - Major depressive disorder, recurrent severe without psychotic features (2) PTSD (post-traumatic stress disorder): Status: Acute Code(s): F43.10 - Post-traumatic stress disorder, unspecified Plan PTSD, Recurrent Major Depression, OCD, Anorexia Nervosa,Binge Purge Type, Borderline Personality Disorder, Polysubstance use disorder-alcohol, cannabis, opiates, TBI. Hospital course: 03/05: continue current tx plan. 03/16/24-0ngoing depression with si - and complicating hx tbi and poor reactivity to medications- requires ongoing inpatient level of care 03/17/24 for now will continue current medications. added miralax and senakot for constipation. Consider ECT for severe refractory depression and suicidality. 03/18 continues to report constipation, no vomiting nor abdominal pain. Had head CT- microvascular changes and atrophy. no acute findings. more hopeless and tearful today but willing to get better and continue tx. consider ECT. 03/20/2024: No changes to current plan. 03/21 continue tx. may benefit from med changes, or even ECT, 03/24/24: Olanzapine 2.5 mg bid to address sx of anxiety, augment SSRI's 03/25/24: Continue tx 03/26 Patient initially reports that she is not doing any better however after more discussion and consideration of her behaviors, she agrees that she is feeling a little less depressed and a little less anxious and that she can tell because she is attending to her ADLs, showering, dressing herself well. She also says that she is actually starting to have hope that she will be able to get better. However she reports that her mood continues to fluctuate throughout the day and that SI thoughts come and go. She is afraid of discharge and getting suicidal when she leaves. -Discussed more of her history, symptoms,, trauma, bulimia, childhood experiences, medication trials. Patient says she has been on Prozac for over 30 years but has never really felt much benefit from it, even when it was at 80 mg. 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 She has been on 50 mg b.i.d. for few months. Aerial Applicator Pilot discussed the risk of serotonin syndrome and what to look out for but also discussed increasing this medication to which patient agreed. -increasing Luvox 100 mg q.h.s. -leave Prozac at 40 mg; will watch for serotonin syndrome; however if Luvox continues to be effective, may consider tapering and discontinuing Prozac since she says it has never been helpful 03/27 no change in presentation; tolerated increased Luvox; continue current regimen 03/28 continue discussion with pt/brother about guns in mother's home and visitation. 04/01 continue tx, increase luvox, pt is asked to give some consideration over the weekend to coping skills she has learned and can use in community when discharged. 04/03/2024: Continue current regimen and plans. Decrease Prozac to 20 mg 04/04/24: Increase Olanzapine to 5 mg bid. 04/05 continue tx. 04/06 continue tx 04/08 Continue regime/plan 04/09 Continue tx Plan: CV, 15 minute checks -Continue Luvox 50 mg daily -INCREASE Luvox to 100mg qhs (patient said this medication has consistently been effective) -Continue Prozac 40 mg for now; patient says this medication has not been effective over the years; will consider tapering if Luvox proves effective enough -Continue current Lamictal dose for now Medical care/consult as needed. Pt has several issues not addressed --Neuro consult-recent falls, balance issues reported --Xrays R Ankle, Hip-reports significant pain Collateral contacts Continue current regime at this time-pt reports several trials-will talk with OP team prior to making changes. Aftercare/Discharge planning Reason for continued inpatient stay Substantial Risk for: rapid decompensation Time Spent With Patient Time: Total time managing care of this patient today ____ minutes.
[2024-04-09] MEDS: Methylphenidate HCl 10 MG TABLET 20 MG PO ×3 (06:23→15:28)
[2024-04-09] MEDS: Levothyroxine Sodium 88 MCG TABLET PO (06:24)
[2024-04-09 08:00] VITALS: BP 125/57; PULSE 100; TEMP 37.3; O2SAT 99
[2024-04-09] MEDS: Cholecalciferol (Vitamin D3) 25 MCG TABLET PO (09:37)
[2024-04-09] MEDS: FLUoxetine HCl 20 MG CAPSULE PO (09:37)
[2024-04-09] MEDS: NaPROXEN 500 MG TABLET PO ×2 (09:38→20:34)
[2024-04-09] MEDS: Calcium Oyster Shell Elemental 500 MG TABLET PO (09:38)
[2024-04-09] MEDS: lamoTRIgine 100 MG TABLET PO (09:38)
[2024-04-09] MEDS: fluvoxaMINE Maleate 50 MG TABLET 100 MG PO ×2 (10:53→20:34)
[2024-04-09] MEDS: Throat Lozenge, Medicated LOZENGE 1 LOZENGE MUCOUS MEM ×2 (14:08→18:35)
[2024-04-09 17:43] VITALS: TEMP 36.4
[2024-04-09 19:45] VITALS: BP 125/72; PULSE 82; TEMP 36.2; O2SAT 96
[2024-04-09] MEDS: traZODone HCL 50 MG TABLET PO (20:34)
[2024-04-10] MEDS: Levothyroxine Sodium 88 MCG TABLET PO (06:29)
[2024-04-10] MEDS: Methylphenidate HCl 10 MG TABLET 20 MG PO ×3 (06:29→14:36)
[2024-04-10 07:49] VITALS: BP 120/57; PULSE 84; TEMP 36.8; O2SAT 95
--- NOTE | 2024-04-10 08:44 | HO.PSYCHPN ---
Subjective Subjective Date of Service: 04/10/24 Reason For Visit: depressed Subjective Notes: Conditional Voluntary Healthcare Proxy: No Guardianship: No Medical Problems Affecting Mental Status: No Interim History: Pt seen, reviewed with the team. Working on scheduling her time today as assigned by her adoption social worker. Mild euphoria noted Denies med SE. Reports efficacy and feeling improved. Medication Compliance: Yes Side effects from medications: No Attending Groups: Yes Review of Systems Acute medical concerns: No Medical Review of Systems: unchanged Review of Systems Review of Systems Denies Mental Status Exam Mental Status Exam Patient Appearance: Appropriate Patient Orientation: Person, Place, Time and Situation Level of Consciousness: Alert Patient Behavior: Talkative, Cooperative and Good Eye Contact Mood Description: Depressed and Anxious Affect Description: Anxious and Flat Patient Cognition Impaired: No Ability to Follow Directions: Good Speech Pattern: Spontaneous Speech Memory Description: Intact Hallucinations: None Perceptual Disturbances: Depersonalization and Derealization Thought Process: Distracted and Rumination Thought Content: positive for Perseveration and positive for Suicidal Ideation Depressive Symptoms: Thoughts of /Suicide Judgement: Fair Diagnostics Vital Signs (24Hr): Vital Signs - 24 hr 04/09/24 17:43 04/09/24 19:45 04/10/24 07:49 Temperature 97.5 F 97.1 F 98.3 F Pulse Rate 82 84 Blood Pressure 125/72 120/57 L Pulse Oximetry 96 95 Oxygen Delivery Method Room Air Room Air BMI result Body Mass Index 21.4 Labs 03/10/24 15:48 03/10/24 15:48 Imaging Radiology Impressions: ITS Impressions KUB X-Ray 03/18/24 15:00 IMPRESSION: Moderate constipation. Electronically signed by: Jass Caldwell MD 03/18/2024 04:38 PM EST RP KUB X-Ray 03/23/24 09:46 IMPRESSION: Mild constipation. Electronically signed by: Jass Caldwell MD 03/24/2024 01:25 PM EST RP Medications Medications Current Medications Acetaminophen (Acetaminophen 325 Mg Tablet) 325 mg PO Q6H PRN PRN Reason: Pain, Mild (Pain Scale 1-3) Acetaminophen (Acetaminophen 325 Mg Tablet) 650 mg PO Q6H PRN PRN Reason: Pain, Moderate(Pain Scale 4-6) Al Hydroxide/Mg Hydroxide (Magnesium Hydrox/Alum Hydrox 30 Ml Oral.Susp) 30 ml PO Q6H PRN PRN Reason: Heartburn/Nausea Last Admin: 04/04/24 02:30 Dose: 30 ml Benzocaine (Throat Lozenge, Medicated Lozenge) 1 lozenge MUCOUS MEM Q2H PRN PRN Reason: Dry Throat Last Admin: 04/09/24 18:35 Dose: 1 lozenge Calcium Carbonate (Calcium Oyster Shell Elemental 500 Mg Tablet) 500 mg PO DAILY [facility] Last Admin: 04/09/24 09:38 Dose: 500 mg Calcium Carbonate (Calcium Carbonate 750 Mg Tab.Chew) 750 mg PO TID PRN PRN Reason: Indigestion Last Admin: 04/02/24 10:36 Dose: 750 mg Clonidine HCl (Clonidine Hcl 0.1 Mg Tablet) 0.1 mg PO DAILY PRN; Protocol PRN Reason: anxiety-severe Last Admin: 04/08/24 21:59 Dose: 0.1 mg Fluoxetine HCl (Fluoxetine Hcl 20 Mg Capsule) 20 mg PO DAILY [facility] Last Admin: 04/09/24 09:37 Dose: 20 mg Fluvoxamine Maleate (Fluvoxamine Maleate 50 Mg Tablet) 100 mg PO BEDTIME [facility] Last Admin: 04/09/24 20:34 Dose: 100 mg Fluvoxamine Maleate (Fluvoxamine Maleate 50 Mg Tablet) 100 mg PO DAILY [facility] Last Admin: 04/09/24 10:53 Dose: 100 mg Hydroxyzine HCl (Hydroxyzine Hcl 25 Mg Tablet) 25 mg PO Q6H PRN PRN Reason: anxiety mild Hydroxyzine HCl (Hydroxyzine Hcl 50 Mg Tablet) 50 mg PO Q6H PRN PRN Reason: anxiety moderate Last Admin: 04/09/24 00:37 Dose: 50 mg Ibuprofen (Ibuprofen 600 Mg Tablet) 600 mg PO Q6H PRN PRN Reason: Pain, Severe (Pain Scale 7-10) Lamotrigine (Lamotrigine 100 Mg Tablet) 100 mg PO DAILY [facility] Last Admin: 04/09/24 09:38 Dose: 100 mg Levothyroxine Sodium (Levothyroxine Sodium 88 Mcg Tablet) 88 mcg PO DAILY@0600 [facility] Last Admin: 04/10/24 06:29 Dose: 88 mcg Loperamide HCl (Loperamide Hcl 2 Mg Capsule) 4 mg PO Q6H PRN PRN Reason: Diarrhea Lorazepam (Lorazepam 0.5 Mg Tablet) 0.5 mg PO BID PRN PRN Reason: Anxiety Last Admin: 04/09/24 20:34 Dose: 0.5 mg Magnesium Hydroxide (Milk Of Magnesia 30 Ml Oral.Susp) 30 ml PO DAILY PRN PRN Reason: Constipation Last Admin: 04/04/24 16:21 Dose: 30 ml Meclizine HCl (Meclizine Hcl 12.5 Mg Tablet) 12.5 mg PO TID PRN PRN Reason: Dizziness Last Admin: 03/16/24 22:15 Dose: 12.5 mg Methylphenidate HCl (Methylphenidate Hcl 10 Mg Tablet) 20 mg PO TID@0700,1100,1500 [facility] Last Admin: 04/10/24 06:29 Dose: 20 mg Naproxen (Naproxen 500 Mg Tablet) 500 mg PO BID [facility] Last Admin: 04/09/24 20:34 Dose: 500 mg Nicotine Polacrilex (Nicotine Polacrilex 2 Mg Gum) 4 mg BUCCAL Q2H PRN PRN Reason: Nicotine Cravings Olanzapine (Olanzapine 5 Mg Tablet) 5 mg PO TID PRN PRN Reason: agitation Last Admin: 04/09/24 15:31 Dose: 5 mg Olanzapine (Olanzapine 5 Mg Tablet) 5 mg PO BID [facility] Last Admin: 04/09/24 20:34 Dose: 5 mg Polyethylene Glycol (Polyethylene Glycol 3350 17 Gm Powd.Pack) 17 gm PO DAILY [facility] Last Admin: 04/05/24 09:08 Dose: Not Given Saliva Substitute (Dry Mouth [place] 60 Ml [place]) 1 spray MUCOUS MEM Q2H PRN PRN Reason: dry throat Senna/Docusate Sodium (Sennosides/Docusate Sodium Tablet) 1 tab PO BID [facility] Last Admin: 04/05/24 09:09 Dose: Not Given Trazodone HCl (Trazodone Hcl 50 Mg Tablet) 50 mg PO BEDTIME MRX1 PRN PRN Reason: Insomnia Last Admin: 04/09/24 20:34 Dose: 50 mg Vitamin D (Cholecalciferol (Vitamin D3) 25 Mcg Tablet) 25 mcg PO DAILY [facility] Last Admin: 04/09/24 09:37 Dose: 25 mcg Allergies Allergies Allergy/AdvReac Type Severity Reaction Status Date / Time codeine Allergy Swelling Verified 03/10/24 14:55 Assessment & Plan Assessment & Plan (1) Recurrent major depression-severe: Qualifiers: Psychotic features: without psychotic features Qualified Code(s): F33.2 - Major depressive disorder, recurrent severe without psychotic features Status: Acute Code(s): F33.2 - Major depressive disorder, recurrent severe without psychotic features (2) PTSD (post-traumatic stress disorder): Status: Acute Code(s): F43.10 - Post-traumatic stress disorder, unspecified Plan PTSD, Recurrent Major Depression, OCD, Anorexia Nervosa,Binge Purge Type, Borderline Personality Disorder, Polysubstance use disorder-alcohol, cannabis, opiates, TBI. Hospital course: 03/05: continue current tx plan. 03/16/24-0ngoing depression with si - and complicating hx tbi and poor reactivity to medications- requires ongoing inpatient level of care 03/17/24 for now will continue current medications. added miralax and senakot for constipation. Consider ECT for severe refractory depression and suicidality. 03/18 continues to report constipation, no vomiting nor abdominal pain. Had head CT- microvascular changes and atrophy. no acute findings. more hopeless and tearful today but willing to get better and continue tx. consider ECT. 03/20/2024: No changes to current plan. 03/21 continue tx. may benefit from med changes, or even ECT, 03/24/24: Olanzapine 2.5 mg bid to address sx of anxiety, augment SSRI's 03/25/24: Continue tx 03/26 Patient initially reports that she is not doing any better however after more discussion and consideration of her behaviors, she agrees that she is feeling a little less depressed and a little less anxious and that she can tell because she is attending to her ADLs, showering, dressing herself well. She also says that she is actually starting to have hope that she will be able to get better. However she reports that her mood continues to fluctuate throughout the day and that SI thoughts come and go. She is afraid of discharge and getting suicidal when she leaves. -Discussed more of her history, symptoms,, trauma, bulimia, childhood experiences, medication trials. Patient says she has been on Prozac for over 30 years but has never really felt much benefit from it, even when it was at 80 mg. However when she was 1st started on Luvox about a year ago, she noticed improvement pattern chart writer way; noticed further improvement when it was increased. She has been on 50 mg b.i.d. for few months. Test Designer discussed the risk of serotonin syndrome and what to look out for but also discussed increasing this medication to which patient agreed. -increasing Luvox 100 mg q.h.s. -leave Prozac at 40 mg; will watch for serotonin syndrome; however if Luvox continues to be effective, may consider tapering and discontinuing Prozac since she says it has never been helpful 03/27 no change in presentation; tolerated increased Luvox; continue current regimen 03/28 continue discussion with pt/brother about guns in mother's home and visitation. 04/01 continue tx, increase luvox, pt is asked to give some consideration over the weekend to coping skills she has learned and can use in community when discharged. 04/03/2024: Continue current regimen and plans. Decrease Prozac to 20 mg 04/04/24: Increase Olanzapine to 5 mg bid. 04/05 continue tx. 04/06 continue tx 04/08 Continue regime/plan 04/10 Continue tx Plan: CV, 15 minute checks -Continue Luvox 50 mg daily -INCREASE Luvox to 100mg qhs (patient said this medication has consistently been effective) -Continue Prozac 40 mg for now; patient says this medication has not been effective over the years; will consider tapering if Luvox proves effective enough -Continue current Lamictal dose for now Medical care/consult as needed. Pt has several issues not addressed --Neuro consult-recent falls, balance issues reported --Xrays R Ankle, Hip-reports significant pain Collateral contacts Continue current regime at this time-pt reports several trials-will talk with OP team prior to making changes. Aftercare/Discharge planning Reason for continued inpatient stay Substantial Risk for: rapid decompensation Time Spent With Patient Time: Total time managing care of this patient today ____ minutes.
[2024-04-10] MEDS: NaPROXEN 500 MG TABLET PO ×2 (09:08→21:51)
[2024-04-10] MEDS: Calcium Oyster Shell Elemental 500 MG TABLET PO (09:08)
[2024-04-10] MEDS: Cholecalciferol (Vitamin D3) 25 MCG TABLET PO (09:08)
[2024-04-10] MEDS: lamoTRIgine 100 MG TABLET PO (09:08)
[2024-04-10] MEDS: FLUoxetine HCl 20 MG CAPSULE PO (09:08)
[2024-04-10] MEDS: OLANZapine 5 MG TABLET PO ×3 (09:08→21:50)
[2024-04-10] MEDS: fluvoxaMINE Maleate 50 MG TABLET 100 MG PO ×2 (10:49→21:50)
[2024-04-10] MEDS: Throat Lozenge, Medicated LOZENGE 1 LOZENGE MUCOUS MEM (19:09)
[2024-04-10 20:00] VITALS: BP 149/56; PULSE 90; TEMP 36.2; O2SAT 97
[2024-04-10] MEDS: LORazepam 0.5 MG TABLET PO (21:54)
[2024-04-10] MEDS: traZODone HCL 50 MG TABLET PO (23:08)
[2024-04-11] MEDS: Levothyroxine Sodium 88 MCG TABLET PO (06:07)
[2024-04-11] MEDS: Methylphenidate HCl 10 MG TABLET 20 MG PO ×3 (06:54→15:34)
[2024-04-11 08:32] VITALS: BP 133/76; PULSE 102; RESP 16; TEMP 36.2; O2SAT 97
[2024-04-11] MEDS: lamoTRIgine 100 MG TABLET PO (09:20)
[2024-04-11] MEDS: Calcium Oyster Shell Elemental 500 MG TABLET PO (09:20)
[2024-04-11] MEDS: NaPROXEN 500 MG TABLET PO ×2 (09:20→21:39)
[2024-04-11] MEDS: FLUoxetine HCl 20 MG CAPSULE PO (09:33)
[2024-04-11] MEDS: OLANZapine 5 MG TABLET PO ×3 (09:33→21:38)
[2024-04-11] MEDS: Cholecalciferol (Vitamin D3) 25 MCG TABLET PO (09:33)
[2024-04-11] MEDS: fluvoxaMINE Maleate 50 MG TABLET 100 MG PO ×2 (09:33→21:38)
[2024-04-11 10:07] VITALS: BP 130/74
[2024-04-11] MEDS: cloNIDine HCL 0.1 MG TABLET PO (10:07)
--- NOTE | 2024-04-11 10:44 | P.PNPSI_ITS ---
Subjective Subjective Date of Service: 04/11/24 Reason For Visit: depressed Subjective Notes: Conditional Voluntary Healthcare Proxy: No Guardianship: No Medical Problems Affecting Mental Status: No Interim History: Pt reports she is working on it. Discussed an issue she has with her brother Mahesh-states when he suggested she consider a rest home or DETENTION that he thinks she has dementia like his brother in law. Discussed tw impression of that discussion-to offer pt similiar community support that Mahesh's brother in law is receiving, with no mention of dementia. Pt is prepared to discuss discharge. Will review with team and we will set a date. Medication Compliance: Yes Side effects from medications: No Attending Groups: Yes Review of Systems Acute medical concerns: No Medical Review of Systems: unchanged Review of Systems Review of Systems denies Mental Status Exam Mental Status Exam Patient Appearance: Appropriate Patient Orientation: Person, Place, Time and Situation Level of Consciousness: Alert Patient Behavior: Talkative, Cooperative and Good Eye Contact Mood Description: Depressed and Anxious Affect Description: Anxious and Flat Patient Cognition Impaired: No Ability to Follow Directions: Good Speech Pattern: Spontaneous Speech Memory Description: Intact Hallucinations: None Perceptual Disturbances: Depersonalization and Derealization Thought Process: Distracted and Rumination Thought Content: positive for Perseveration and positive for Suicidal Ideation Depressive Symptoms: Thoughts of /Suicide Judgement: Fair Diagnostics Vital Signs (24Hr): Vital Signs - 24 hr 04/10/24 20:00 04/11/24 08:32 04/11/24 10:07 Temperature 97.1 F 97.1 F Pulse Rate 90 102 H Respiratory Rate 16 Blood Pressure 149/56 H 133/76 130/74 Pulse Oximetry 97 97 Oxygen Delivery Method Room Air Room Air BMI result Body Mass Index 21.4 Labs 03/10/24 15:48 03/10/24 15:48 Imaging Radiology Impressions: ITS Impressions [facility] X-Ray 03/18/24 15:00 IMPRESSION: Moderate constipation. Electronically signed by: Jass Caldwell MD 03/18/2024 04:38 PM EST RP KUB X-Ray 03/23/24 09:46 IMPRESSION: Mild constipation. Electronically signed by: Jass Caldwell MD 03/24/2024 01:25 PM EST RP Medications Medications Current Medications Acetaminophen (Acetaminophen 325 Mg Tablet) 325 mg PO Q6H PRN PRN Reason: Pain, Mild (Pain Scale 1-3) Acetaminophen (Acetaminophen 325 Mg Tablet) 650 mg PO Q6H PRN PRN Reason: Pain, Moderate(Pain Scale 4-6) Al Hydroxide/Mg Hydroxide (Magnesium Hydrox/Alum Hydrox 30 Ml Oral.Susp) 30 ml PO Q6H PRN PRN Reason: Heartburn/Nausea Last Admin: 04/04/24 02:30 Dose: 30 ml Benzocaine (Throat Lozenge, Medicated Lozenge) 1 lozenge MUCOUS MEM Q2H PRN PRN Reason: Dry Throat Last Admin: 04/10/24 19:09 Dose: 1 lozenge Calcium Carbonate (Calcium Oyster Shell Elemental 500 Mg Tablet) 500 mg PO DAILY [facility] Last Admin: 04/11/24 09:20 Dose: 500 mg Calcium Carbonate (Calcium Carbonate 750 Mg Tab.Chew) 750 mg PO TID PRN PRN Reason: Indigestion Last Admin: 04/02/24 10:36 Dose: 750 mg Clonidine HCl (Clonidine Hcl 0.1 Mg Tablet) 0.1 mg PO DAILY PRN; Protocol PRN Reason: anxiety-severe Last Admin: 04/11/24 10:07 Dose: 0.1 mg Fluoxetine HCl (Fluoxetine Hcl 20 Mg Capsule) 20 mg PO DAILY [facility] Last Admin: 04/11/24 09:33 Dose: 20 mg Fluvoxamine Maleate (Fluvoxamine Maleate 50 Mg Tablet) 100 mg PO BEDTIME [facility] Last Admin: 04/10/24 21:50 Dose: 100 mg Fluvoxamine Maleate (Fluvoxamine Maleate 50 Mg Tablet) 100 mg PO DAILY [facility] Last Admin: 04/11/24 09:33 Dose: 100 mg Hydroxyzine HCl (Hydroxyzine Hcl 25 Mg Tablet) 25 mg PO Q6H PRN PRN Reason: anxiety mild Hydroxyzine HCl (Hydroxyzine Hcl 50 Mg Tablet) 50 mg PO Q6H PRN PRN Reason: anxiety moderate Last Admin: 04/09/24 00:37 Dose: 50 mg Ibuprofen (Ibuprofen 600 Mg Tablet) 600 mg PO Q6H PRN PRN Reason: Pain, Severe (Pain Scale 7-10) Lamotrigine (Lamotrigine 100 Mg Tablet) 100 mg PO DAILY [facility] Last Admin: 04/11/24 09:20 Dose: 100 mg Levothyroxine Sodium (Levothyroxine Sodium 88 Mcg Tablet) 88 mcg PO DAILY@0600 [facility] Last Admin: 04/11/24 06:07 Dose: 88 mcg Loperamide HCl (Loperamide Hcl 2 Mg Capsule) 4 mg PO Q6H PRN PRN Reason: Diarrhea Lorazepam (Lorazepam 0.5 Mg Tablet) 0.5 mg PO BID PRN PRN Reason: Anxiety Last Admin: 04/10/24 21:54 Dose: 0.5 mg Magnesium Hydroxide (Milk Of Magnesia 30 Ml Oral.Susp) 30 ml PO DAILY PRN PRN Reason: Constipation Last Admin: 04/04/24 16:21 Dose: 30 ml Meclizine HCl (Meclizine Hcl 12.5 Mg Tablet) 12.5 mg PO TID PRN PRN Reason: Dizziness Last Admin: 03/16/24 22:15 Dose: 12.5 mg Methylphenidate HCl (Methylphenidate Hcl 10 Mg Tablet) 20 mg PO TID@0700,1100,1500 [facility] Last Admin: 04/11/24 06:54 Dose: 20 mg Naproxen (Naproxen 500 Mg Tablet) 500 mg PO BID [facility] Last Admin: 04/11/24 09:20 Dose: 500 mg Nicotine Polacrilex (Nicotine Polacrilex 2 Mg Gum) 4 mg BUCCAL Q2H PRN PRN Reason: Nicotine Cravings Olanzapine (Olanzapine 5 Mg Tablet) 5 mg PO TID PRN PRN Reason: agitation Last Admin: 04/11/24 10:07 Dose: 5 mg Olanzapine (Olanzapine 5 Mg Tablet) 5 mg PO BID [facility] Last Admin: 04/11/24 09:33 Dose: 5 mg Polyethylene Glycol (Polyethylene Glycol 3350 17 Gm Powd.Pack) 17 gm PO DAILY [facility] Last Admin: 04/05/24 09:08 Dose: Not Given Saliva Substitute (Dry Mouth [place] 60 Ml [place]) 1 spray MUCOUS MEM Q2H PRN PRN Reason: dry throat Senna/Docusate Sodium (Sennosides/Docusate Sodium Tablet) 1 tab PO BID [facility] Last Admin: 04/05/24 09:09 Dose: Not Given Trazodone HCl (Trazodone Hcl 50 Mg Tablet) 50 mg PO BEDTIME MRX1 PRN PRN Reason: Insomnia Last Admin: 04/10/24 23:08 Dose: 50 mg Vitamin D (Cholecalciferol (Vitamin D3) 25 Mcg Tablet) 25 mcg PO DAILY [facility] Last Admin: 04/11/24 09:33 Dose: 25 mcg Allergies Allergies Allergy/AdvReac Type Severity Reaction Status Date / Time codeine Allergy Swelling Verified 03/10/24 14:55 Assessment & Plan Assessment & Plan (1) Recurrent major depression-severe: Qualifiers: Psychotic features: without psychotic features Qualified Code(s): F33.2 - Major depressive disorder, recurrent severe without psychotic features Status: Acute Code(s): F33.2 - Major depressive disorder, recurrent severe without psychotic features (2) PTSD (post-traumatic stress disorder): Status: Acute Code(s): F43.10 - Post-traumatic stress disorder, unspecified Plan PTSD, Recurrent Major Depression, OCD, Anorexia Nervosa,Binge Purge Type, Borderline Personality Disorder, Polysubstance use disorder-alcohol, cannabis, opiates, TBI. Hospital course: 03/05: continue current tx plan. 03/16/24-0ngoing depression with si - and complicating hx tbi and poor reactivity to medications- requires ongoing inpatient level of care 03/17/24 for now will continue current medications. added miralax and senakot for constipation. Consider ECT for severe refractory depression and suicidality. 03/18 continues to report constipation, no vomiting nor abdominal pain. Had head CT- microvascular changes and atrophy. no acute findings. more hopeless and tearful today but willing to get better and continue tx. consider ECT. 03/20/2024: No changes to current plan. 03/21 continue tx. may benefit from med changes, or even ECT, 03/24/24: Olanzapine 2.5 mg bid to address sx of anxiety, augment SSRI's 03/25/24: Continue tx 03/26 Patient initially reports that she is not doing any better however after more discussion and consideration of her behaviors, she agrees that she is feeling a little less depressed and a little less anxious and that she can tell because she is attending to her ADLs, showering, dressing herself well. She also says that she is actually starting to have hope that she will be able to get better. However she reports that her mood continues to fluctuate throughout the day and that SI thoughts come and go. She is afraid of discharge and getting suicidal when she leaves. -Discussed more of her history, symptoms,, trauma, bulimia, childhood experiences, medication trials. Patient says she has been on Prozac for over 30 years but has never really felt much benefit from it, even when it was at 80 mg. However when she was 1st started on Luvox about a year ago, she noticed improvement board writer way; noticed further improvement when it was increased. She has been on 50 mg b.i.d. for few months. Paper Final Inspector discussed the risk of serotonin syndrome and what to look out for but also discussed increasing this medication to which patient agreed. -increasing Luvox 100 mg q.h.s. -leave Prozac at 40 mg; will watch for serotonin syndrome; however if Luvox continues to be effective, may consider tapering and discontinuing Prozac since she says it has never been helpful 03/27 no change in presentation; tolerated increased Luvox; continue current regimen 03/28 continue discussion with pt/brother about guns in mother's home and visitation. 04/01 continue tx, increase luvox, pt is asked to give some consideration over the weekend to coping skills she has learned and can use in community when discharged. 04/03/2024: Continue current regimen and plans. Decrease Prozac to 20 mg 04/04/24: Increase Olanzapine to 5 mg bid. 04/05 continue tx. 04/06 continue tx 04/08 Continue regime/plan 04/10 Continue tx 04/11 discharge planning Plan: CV, 15 minute checks -Continue Luvox 50 mg daily -INCREASE Luvox to 100mg qhs (patient said this medication has consistently been effective) -Continue Prozac 40 mg for now; patient says this medication has not been effective over the years; will consider tapering if Luvox proves effective enough -Continue current Lamictal dose for now Medical care/consult as needed. Pt has several issues not addressed --Neuro consult-recent falls, balance issues reported --Xrays R Ankle, Hip-reports significant pain Collateral contacts Continue current regime at this time-pt reports several trials-will talk with OP team prior to making changes. Aftercare/Discharge planning Reason for continued inpatient stay Substantial Risk for: rapid decompensation Time Spent With Patient Time: Total time managing care of this patient today ____ minutes.
[2024-04-11] MEDS: Throat Lozenge, Medicated LOZENGE 1 LOZENGE MUCOUS MEM (19:09)
[2024-04-11] MEDS: LORazepam 0.5 MG TABLET PO (19:09)
[2024-04-11 20:00] VITALS: BP 165/80; PULSE 76; TEMP 36.3; O2SAT 97
[2024-04-12] MEDS: Levothyroxine Sodium 88 MCG TABLET PO (06:02)
[2024-04-12] MEDS: Throat Lozenge, Medicated LOZENGE 1 LOZENGE MUCOUS MEM (06:10)
[2024-04-12] MEDS: Methylphenidate HCl 10 MG TABLET 20 MG PO ×3 (07:09→14:28)
[2024-04-12 07:55] VITALS: BP 124/59; PULSE 75; RESP 16; TEMP 36.9; O2SAT 96
[2024-04-12] MEDS: Cholecalciferol (Vitamin D3) 25 MCG TABLET PO (08:43)
[2024-04-12] MEDS: NaPROXEN 500 MG TABLET PO ×2 (08:43→21:10)
[2024-04-12] MEDS: Calcium Oyster Shell Elemental 500 MG TABLET PO (08:43)
[2024-04-12] MEDS: OLANZapine 5 MG TABLET PO ×4 (08:43→21:11)
[2024-04-12] MEDS: lamoTRIgine 100 MG TABLET PO (08:44)
[2024-04-12] MEDS: fluvoxaMINE Maleate 50 MG TABLET 100 MG PO ×2 (08:44→21:11)
--- NOTE | 2024-04-12 08:44 | P.PNPSI_ITS ---
Subjective Subjective Date of Service: 04/12/24 Reason For Visit: depressed Subjective Notes: Conditional Voluntary Healthcare Proxy: No Guardianship: No Medical Problems Affecting Mental Status: No Interim History: Discussed discharge for 04/18. Pt will stay with her cousin, Terra. Reviewed plan of care with brother Mahesh. Pt and Mahesh will talk on 04/14 10:30am Pt comfortable with this plan. Labs for 04/13. Prozac to decrease to 10 mg 04/13 as well. Medication Compliance: Yes Side effects from medications: No Attending Groups: Yes Review of Systems Acute medical concerns: No Review of Systems Review of Systems Yes all other systems are reviewed and are negative Mental Status Exam Mental Status Exam Patient Appearance: Appropriate Patient Orientation: Person, Place, Time and Situation Level of Consciousness: Alert Patient Behavior: Talkative, Cooperative and Good Eye Contact Mood Description: Depressed and Anxious Affect Description: Anxious and Flat Patient Cognition Impaired: No Ability to Follow Directions: Good Speech Pattern: Spontaneous Speech Memory Description: Intact Hallucinations: None Perceptual Disturbances: Depersonalization and Derealization Thought Process: Distracted and Rumination Thought Content: positive for Perseveration and positive for Suicidal Ideation Judgement: Good Diagnostics Vital Signs (24Hr): Vital Signs - 24 hr 04/11/24 10:07 04/11/24 20:00 04/12/24 07:55 Temperature 97.3 F 98.4 F Pulse Rate 76 75 Respiratory Rate 16 Blood Pressure 130/74 165/80 H 124/59 L Pulse Oximetry 97 96 Oxygen Delivery Method Room Air Room Air BMI result Body Mass Index 21.4 Labs 03/10/24 15:48 03/10/24 15:48 Imaging Radiology Impressions: ITS Impressions KUB X-Ray 03/18/24 15:00 IMPRESSION: Moderate constipation. Electronically signed by: Jass Caldwell MD 03/18/2024 04:38 PM EST RP KUB X-Ray 03/23/24 09:46 IMPRESSION: Mild constipation. Electronically signed by: Jass Caldwell MD 03/24/2024 01:25 PM EST RP Medications Medications Current Medications Acetaminophen (Acetaminophen 325 Mg Tablet) 325 mg PO Q6H PRN PRN Reason: Pain, Mild (Pain Scale 1-3) Acetaminophen (Acetaminophen 325 Mg Tablet) 650 mg PO Q6H PRN PRN Reason: Pain, Moderate(Pain Scale 4-6) Al Hydroxide/Mg Hydroxide (Magnesium Hydrox/Alum Hydrox 30 Ml Oral.Susp) 30 ml PO Q6H PRN PRN Reason: Heartburn/Nausea Last Admin: 04/04/24 02:30 Dose: 30 ml Benzocaine (Throat Lozenge, Medicated Lozenge) 1 lozenge MUCOUS MEM Q2H PRN PRN Reason: Dry Throat Last Admin: 04/12/24 06:10 Dose: 1 lozenge Calcium Carbonate (Calcium Oyster Shell Elemental 500 Mg Tablet) 500 mg PO DAILY ON LICENSE OF [facility] Last Admin: 04/11/24 09:20 Dose: 500 mg Calcium Carbonate (Calcium Carbonate 750 Mg Tab.Chew) 750 mg PO TID PRN PRN Reason: Indigestion Last Admin: 04/02/24 10:36 Dose: 750 mg Clonidine HCl (Clonidine Hcl 0.1 Mg Tablet) 0.1 mg PO DAILY PRN; Protocol PRN Reason: anxiety-severe Last Admin: 04/11/24 10:07 Dose: 0.1 mg Fluoxetine HCl (Fluoxetine Hcl 20 Mg Capsule) 20 mg PO DAILY ON LICENSE OF [facility] Last Admin: 04/11/24 09:33 Dose: 20 mg Fluvoxamine Maleate (Fluvoxamine Maleate 50 Mg Tablet) 100 mg PO BEDTIME ON LICENSE OF [facility] Last Admin: 04/11/24 21:38 Dose: 100 mg Fluvoxamine Maleate (Fluvoxamine Maleate 50 Mg Tablet) 100 mg PO DAILY ON LICENSE OF [facility] Last Admin: 04/11/24 09:33 Dose: 100 mg Hydroxyzine HCl (Hydroxyzine Hcl 25 Mg Tablet) 25 mg PO Q6H PRN PRN Reason: anxiety mild Hydroxyzine HCl (Hydroxyzine Hcl 50 Mg Tablet) 50 mg PO Q6H PRN PRN Reason: anxiety moderate Last Admin: 04/09/24 00:37 Dose: 50 mg Ibuprofen (Ibuprofen 600 Mg Tablet) 600 mg PO Q6H PRN PRN Reason: Pain, Severe (Pain Scale 7-10) Lamotrigine (Lamotrigine 100 Mg Tablet) 100 mg PO DAILY ON [facility] OF [facility] Last Admin: 04/11/24 09:20 Dose: 100 mg Levothyroxine Sodium (Levothyroxine Sodium 88 Mcg Tablet) 88 mcg PO DAILY@0600 ON LICENSE OF [facility] Last Admin: 04/12/24 06:02 Dose: 88 mcg Loperamide HCl (Loperamide Hcl 2 Mg Capsule) 4 mg PO Q6H PRN PRN Reason: Diarrhea Lorazepam (Lorazepam 0.5 Mg Tablet) 0.5 mg PO BID PRN PRN Reason: Anxiety Last Admin: 04/11/24 19:09 Dose: 0.5 mg Magnesium Hydroxide (Milk Of Magnesia 30 Ml Oral.Susp) 30 ml PO DAILY PRN PRN Reason: Constipation Last Admin: 04/04/24 16:21 Dose: 30 ml Meclizine HCl (Meclizine Hcl 12.5 Mg Tablet) 12.5 mg PO TID PRN PRN Reason: Dizziness Last Admin: 03/16/24 22:15 Dose: 12.5 mg Methylphenidate HCl (Methylphenidate Hcl 10 Mg Tablet) 20 mg PO TID@0700,1100,1500 ON LICENSE OF [facility] Last Admin: 04/12/24 07:09 Dose: 20 mg Naproxen (Naproxen 500 Mg Tablet) 500 mg PO BID ON LICENSE OF [facility] Last Admin: 04/11/24 21:39 Dose: 500 mg Nicotine Polacrilex (Nicotine Polacrilex 2 Mg Gum) 4 mg BUCCAL Q2H PRN PRN Reason: Nicotine Cravings Olanzapine (Olanzapine 5 Mg Tablet) 5 mg PO TID PRN PRN Reason: agitation Last Admin: 04/11/24 10:07 Dose: 5 mg Olanzapine (Olanzapine 5 Mg Tablet) 5 mg PO BID ON LICENSE OF [facility] Last Admin: 04/11/24 21:38 Dose: 5 mg Polyethylene Glycol (Polyethylene Glycol 3350 17 Gm Powd.Pack) 17 gm PO DAILY ON LICENSE OF [facility] Last Admin: 04/05/24 09:08 Dose: Not Given Saliva Substitute (Dry Mouth [place] 60 Ml [place]) 1 spray MUCOUS MEM Q2H PRN PRN Reason: dry throat Senna/Docusate Sodium (Sennosides/Docusate Sodium Tablet) 1 tab PO BID ON LICENSE OF [facility] Last Admin: 04/05/24 09:09 Dose: Not Given Trazodone HCl (Trazodone Hcl 50 Mg Tablet) 50 mg PO BEDTIME MRX1 PRN PRN Reason: Insomnia Last Admin: 04/10/24 23:08 Dose: 50 mg Vitamin D (Cholecalciferol (Vitamin D3) 25 Mcg Tablet) 25 mcg PO DAILY ON LICENSE OF [facility] Last Admin: 04/11/24 09:33 Dose: 25 mcg Allergies Allergies Allergy/AdvReac Type Severity Reaction Status Date / Time codeine Allergy Swelling Verified 03/10/24 14:55 Assessment & Plan Assessment & Plan (1) Recurrent major depression-severe: Qualifiers: Psychotic features: without psychotic features Qualified Code(s): F33.2 - Major depressive disorder, recurrent severe without psychotic features Status: Acute Code(s): F33.2 - Major depressive disorder, recurrent severe without psychotic features (2) PTSD (post-traumatic stress disorder): Status: Acute Code(s): F43.10 - Post-traumatic stress disorder, unspecified Plan PTSD, Recurrent Major Depression, OCD, Anorexia Nervosa,Binge Purge Type, Borderline Personality Disorder, Polysubstance use disorder-alcohol, cannabis, opiates, TBI. Hospital course: 03/05: continue current tx plan. 03/16/24-0ngoing depression with si - and complicating hx tbi and poor reactivity to medications- requires ongoing inpatient level of care 03/17/24 for now will continue current medications. added miralax and senakot for constipation. Consider ECT for severe refractory depression and suicidality. 03/18 continues to report constipation, no vomiting nor abdominal pain. Had head CT- microvascular changes and atrophy. no acute findings. more hopeless and tearful today but willing to get better and continue tx. consider ECT. 03/20/2024: No changes to current plan. 03/21 continue tx. may benefit from med changes, or even ECT, 03/24/24: Olanzapine 2.5 mg bid to address sx of anxiety, augment SSRI's 03/25/24: Continue tx 03/26 Patient initially reports that she is not doing any better however after more discussion and consideration of her behaviors, she agrees that she is feeling a little less depressed and a little less anxious and that she can tell because she is attending to her ADLs, showering, dressing herself well. She also says that she is actually starting to have hope that she will be able to get better. However she reports that her mood continues to fluctuate throughout the day and that SI thoughts come and go. She is afraid of discharge and getting suicidal when she leaves. -Discussed more of her history, symptoms,, trauma, bulimia, childhood experiences, medication trials. Patient says she has been on Prozac for over 30 years but has never really felt much benefit from it, even when it was at 80 mg. 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 She has been on 50 mg b.i.d. for few months. [employer] discussed the risk of serotonin syndrome and what to look out for but also discussed increasing this medication to which patient agreed. -increasing Luvox 100 mg q.h.s. -leave Prozac at 40 mg; will watch for serotonin syndrome; however if Luvox continues to be effective, may consider tapering and discontinuing Prozac since she says it has never been helpful 03/27 no change in presentation; tolerated increased Luvox; continue current regimen 03/28 continue discussion with pt/brother about guns in mother's home and visitation. 04/01 continue tx, increase luvox, pt is asked to give some consideration over the weekend to coping skills she has learned and can use in community when discharged. 04/03/2024: Continue current regimen and plans. Decrease Prozac to 20 mg 04/04/24: Increase Olanzapine to 5 mg bid. 04/05 continue tx. 04/06 continue tx 04/08 Continue regime/plan 04/10 Continue tx 04/12 Decrease Prozac to 10 mg daily Labs 04/13 Discharge 04/18 to cousins home Scheduled call with brother 04/14 10:30am Plan: CV, 15 minute checks -Continue Luvox 50 mg daily -INCREASE Luvox to 100mg qhs (patient said this medication has consistently been effective) -Continue Prozac 40 mg for now; patient says this medication has not been effective over the years; will consider tapering if Luvox proves effective enough -Continue current Lamictal dose for now Medical care/consult as needed. Pt has several issues not addressed --Neuro consult-recent falls, balance issues reported --Xrays R Ankle, Hip-reports significant pain Collateral contacts Continue current regime at this time-pt reports several trials-will talk with OP team prior to making changes. Aftercare/Discharge planning Reason for continued inpatient stay Substantial Risk for: rapid decompensation Time Spent With Patient Time: Total time managing care of this patient today ____ minutes.
[2024-04-12] MEDS: FLUoxetine HCl 20 MG CAPSULE PO (10:13)
[2024-04-12] MEDS: LORazepam 0.5 MG TABLET PO (17:10)
[2024-04-12 20:00] VITALS: BP 138/73; PULSE 88; TEMP 35.9; O2SAT 96
[2024-04-12] MEDS: Acetaminophen 325 MG TABLET 650 MG PO (21:11)
[2024-04-12] MEDS: traZODone HCL 50 MG TABLET PO (22:42)
[2024-04-13] MEDS: Methylphenidate HCl 10 MG TABLET 20 MG PO ×3 (06:22→15:30)
[2024-04-13] MEDS: Levothyroxine Sodium 88 MCG TABLET PO (06:22)
[2024-04-13 08:00] VITALS: BP 121/64; PULSE 100; RESP 16; TEMP 36.8; O2SAT 95
[2024-04-13 08:21] LABS: Basophils Absolute Auto 0.1 X10*3/uL (0.0-0.2); Basophils Percent Auto 0.8 % (0-2); Eosinophils Absolute Auto 2.2 X10*3/uL (0.0-0.4); Eosinophils Percent Auto 16.9 % (0-4); Hematocrit 38.7 % (37.0-47.0); Imm Gran Abs Auto 0.04 X10*3/uL (0.00-0.03); Imm Gran Pct Auto 0.3 % (0.0-0.4); Lymphocytes Absolute Auto 2.2 X10*3/uL (1.2-4.9); Lymphocytes Percent Auto 17.6 % (20-40); MANUAL DIFF FLAG SCAN; Mean Corpuscular HGB Conc 33.6 g/dl (31.0-35.0); Mean Corpuscular Hemoglobin 33.9 pg (27.0-33.0); Mean Corpuscular Volume 100.8 fL (80.0-98.0); Mean Platelet Volume 9.9 fL (9.4-12.3); Monocytes Absolute Auto 1.4 X10*3/uL (0.1-1.2); Monocytes Percent Auto 11.1 % (2-11); Neutrophils Absolute Auto 6.8 x10*3/uL (2.0-8.3); Neutrophils Percent Auto 53.3 % (45-73); Platelet Count 237 X10*3/uL (160-400); Red Blood Count 3.84 X10*6/uL (4.20-5.50); Red Cell Distribution Width 14.1 % (11.0-16.0); SCAN SMEAR FLAG 1; White Blood Count 12.7 X10*3/uL (4.8-10.8)
[2024-04-13 08:28] LABS: Estimated Average Glucose 103 mg/dL; Hemoglobin A1C 111.5012 umol/L; Hemoglobin A1c % 5.2 % (<6.0); Total Hemoglobin (HGBA1C) 3341.3285 umol/L
[2024-04-13] MEDS: lamoTRIgine 100 MG TABLET PO (08:33)
[2024-04-13] MEDS: OLANZapine 5 MG TABLET PO ×3 (08:33→20:15)
[2024-04-13] MEDS: FLUoxetine HCl 10 MG CAPSULE PO (08:33)
[2024-04-13] MEDS: NaPROXEN 500 MG TABLET PO ×2 (08:33→20:15)
[2024-04-13] MEDS: fluvoxaMINE Maleate 50 MG TABLET 100 MG PO ×2 (08:33→20:14)
[2024-04-13] MEDS: Cholecalciferol (Vitamin D3) 25 MCG TABLET PO (08:33)
[2024-04-13] MEDS: Calcium Oyster Shell Elemental 500 MG TABLET PO (08:33)
[2024-04-13 08:43] LABS: Alanine Aminotransferase 41 U/L (0-31); Albumin Level 3.7 g/dL (3.5-5.0); Anion Gap 12 (12-20); Aspartate Amino Transferase 39 U/L (5-31); Bilirubin Total 0.3 mg/dL (0.0-1.0); Blood Urea Nitrogen 45 mg/dL (9-16); Calcium 10.3 mg/dL (8.4-10.2); Carbon Dioxide 23 mmol/L (22-29); Chloride 110 mmol/L (96-108); Cholesterol 205 mg/dL (<200); Creatinine Clr Calc Pharmacy 42.9; Estimated Glomerular Filt Rate 46; Glucose Random 137 mg/dL (60-115); HDL Cholesterol 109 mg/dL (>40); LDL Cholesterol Calculated 79 mg/dL (<100); Potassium 4.7 mmol/L (3.3-5.1); Sodium 140 mmol/L (135-145); Total Protein 7.3 g/dL (6.5-8.0); Triglycerides 85 mg/dL (<150)
[2024-04-13 08:46] LABS: SLIDE REVIEW VERIFIED
[2024-04-13 09:13] LABS: TSH reflex Free T4 2.09 uIU/mL (0.32-4.0)
[2024-04-13 09:15] LABS: Folate 16.3 ng/mL (> or = 4.0); Vitamin B12 590 pg/mL (200-900)
--- NOTE | 2024-04-13 10:17 | HO.PSYCHPN ---
Subjective Subjective Date of Service: 04/13/24 Reason For Visit: depressed Subjective Notes: Conditional Voluntary Healthcare Proxy: No Guardianship: No Medical Problems Affecting Mental Status: No Interim History: Discharge planning. Pt will discharge on 04/18. She will stay with her cousin Terra for a few weeks. Team has scheduled therapy and med appts for 04/19 and 04/20. Discussed talking with room-mate about his guns and her SI prior to admission. She will consider. Pt will talk with her brother on 04/14 1030am to review her plans. She reports she is safe and ready to move forward. Medication Compliance: Yes Side effects from medications: No Attending Groups: Yes Review of Systems Acute medical concerns: No Medical Review of Systems: unchanged Review of Systems Review of Systems Yes all other systems are reviewed and are negative Mental Status Exam Mental Status Exam Patient Appearance: Appropriate Patient Orientation: Person, Place, Time and Situation Level of Consciousness: Alert Patient Behavior: Talkative, Cooperative and Good Eye Contact Mood Description: Depressed and Anxious Affect Description: Anxious and Flat Patient Cognition Impaired: No Ability to Follow Directions: Good Speech Pattern: Spontaneous Speech Memory Description: Intact Hallucinations: None Perceptual Disturbances: Depersonalization and Derealization Thought Process: Distracted and Rumination Thought Content: positive for Perseveration and positive for Suicidal Ideation (denies) Judgement: Good Diagnostics Vital Signs (24Hr): Vital Signs - 24 hr 04/12/24 20:00 04/13/24 08:00 Temperature 96.7 F L 98.2 F Pulse Rate 88 100 Respiratory Rate 16 Blood Pressure 138/73 121/64 Pulse Oximetry 96 95 Oxygen Delivery Method Room Air Room Air BMI result Body Mass Index 21.4 Labs 04/13/24 08:00 04/13/24 08:00 Labs: Laboratory Results - last 48 hr 04/13/24 08:00 WBC 12.7 H RBC 3.84 L Hgb 13.0 Hct 38.7 MCV 100.8 H MCH 33.9 H MCHC 33.6 RDW 14.1 Plt Count 237 MPV 9.9 Immature Gran % (Auto) 0.3 Neut % (Auto) 53.3 Lymph % (Auto) 17.6 L Humphreys % (Auto) 11.1 H Eos % (Auto) 16.9 H Baso % (Auto) 0.8 Lymph # (Auto) 2.2 Humphreys # (Auto) 1.4 H Eos # (Auto) 2.2 H Baso # (Auto) 0.1 Abs Immat Gran (auto) 0.04 H Absolute Neuts (auto) 6.8 Absolute Nucleated RBC 0.000 Nucleated RBC % (auto) 0.0 Smear Tech's Comments VERIFIED Sodium 140 Potassium 4.7 D Chloride 110 H Carbon Dioxide 23 Anion Gap 12 BUN 45 H Creatinine 1.19 Estim Creat Clear Calc 42.9 Estimated GFR 46 Random Glucose 137 H Estimat Average Glucose 103 Hemoglobin A1c % 5.2 Calcium 10.3 H D Total Bilirubin 0.3 AST 39 H ALT 41 H Total Protein 7.3 Albumin 3.7 Triglycerides 85 Cholesterol 205 H LDL Cholesterol, Calc 79 HDL Cholesterol 109 Vitamin B12 590 Folate 16.3 TSH 2.09 Imaging Radiology Impressions: ITS Impressions KUB X-Ray 03/18/24 15:00 IMPRESSION: Moderate constipation. Electronically signed by: Jass Caldwell MD 03/18/2024 04:38 PM EST RP KUB X-Ray 03/23/24 09:46 IMPRESSION: Mild constipation. Electronically signed by: Jass Caldwell MD 03/24/2024 01:25 PM EST RP Medications Medications Current Medications Acetaminophen (Acetaminophen 325 Mg Tablet) 650 mg PO Q6H PRN PRN Reason: Pain 1-10 Last Admin: 04/12/24 21:11 Dose: 650 mg Al Hydroxide/Mg Hydroxide (Magnesium Hydrox/Alum Hydrox 30 Ml Oral.Susp) 30 ml PO Q6H PRN PRN Reason: Heartburn/Nausea Last Admin: 04/04/24 02:30 Dose: 30 ml Benzocaine (Throat Lozenge, Medicated Lozenge) 1 lozenge MUCOUS MEM Q2H PRN PRN Reason: Dry Throat Last Admin: 04/12/24 06:10 Dose: 1 lozenge Calcium Carbonate (Calcium Oyster Shell Elemental 500 Mg Tablet) 500 mg PO DAILY [facility] Last Admin: 04/13/24 08:33 Dose: 500 mg Calcium Carbonate (Calcium Carbonate 750 Mg Tab.Chew) 750 mg PO TID PRN PRN Reason: Indigestion Last Admin: 04/02/24 10:36 Dose: 750 mg Fluoxetine HCl (Fluoxetine Hcl 10 Mg Capsule) 10 mg PO DAILY [facility] Last Admin: 04/13/24 08:33 Dose: 10 mg Fluvoxamine Maleate (Fluvoxamine Maleate 50 Mg Tablet) 100 mg PO BEDTIME [facility] Last Admin: 04/12/24 21:11 Dose: 100 mg Fluvoxamine Maleate (Fluvoxamine Maleate 50 Mg Tablet) 100 mg PO DAILY [facility] Last Admin: 04/13/24 08:33 Dose: 100 mg Hydroxyzine HCl (Hydroxyzine Hcl 25 Mg Tablet) 25 mg PO Q6H PRN PRN Reason: anxiety mild Lamotrigine (Lamotrigine 100 Mg Tablet) 100 mg PO DAILY [facility] Last Admin: 04/13/24 08:33 Dose: 100 mg Levothyroxine Sodium (Levothyroxine Sodium 88 Mcg Tablet) 88 mcg PO DAILY@0600 [facility] Last Admin: 04/13/24 06:22 Dose: 88 mcg Loperamide HCl (Loperamide Hcl 2 Mg Capsule) 4 mg PO Q6H PRN PRN Reason: Diarrhea Lorazepam (Lorazepam 0.5 Mg Tablet) 0.5 mg PO BID PRN PRN Reason: Anxiety,severe Last Admin: 04/12/24 17:10 Dose: 0.5 mg Magnesium Hydroxide (Milk Of Magnesia 30 Ml Oral.Susp) 30 ml PO DAILY PRN PRN Reason: Constipation Last Admin: 04/04/24 16:21 Dose: 30 ml Meclizine HCl (Meclizine Hcl 12.5 Mg Tablet) 12.5 mg PO TID PRN PRN Reason: Dizziness Last Admin: 03/16/24 22:15 Dose: 12.5 mg Methylphenidate HCl (Methylphenidate Hcl 10 Mg Tablet) 20 mg PO TID@0700,1100,1500 [facility] Last Admin: 04/13/24 06:22 Dose: 20 mg Naproxen (Naproxen 500 Mg Tablet) 500 mg PO BID [facility] Last Admin: 04/13/24 08:33 Dose: 500 mg Nicotine Polacrilex (Nicotine Polacrilex 2 Mg Gum) 4 mg BUCCAL Q2H PRN PRN Reason: Nicotine Cravings Olanzapine (Olanzapine 5 Mg Tablet) 5 mg PO TID PRN PRN Reason: agitation Last Admin: 04/12/24 17:11 Dose: 5 mg Olanzapine (Olanzapine 5 Mg Tablet) 5 mg PO BID [facility] Last Admin: 04/13/24 08:33 Dose: 5 mg Polyethylene Glycol (Polyethylene Glycol 3350 17 Gm Powd.Pack) 17 gm PO DAILY [facility] Last Admin: 04/05/24 09:08 Dose: Not Given Saliva Substitute (Dry Mouth [place] 60 Ml [place]) 1 spray MUCOUS MEM Q2H PRN PRN Reason: dry throat Senna/Docusate Sodium (Sennosides/Docusate Sodium Tablet) 1 tab PO BID [facility] Last Admin: 04/05/24 09:09 Dose: Not Given Trazodone HCl (Trazodone Hcl 50 Mg Tablet) 50 mg PO BEDTIME MRX1 PRN PRN Reason: Insomnia Last Admin: 04/12/24 22:42 Dose: 50 mg Vitamin D (Cholecalciferol (Vitamin D3) 25 Mcg Tablet) 25 mcg PO DAILY [facility] Last Admin: 04/13/24 08:33 Dose: 25 mcg Allergies Allergies Allergy/AdvReac Type Severity Reaction Status Date / Time codeine Allergy Swelling Verified 03/10/24 14:55 Assessment & Plan Assessment & Plan (1) Recurrent major depression-severe: Qualifiers: Psychotic features: without psychotic features Qualified Code(s): F33.2 - Major depressive disorder, recurrent severe without psychotic features Status: Acute Code(s): F33.2 - Major depressive disorder, recurrent severe without psychotic features (2) PTSD (post-traumatic stress disorder): Status: Acute Code(s): F43.10 - Post-traumatic stress disorder, unspecified Plan PTSD, Recurrent Major Depression, OCD, Anorexia Nervosa,Binge Purge Type, Borderline Personality Disorder, Polysubstance use disorder-alcohol, cannabis, opiates, TBI. Hospital course: 03/05: continue current tx plan. 03/16/24-0ngoing depression with si - and complicating hx tbi and poor reactivity to medications- requires ongoing inpatient level of care 03/17/24 for now will continue current medications. added miralax and senakot for constipation. Consider ECT for severe refractory depression and suicidality. 03/18 continues to report constipation, no vomiting nor abdominal pain. Had head CT- microvascular changes and atrophy. no acute findings. more hopeless and tearful today but willing to get better and continue tx. consider ECT. 03/20/2024: No changes to current plan. 03/21 continue tx. may benefit from med changes, or even ECT, 03/24/24: Olanzapine 2.5 mg bid to address sx of anxiety, augment SSRI's 03/25/24: Continue tx 03/26 Patient initially reports that she is not doing any better however after more discussion and consideration of her behaviors, she agrees that she is feeling a little less depressed and a little less anxious and that she can tell because she is attending to her ADLs, showering, dressing herself well. She also says that she is actually starting to have hope that she will be able to get better. However she reports that her mood continues to fluctuate throughout the day and that SI thoughts come and go. She is afraid of discharge and getting suicidal when she leaves. -Discussed more of her history, symptoms,, trauma, bulimia, childhood experiences, medication trials. Patient says she has been on Prozac for over 30 years but has never really felt much benefit from it, even when it was at 80 mg. 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 She has been on 50 mg b.i.d. for few months. [employer] discussed the risk of serotonin syndrome and what to look out for but also discussed increasing this medication to which patient agreed. -increasing Luvox 100 mg q.h.s. -leave Prozac at 40 mg; will watch for serotonin syndrome; however if Luvox continues to be effective, may consider tapering and discontinuing Prozac since she says it has never been helpful 03/27 no change in presentation; tolerated increased Luvox; continue current regimen 03/28 continue discussion with pt/brother about guns in mother's home and visitation. 04/01 continue tx, increase luvox, pt is asked to give some consideration over the weekend to coping skills she has learned and can use in community when discharged. 04/03/2024: Continue current regimen and plans. Decrease Prozac to 20 mg 04/04/24: Increase Olanzapine to 5 mg bid. 04/05 continue tx. 04/06 continue tx 04/08 Continue regime/plan 04/10 Continue tx 04/12 Decrease Prozac to 10 mg daily Labs 04/13 Discharge 2/3 to cousins home Scheduled call with brother 04/14 10:30am 04/13 continue plan/tx Plan: CV, 15 minute checks -Continue Luvox 50 mg daily -INCREASE Luvox to 100mg qhs (patient said this medication has consistently been effective) -Continue Prozac 40 mg for now; patient says this medication has not been effective over the years; will consider tapering if Luvox proves effective enough -Continue current Lamictal dose for now Medical care/consult as needed. Pt has several issues not addressed --Neuro consult-recent falls, balance issues reported --Xrays R Ankle, Hip-reports significant pain Collateral contacts Continue current regime at this time-pt reports several trials-will talk with OP team prior to making changes. Aftercare/Discharge planning Reason for continued inpatient stay Substantial Risk for: rapid decompensation Time Spent With Patient Time: Total time managing care of this patient today ____ minutes.
[2024-04-13 11:05] LABS: Alkaline Phosphatase 183 U/L (39-117)
[2024-04-13] MEDS: Throat Lozenge, Medicated LOZENGE 1 LOZENGE MUCOUS MEM (15:30)
[2024-04-13 19:49] VITALS: BP 140/83; PULSE 78; TEMP 36.4; O2SAT 97
[2024-04-13] MEDS: LORazepam 0.5 MG TABLET PO (20:15)
[2024-04-13] MEDS: traZODone HCL 50 MG TABLET PO ×2 (21:02→22:38)
--- NOTE | 2024-04-14 05:30 | P.PNPSI_ITS ---
Subjective Subjective Date of Service: 04/14/24 Reason For Visit: depressed Subjective Notes: Conditional Voluntary Healthcare Proxy: No Guardianship: No Medical Problems Affecting Mental Status: No Interim History: Scheduled call with brother pt reports was positive. Call to cousin [place] however voice mail left. Pt continues on a plan for discharge on 04/18. Encouraged her to call her room-mate on 04/15. Medication Compliance: Yes Side effects from medications: No Attending Groups: Yes Review of Systems Acute medical concerns: No Medical Review of Systems: unchanged Review of Systems Review of Systems denies today Mental Status Exam Mental Status Exam Patient Appearance: Appropriate Patient Orientation: Person, Place, Time and Situation Level of Consciousness: Alert Patient Behavior: Talkative, Cooperative and Good Eye Contact Mood Description: Depressed and Anxious Affect Description: Anxious and Flat Patient Cognition Impaired: No Ability to Follow Directions: Good Speech Pattern: Spontaneous Speech Memory Description: Intact Hallucinations: None Perceptual Disturbances: Depersonalization and Derealization Thought Process: Distracted and Rumination Thought Content: positive for Perseveration and positive for Suicidal Ideation (denies) Judgement: Good Diagnostics Vital Signs (24Hr): Vital Signs - 24 hr 04/13/24 08:00 04/13/24 19:49 Temperature 98.2 F 97.6 F Pulse Rate 100 78 Respiratory Rate 16 Blood Pressure 121/64 140/83 H Pulse Oximetry 95 97 Oxygen Delivery Method Room Air Room Air BMI result Body Mass Index 21.4 Labs 04/13/24 08:00 04/13/24 08:00 Labs: Laboratory Results - last 48 hr 04/13/24 08:00 WBC 12.7 H RBC 3.84 L Hgb 13.0 Hct 38.7 MCV 100.8 H MCH 33.9 H MCHC 33.6 RDW 14.1 Plt Count 237 MPV 9.9 Immature Gran % (Auto) 0.3 Neut % (Auto) 53.3 Lymph % (Auto) 17.6 L [place] % (Auto) 11.1 H Eos % (Auto) 16.9 H Baso % (Auto) 0.8 Lymph # (Auto) 2.2 [place] # (Auto) 1.4 H Eos # (Auto) 2.2 H Baso # (Auto) 0.1 Abs Immat Gran (auto) 0.04 H Absolute Neuts (auto) 6.8 Absolute Nucleated RBC 0.000 Nucleated RBC % (auto) 0.0 Smear Tech's Comments VERIFIED Sodium 140 Potassium 4.7 D Chloride 110 H Carbon Dioxide 23 Anion Gap 12 BUN 45 H Creatinine 1.19 Estim Creat Clear Calc 42.9 Estimated GFR 46 Random Glucose 137 H Estimat Average Glucose 103 Hemoglobin A1c % 5.2 Calcium 10.3 H D Total Bilirubin 0.3 AST 39 H ALT 41 H Alkaline Phosphatase 183 H Total Protein 7.3 Albumin 3.7 Triglycerides 85 Cholesterol 205 H LDL Cholesterol, Calc 79 HDL Cholesterol 109 Vitamin B12 590 Folate 16.3 TSH 2.09 Imaging Radiology Impressions: ITS Impressions KUB X-Ray 03/18/24 15:00 IMPRESSION: Moderate constipation. Electronically signed by: Jass Caldwell MD 03/18/2024 04:38 PM EST RP KUB X-Ray 03/23/24 09:46 IMPRESSION: Mild constipation. Electronically signed by: Jass Caldwell MD 03/24/2024 01:25 PM EST RP Medications Medications Current Medications Acetaminophen (Acetaminophen 325 Mg Tablet) 650 mg PO Q6H PRN PRN Reason: Pain 1-10 Last Admin: 04/12/24 21:11 Dose: 650 mg Al Hydroxide/Mg Hydroxide (Magnesium Hydrox/Alum Hydrox 30 Ml Oral.Susp) 30 ml PO Q6H PRN PRN Reason: Heartburn/Nausea Last Admin: 04/04/24 02:30 Dose: 30 ml Benzocaine (Throat Lozenge, Medicated Lozenge) 1 lozenge MUCOUS MEM Q2H PRN PRN Reason: Dry Throat Last Admin: 04/13/24 15:30 Dose: 1 lozenge Calcium Carbonate (Calcium Oyster Shell Elemental 500 Mg Tablet) 500 mg PO DAILY [facility] Last Admin: 04/13/24 08:33 Dose: 500 mg Calcium Carbonate (Calcium Carbonate 750 Mg Tab.Chew) 750 mg PO TID PRN PRN Reason: Indigestion Last Admin: 04/02/24 10:36 Dose: 750 mg Fluoxetine HCl (Fluoxetine Hcl 10 Mg Capsule) 10 mg PO DAILY [facility] Last Admin: 04/13/24 08:33 Dose: 10 mg Fluvoxamine Maleate (Fluvoxamine Maleate 50 Mg Tablet) 100 mg PO BEDTIME [facility] Last Admin: 04/13/24 20:14 Dose: 100 mg Fluvoxamine Maleate (Fluvoxamine Maleate 50 Mg Tablet) 100 mg PO DAILY [facility] Last Admin: 04/13/24 08:33 Dose: 100 mg Hydroxyzine HCl (Hydroxyzine Hcl 25 Mg Tablet) 25 mg PO Q6H PRN PRN Reason: anxiety mild Lamotrigine (Lamotrigine 100 Mg Tablet) 100 mg PO DAILY [facility] Last Admin: 04/13/24 08:33 Dose: 100 mg Levothyroxine Sodium (Levothyroxine Sodium 88 Mcg Tablet) 88 mcg PO DAILY@0600 [facility] Last Admin: 04/13/24 06:22 Dose: 88 mcg Loperamide HCl (Loperamide Hcl 2 Mg Capsule) 4 mg PO Q6H PRN PRN Reason: Diarrhea Lorazepam (Lorazepam 0.5 Mg Tablet) 0.5 mg PO BID PRN PRN Reason: Anxiety,severe Last Admin: 04/13/24 20:15 Dose: 0.5 mg Magnesium Hydroxide (Milk Of Magnesia 30 Ml Oral.Susp) 30 ml PO DAILY PRN PRN Reason: Constipation Last Admin: 04/04/24 16:21 Dose: 30 ml Meclizine HCl (Meclizine Hcl 12.5 Mg Tablet) 12.5 mg PO TID PRN PRN Reason: Dizziness Last Admin: 03/16/24 22:15 Dose: 12.5 mg Methylphenidate HCl (Methylphenidate Hcl 10 Mg Tablet) 20 mg PO TID@0700,1100,1500 [facility] Last Admin: 04/13/24 15:30 Dose: 20 mg Naproxen (Naproxen 500 Mg Tablet) 500 mg PO BID [facility] Last Admin: 04/13/24 20:15 Dose: 500 mg Nicotine Polacrilex (Nicotine Polacrilex 2 Mg Gum) 4 mg BUCCAL Q2H PRN PRN Reason: Nicotine Cravings Olanzapine (Olanzapine 5 Mg Tablet) 5 mg PO TID PRN PRN Reason: agitation Last Admin: 04/13/24 11:17 Dose: 5 mg Olanzapine (Olanzapine 5 Mg Tablet) 5 mg PO BID [facility] Last Admin: 04/13/24 20:15 Dose: 5 mg Polyethylene Glycol (Polyethylene Glycol 3350 17 Gm Powd.Pack) 17 gm PO DAILY [facility] Last Admin: 04/05/24 09:08 Dose: Not Given Saliva Substitute (Dry Mouth Gustine 60 Ml Gustine) 1 spray MUCOUS MEM Q2H PRN PRN Reason: dry throat Senna/Docusate Sodium (Sennosides/Docusate Sodium Tablet) 1 tab PO BID [facility] Last Admin: 04/05/24 09:09 Dose: Not Given Trazodone HCl (Trazodone Hcl 50 Mg Tablet) 50 mg PO BEDTIME MRX1 PRN PRN Reason: Insomnia Last Admin: 04/13/24 22:38 Dose: 50 mg Vitamin D (Cholecalciferol (Vitamin D3) 25 Mcg Tablet) 25 mcg PO DAILY [facility] Last Admin: 04/13/24 08:33 Dose: 25 mcg Allergies Allergies Allergy/AdvReac Type Severity Reaction Status Date / Time codeine Allergy Swelling Verified 03/10/24 14:55 Assessment & Plan Assessment & Plan (1) Recurrent major depression-severe: Qualifiers: Psychotic features: without psychotic features Qualified Code(s): F33.2 - Major depressive disorder, recurrent severe without psychotic features Status: Acute Code(s): F33.2 - Major depressive disorder, recurrent severe without psychotic features (2) PTSD (post-traumatic stress disorder): Status: Acute Code(s): F43.10 - Post-traumatic stress disorder, unspecified Plan PTSD, Recurrent Major Depression, OCD, Anorexia Nervosa,Binge Purge Type, Borderline Personality Disorder, Polysubstance use disorder-alcohol, cannabis, opiates, TBI. Hospital course: 03/05: continue current tx plan. 03/16/24-0ngoing depression with si - and complicating hx tbi and poor reactivity to medications- requires ongoing inpatient level of care 03/17/24 for now will continue current medications. added miralax and senakot for constipation. Consider ECT for severe refractory depression and suicidality. 03/18 continues to report constipation, no vomiting nor abdominal pain. Had head CT- microvascular changes and atrophy. no acute findings. more hopeless and tearful today but willing to get better and continue tx. consider ECT. 03/20/2024: No changes to current plan. 03/21 continue tx. may benefit from med changes, or even ECT, 03/24/24: Olanzapine 2.5 mg bid to address sx of anxiety, augment SSRI's 03/25/24: Continue tx 03/26 Patient initially reports that she is not doing any better however after more discussion and consideration of her behaviors, she agrees that she is feeling a little less depressed and a little less anxious and that she can tell because she is attending to her ADLs, showering, dressing herself well. She also says that she is actually starting to have hope that she will be able to get better. However she reports that her mood continues to fluctuate throughout the day and that SI thoughts come and go. She is afraid of discharge and getting suicidal when she leaves. -Discussed more of her history, symptoms,, trauma, bulimia, childhood experiences, medication trials. Patient says she has been on Prozac for over 30 years but has never really felt much benefit from it, even when it was at 80 mg. However when she was 1st started on Luvox about a year ago, she noticed improvement underwriter way; noticed further improvement when it was increased. She has been on 50 mg b.i.d. for few months. Transmission Systems Operator discussed the risk of serotonin syndrome and what to look out for but also discussed increasing this medication to which patient agreed. -increasing Luvox 100 mg q.h.s. -leave Prozac at 40 mg; will watch for serotonin syndrome; however if Luvox continues to be effective, may consider tapering and discontinuing Prozac since she says it has never been helpful 03/27 no change in presentation; tolerated increased Luvox; continue current regimen 03/28 continue discussion with pt/brother about guns in mother's home and visitation. 04/01 continue tx, increase luvox, pt is asked to give some consideration over the weekend to coping skills she has learned and can use in community when discharged. 04/03/2024: Continue current regimen and plans. Decrease Prozac to 20 mg 04/04/24: Increase Olanzapine to 5 mg bid. 04/05 continue tx. 04/06 continue tx 04/08 Continue regime/plan 04/10 Continue tx 04/12 Decrease Prozac to 10 mg daily Labs 04/13 Discharge 2/3 to cousins home Scheduled call with brother 04/14 10:30am 04/14-continue plan Plan: CV, 15 minute checks -Continue Luvox 50 mg daily -INCREASE Luvox to 100mg qhs (patient said this medication has consistently been effective) -Continue Prozac 40 mg for now; patient says this medication has not been effective over the years; will consider tapering if Luvox proves effective enough -Continue current Lamictal dose for now Medical care/consult as needed. Pt has several issues not addressed --Neuro consult-recent falls, balance issues reported --Xrays R Ankle, Hip-reports significant pain Collateral contacts Continue current regime at this time-pt reports several trials-will talk with OP team prior to making changes. Aftercare/Discharge planning Reason for continued inpatient stay Substantial Risk for: rapid decompensation Time Spent With Patient Time: Total time managing care of this patient today ____ minutes.
[2024-04-14] MEDS: Methylphenidate HCl 10 MG TABLET 20 MG PO ×3 (06:07→15:30)
[2024-04-14] MEDS: Levothyroxine Sodium 88 MCG TABLET PO (06:07)
[2024-04-14 08:19] VITALS: BP 131/74; PULSE 86; TEMP 36.7; O2SAT 98
[2024-04-14] MEDS: FLUoxetine HCl 10 MG CAPSULE PO (08:45)
[2024-04-14] MEDS: NaPROXEN 500 MG TABLET PO ×2 (08:45→20:46)
[2024-04-14] MEDS: OLANZapine 5 MG TABLET PO ×4 (08:46→20:45)
[2024-04-14] MEDS: fluvoxaMINE Maleate 50 MG TABLET 100 MG PO ×2 (08:46→20:45)
[2024-04-14] MEDS: Calcium Oyster Shell Elemental 500 MG TABLET PO (08:46)
[2024-04-14] MEDS: lamoTRIgine 100 MG TABLET PO (08:46)
[2024-04-14] MEDS: Cholecalciferol (Vitamin D3) 25 MCG TABLET PO (08:46)
[2024-04-14] MEDS: Throat Lozenge, Medicated LOZENGE 1 LOZENGE MUCOUS MEM (10:04)
[2024-04-14] MEDS: LORazepam 0.5 MG TABLET PO ×2 (10:04→20:45)
[2024-04-14 19:48] VITALS: BP 141/86; PULSE 94; TEMP 36.2; O2SAT 98
[2024-04-14] MEDS: traZODone HCL 50 MG TABLET PO (20:45)
[2024-04-15] MEDS: Methylphenidate HCl 10 MG TABLET 20 MG PO ×3 (06:18→15:00)
[2024-04-15] MEDS: Levothyroxine Sodium 88 MCG TABLET PO (06:18)
[2024-04-15 08:00] VITALS: BP 136/68; PULSE 78; TEMP 36.6; O2SAT 96
[2024-04-15] MEDS: Acetaminophen 325 MG TABLET 650 MG PO (08:45)
[2024-04-15] MEDS: lamoTRIgine 100 MG TABLET PO (08:46)
[2024-04-15] MEDS: fluvoxaMINE Maleate 50 MG TABLET 100 MG PO ×2 (08:46→21:12)
[2024-04-15] MEDS: Calcium Oyster Shell Elemental 500 MG TABLET PO (08:46)
[2024-04-15] MEDS: NaPROXEN 500 MG TABLET PO ×2 (08:46→21:13)
[2024-04-15] MEDS: FLUoxetine HCl 10 MG CAPSULE PO (08:46)
[2024-04-15] MEDS: Cholecalciferol (Vitamin D3) 25 MCG TABLET PO (08:47)
[2024-04-15] MEDS: OLANZapine 5 MG TABLET PO ×3 (08:56→21:12)
[2024-04-15] MEDS: LORazepam 0.5 MG TABLET PO ×2 (17:11→21:23)
--- NOTE | 2024-04-15 18:29 | HO.PSYCHPN ---
Subjective Subjective Date of Service: 04/15/24 Reason For Visit: depressed Interim History: met with pt; discussed with team pt says she's doing pretty good and expressed deep gratitude for help received during admission. Says first time she's been hopeful in a very long time. No SI at all; plans to go to cousins house with whom she is close. Mental Status Exam Mental Status Exam Narrative: Pt is alert and oriented; behavior is cooperative, friendly and calm; patient is not in distress; dressed in casual attire with hat on; well groomed; good hygiene; mood is described as pretty good and affect congruent, bright, calm; eye contact appropriate; Speech is verbose but not pressured; normal rate, volume and prosody; no psychomotor agitation/retardation present; thought process is organized and goal directed; Thought content is on tx, discharge; otherwise pertinent to relevant topics and without any delusional content, paranoid ideations or grandiosity; denies any SI/HI. No AVH. Patients insight and judgment appear intact. Diagnostics Vital Signs (24Hr): Vital Signs - 24 hr 04/14/24 19:48 Temperature 97.2 F Pulse Rate 94 Blood Pressure 141/86 H Pulse Oximetry 98 Oxygen Delivery Method Room Air BMI result Body Mass Index 21.4 Labs 04/13/24 08:00 04/13/24 08:00 Imaging Radiology Impressions: ITS Impressions KUB X-Ray 03/18/24 15:00 IMPRESSION: Moderate constipation. Electronically signed by: Jass Caldwell MD 03/18/2024 04:38 PM EST RP KUB X-Ray 03/23/24 09:46 IMPRESSION: Mild constipation. Electronically signed by: Jass Caldwell MD 03/24/2024 01:25 PM EST RP Medications Medications Current Medications Acetaminophen (Acetaminophen 325 Mg Tablet) 650 mg PO Q6H PRN PRN Reason: Pain 1-10 Last Admin: 04/15/24 08:45 Dose: 650 mg Al Hydroxide/Mg Hydroxide (Magnesium Hydrox/Alum Hydrox 30 Ml Oral.Susp) 30 ml PO Q6H PRN PRN Reason: Heartburn/Nausea Last Admin: 04/04/24 02:30 Dose: 30 ml Benzocaine (Throat Lozenge, Medicated Lozenge) 1 lozenge MUCOUS MEM Q2H PRN PRN Reason: Dry Throat Last Admin: 04/14/24 10:04 Dose: 1 lozenge Calcium Carbonate (Calcium Oyster Shell Elemental 500 Mg Tablet) 500 mg PO DAILY [facility] Last Admin: 04/15/24 08:46 Dose: 500 mg Calcium Carbonate (Calcium Carbonate 750 Mg Tab.Chew) 750 mg PO TID PRN PRN Reason: Indigestion Last Admin: 04/02/24 10:36 Dose: 750 mg Fluoxetine HCl (Fluoxetine Hcl 10 Mg Capsule) 10 mg PO DAILY [facility] Last Admin: 04/15/24 08:46 Dose: 10 mg Fluvoxamine Maleate (Fluvoxamine Maleate 50 Mg Tablet) 100 mg PO BEDTIME [facility] Last Admin: 04/14/24 20:45 Dose: 100 mg Fluvoxamine Maleate (Fluvoxamine Maleate 50 Mg Tablet) 100 mg PO DAILY [facility] Last Admin: 04/15/24 08:46 Dose: 100 mg Hydroxyzine HCl (Hydroxyzine Hcl 25 Mg Tablet) 25 mg PO Q6H PRN PRN Reason: anxiety mild Lamotrigine (Lamotrigine 100 Mg Tablet) 100 mg PO DAILY [facility] Last Admin: 04/15/24 08:46 Dose: 100 mg Levothyroxine Sodium (Levothyroxine Sodium 88 Mcg Tablet) 88 mcg PO DAILY@0600 [facility] Last Admin: 04/15/24 06:18 Dose: 88 mcg Loperamide HCl (Loperamide Hcl 2 Mg Capsule) 4 mg PO Q6H PRN PRN Reason: Diarrhea Lorazepam (Lorazepam 0.5 Mg Tablet) 0.5 mg PO BID PRN PRN Reason: Anxiety,severe Last Admin: 04/15/24 17:11 Dose: 0.5 mg Magnesium Hydroxide (Milk Of Magnesia 30 Ml Oral.Susp) 30 ml PO DAILY PRN PRN Reason: Constipation Last Admin: 04/04/24 16:21 Dose: 30 ml Meclizine HCl (Meclizine Hcl 12.5 Mg Tablet) 12.5 mg PO TID PRN PRN Reason: Dizziness Last Admin: 03/16/24 22:15 Dose: 12.5 mg Methylphenidate HCl (Methylphenidate Hcl 10 Mg Tablet) 20 mg PO TID@0700,1100,1500 [facility] Last Admin: 04/15/24 15:00 Dose: 20 mg Naproxen (Naproxen 500 Mg Tablet) 500 mg PO BID [facility] Last Admin: 04/15/24 08:46 Dose: 500 mg Nicotine Polacrilex (Nicotine Polacrilex 2 Mg Gum) 4 mg BUCCAL Q2H PRN PRN Reason: Nicotine Cravings Olanzapine (Olanzapine 5 Mg Tablet) 5 mg PO TID PRN PRN Reason: agitation Last Admin: 04/15/24 15:47 Dose: 5 mg Olanzapine (Olanzapine 5 Mg Tablet) 5 mg PO BID [facility] Last Admin: 04/15/24 08:56 Dose: 5 mg Polyethylene Glycol (Polyethylene Glycol 3350 17 Gm Powd.Pack) 17 gm PO DAILY [facility] Last Admin: 04/05/24 09:08 Dose: Not Given Saliva Substitute (Dry Mouth [place] 60 Ml [place]) 1 spray MUCOUS MEM Q2H PRN PRN Reason: dry throat Senna/Docusate Sodium (Sennosides/Docusate Sodium Tablet) 1 tab PO BID [facility] Last Admin: 04/05/24 09:09 Dose: Not Given Trazodone HCl (Trazodone Hcl 50 Mg Tablet) 50 mg PO BEDTIME MRX1 PRN PRN Reason: Insomnia Last Admin: 04/14/24 20:45 Dose: 50 mg Vitamin D (Cholecalciferol (Vitamin D3) 25 Mcg Tablet) 25 mcg PO DAILY [facility] Last Admin: 04/15/24 08:47 Dose: 25 mcg Allergies Allergies Allergy/AdvReac Type Severity Reaction Status Date / Time codeine Allergy Swelling Verified 03/10/24 14:55 Assessment & Plan Assessment & Plan (1) Recurrent major depression-severe: Qualifiers: Psychotic features: without psychotic features Qualified Code(s): F33.2 - Major depressive disorder, recurrent severe without psychotic features Status: Acute Code(s): F33.2 - Major depressive disorder, recurrent severe without psychotic features (2) PTSD (post-traumatic stress disorder): Status: Acute Code(s): F43.10 - Post-traumatic stress disorder, unspecified Plan PTSD, Recurrent Major Depression, OCD, Anorexia Nervosa,Binge Purge Type, Borderline Personality Disorder, Polysubstance use disorder-alcohol, cannabis, opiates, TBI. Hospital course: 03/05: continue current tx plan. 03/16/24-0ngoing depression with si - and complicating hx tbi and poor reactivity to medications- requires ongoing inpatient level of care 03/17/24 for now will continue current medications. added miralax and senakot for constipation. Consider ECT for severe refractory depression and suicidality. 03/18 continues to report constipation, no vomiting nor abdominal pain. Had head CT- microvascular changes and atrophy. no acute findings. more hopeless and tearful today but willing to get better and continue tx. consider ECT. 03/20/2024: No changes to current plan. 03/21 continue tx. may benefit from med changes, or even ECT, 03/24/24: Olanzapine 2.5 mg bid to address sx of anxiety, augment SSRI's 03/25/24: Continue tx 03/26 Patient initially reports that she is not doing any better however after more discussion and consideration of her behaviors, she agrees that she is feeling a little less depressed and a little less anxious and that she can tell because she is attending to her ADLs, showering, dressing herself well. She also says that she is actually starting to have hope that she will be able to get better. However she reports that her mood continues to fluctuate throughout the day and that SI thoughts come and go. She is afraid of discharge and getting suicidal when she leaves. -Discussed more of her history, symptoms,, trauma, bulimia, childhood experiences, medication trials. Patient says she has been on Prozac for over 30 years but has never really felt much benefit from it, even when it was at 80 mg. However when she was 1st started on Luvox about a year ago, she noticed improvement marketing writer way; noticed further improvement when it was increased. She has been on 50 mg b.i.d. for few months. Golf Club Maker discussed the risk of serotonin syndrome and what to look out for but also discussed increasing this medication to which patient agreed. -increasing Luvox 100 mg q.h.s. -leave Prozac at 40 mg; will watch for serotonin syndrome; however if Luvox continues to be effective, may consider tapering and discontinuing Prozac since she says it has never been helpful 03/27 no change in presentation; tolerated increased Luvox; continue current regimen 03/28 continue discussion with pt/brother about guns in mother's home and visitation. 04/01 continue tx, increase luvox, pt is asked to give some consideration over the weekend to coping skills she has learned and can use in community when discharged. 04/03/2024: Continue current regimen and plans. Decrease Prozac to 20 mg 04/04/24: Increase Olanzapine to 5 mg bid. 04/05 continue tx. 04/06 continue tx 04/08 Continue regime/plan 04/10 Continue tx 04/12 Decrease Prozac to 10 mg daily Labs 04/13 Discharge 04/18 to cousins home Scheduled call with brother 04/14 10:30am 04/14-continue plan 04/15 remains doing well and looking forward to discharge thursday Plan: CV, 15 minute checks -Continue Luvox 50 mg daily -INCREASE Luvox to 100mg qhs (patient said this medication has consistently been effective) -Continue Prozac 40 mg for now; patient says this medication has not been effective over the years; will consider tapering if Luvox proves effective enough -Continue current Lamictal dose for now Medical care/consult as needed. Pt has several issues not addressed --Neuro consult-recent falls, balance issues reported --Xrays R Ankle, Hip-reports significant pain Collateral contacts Continue current regime at this time-pt reports several trials-will talk with OP team prior to making changes. Aftercare/Discharge planning Patient educated on: diagnosis, medication risk/benefits and therapeutic strategies Informed Consent: understands Reason for continued inpatient stay Substantial Risk for: stable for discharge Time Spent With Patient Time: Total time managing care of this patient today ____ minutes.
[2024-04-15 20:00] VITALS: BP 120/68; PULSE 95; TEMP 36.4; O2SAT 95
[2024-04-15] MEDS: traZODone HCL 50 MG TABLET PO ×2 (21:13→23:19)
[2024-04-15] MEDS: Throat Lozenge, Medicated LOZENGE 1 LOZENGE MUCOUS MEM (21:24)
[2024-04-16] MEDS: Levothyroxine Sodium 88 MCG TABLET PO (07:37)
[2024-04-16] MEDS: Methylphenidate HCl 10 MG TABLET 20 MG PO ×3 (07:37→14:28)
[2024-04-16 08:00] VITALS: BP 142/83; PULSE 95; RESP 18; TEMP 36.5; O2SAT 97
[2024-04-16] MEDS: fluvoxaMINE Maleate 50 MG TABLET 100 MG PO ×2 (08:35→21:12)
[2024-04-16] MEDS: FLUoxetine HCl 10 MG CAPSULE PO (08:35)
[2024-04-16] MEDS: OLANZapine 5 MG TABLET PO ×4 (08:36→21:12)
[2024-04-16] MEDS: NaPROXEN 500 MG TABLET PO ×2 (08:37→21:12)
[2024-04-16] MEDS: Cholecalciferol (Vitamin D3) 25 MCG TABLET PO (08:37)
[2024-04-16] MEDS: lamoTRIgine 100 MG TABLET PO (08:37)
[2024-04-16] MEDS: Calcium Oyster Shell Elemental 500 MG TABLET PO (08:37)
--- NOTE | 2024-04-16 08:49 | P.PNPSI_ITS ---
Subjective Subjective Date of Service: 04/16/24 Reason For Visit: depressed Subjective Notes: Conditional Voluntary Interim History: Met patient. Discussed with team. Overall feeling very thankful around care. Much less anxious and depressed. Feeling hopeful. Feeling supported around discharge planning. Thankful around medication regimen. Energy and appetite good. Has enjoyed the groups. Looking forward to discharging after the weekend Medication Compliance: Yes Side effects from medications: No Attending Groups: Yes Review of Systems Acute medical concerns: No Mental Status Exam Mental Status Exam Narrative: Pt is alert and oriented; behavior is cooperative, friendly and calm; patient is not in distress; dressed in casual attire with hat on; well groomed; good hygiene; mood is described as good and affect congruent, bright, calm; eye contact appropriate; Speech is verbose but not pressured; normal rate, volume and prosody; no psychomotor agitation/retardation present; thought process is organized and goal directed; Thought content is on tx, discharge; otherwise pertinent to relevant topics and without any delusional content, paranoid ideations or grandiosity; denies any SI/HI. No AVH. Patients insight and judgment appear intact. Diagnostics Vital Signs (24Hr): Vital Signs - 24 hr 04/15/24 20:00 04/16/24 08:00 Temperature 97.6 F 97.7 F Pulse Rate 95 95 Respiratory Rate 18 Blood Pressure 120/68 142/83 H Pulse Oximetry 95 97 Oxygen Delivery Method Room Air Room Air BMI result Body Mass Index 21.4 Labs 04/13/24 08:00 04/13/24 08:00 Imaging Radiology Impressions: ITS Impressions [facility] X-Ray 03/18/24 15:00 IMPRESSION: Moderate constipation. Electronically signed by: Jass Caldwell MD 03/18/2024 04:38 PM EST RP [facility] X-Ray 03/23/24 09:46 IMPRESSION: Mild constipation. Electronically signed by: Jass Caldwell MD 03/24/2024 01:25 PM EST RP Medications Medications Current Medications Acetaminophen (Acetaminophen 325 Mg Tablet) 650 mg PO Q6H PRN PRN Reason: Pain 1-10 Last Admin: 04/15/24 08:45 Dose: 650 mg Al Hydroxide/Mg Hydroxide (Magnesium Hydrox/Alum Hydrox 30 Ml Oral.Susp) 30 ml PO Q6H PRN PRN Reason: Heartburn/Nausea Last Admin: 04/04/24 02:30 Dose: 30 ml Benzocaine (Throat Lozenge, Medicated Lozenge) 1 lozenge MUCOUS MEM Q2H PRN PRN Reason: Dry Throat Last Admin: 04/15/24 21:24 Dose: 1 lozenge Calcium Carbonate (Calcium Oyster Shell Elemental 500 Mg Tablet) 500 mg PO DAILY [facility] Last Admin: 04/16/24 08:37 Dose: 500 mg Calcium Carbonate (Calcium Carbonate 750 Mg Tab.Chew) 750 mg PO TID PRN PRN Reason: Indigestion Last Admin: 04/02/24 10:36 Dose: 750 mg Fluoxetine HCl (Fluoxetine Hcl 10 Mg Capsule) 10 mg PO DAILY [facility] Last Admin: 04/16/24 08:35 Dose: 10 mg Fluvoxamine Maleate (Fluvoxamine Maleate 50 Mg Tablet) 100 mg PO BEDTIME [facility] Last Admin: 04/15/24 21:12 Dose: 100 mg Fluvoxamine Maleate (Fluvoxamine Maleate 50 Mg Tablet) 100 mg PO DAILY [facility] Last Admin: 04/16/24 08:35 Dose: 100 mg Hydroxyzine HCl (Hydroxyzine Hcl 25 Mg Tablet) 25 mg PO Q6H PRN PRN Reason: anxiety mild Lamotrigine (Lamotrigine 100 Mg Tablet) 100 mg PO DAILY [facility] Last Admin: 04/16/24 08:37 Dose: 100 mg Levothyroxine Sodium (Levothyroxine Sodium 88 Mcg Tablet) 88 mcg PO DAILY@0600 [facility] Last Admin: 04/16/24 07:37 Dose: 88 mcg Loperamide HCl (Loperamide Hcl 2 Mg Capsule) 4 mg PO Q6H PRN PRN Reason: Diarrhea Lorazepam (Lorazepam 0.5 Mg Tablet) 0.5 mg PO BID PRN PRN Reason: Anxiety,severe Last Admin: 04/15/24 21:23 Dose: 0.5 mg Magnesium Hydroxide (Milk Of Magnesia 30 Ml Oral.Susp) 30 ml PO DAILY PRN PRN Reason: Constipation Last Admin: 04/04/24 16:21 Dose: 30 ml Meclizine HCl (Meclizine Hcl 12.5 Mg Tablet) 12.5 mg PO TID PRN PRN Reason: Dizziness Last Admin: 03/16/24 22:15 Dose: 12.5 mg Methylphenidate HCl (Methylphenidate Hcl 10 Mg Tablet) 20 mg PO TID@0700,1100,1500 [facility] Last Admin: 04/16/24 07:37 Dose: 20 mg Naproxen (Naproxen 500 Mg Tablet) 500 mg PO BID [facility] Last Admin: 04/16/24 08:37 Dose: 500 mg Nicotine Polacrilex (Nicotine Polacrilex 2 Mg Gum) 4 mg BUCCAL Q2H PRN PRN Reason: Nicotine Cravings Olanzapine (Olanzapine 5 Mg Tablet) 5 mg PO TID PRN PRN Reason: agitation Last Admin: 04/15/24 15:47 Dose: 5 mg Olanzapine (Olanzapine 5 Mg Tablet) 5 mg PO BID [facility] Last Admin: 04/16/24 08:36 Dose: 5 mg Polyethylene Glycol (Polyethylene Glycol 3350 17 Gm Powd.Pack) 17 gm PO DAILY [facility] Last Admin: 04/05/24 09:08 Dose: Not Given Saliva Substitute (Dry Mouth [place] 60 Ml [place]) 1 spray MUCOUS MEM Q2H PRN PRN Reason: dry throat Senna/Docusate Sodium (Sennosides/Docusate Sodium Tablet) 1 tab PO BID [facility] Last Admin: 04/05/24 09:09 Dose: Not Given Trazodone HCl (Trazodone Hcl 50 Mg Tablet) 50 mg PO BEDTIME MRX1 PRN PRN Reason: Insomnia Last Admin: 04/15/24 23:19 Dose: 50 mg Vitamin D (Cholecalciferol (Vitamin D3) 25 Mcg Tablet) 25 mcg PO DAILY [facility] Last Admin: 04/16/24 08:37 Dose: 25 mcg Allergies Allergies Allergy/AdvReac Type Severity Reaction Status Date / Time codeine Allergy Swelling Verified 03/10/24 14:55 Assessment & Plan Assessment & Plan (1) Recurrent major depression-severe: Qualifiers: Psychotic features: without psychotic features Qualified Code(s): F33.2 - Major depressive disorder, recurrent severe without psychotic features Status: Acute Code(s): F33.2 - Major depressive disorder, recurrent severe without psychotic features (2) PTSD (post-traumatic stress disorder): Status: Acute Code(s): F43.10 - Post-traumatic stress disorder, unspecified Plan PTSD, Recurrent Major Depression, OCD, Anorexia Nervosa,Binge Purge Type, Borderline Personality Disorder, Polysubstance use disorder-alcohol, cannabis, opiates, TBI. Hospital course: 03/05: continue current tx plan. 03/16/24-0ngoing depression with si - and complicating hx tbi and poor reactivity to medications- requires ongoing inpatient level of care 03/17/24 for now will continue current medications. added miralax and senakot for constipation. Consider ECT for severe refractory depression and suicidality. 03/18 continues to report constipation, no vomiting nor abdominal pain. Had head CT- microvascular changes and atrophy. no acute findings. more hopeless and tearful today but willing to get better and continue tx. consider ECT. 03/20/2024: No changes to current plan. 03/21 continue tx. may benefit from med changes, or even ECT, 03/24/24: Olanzapine 2.5 mg bid to address sx of anxiety, augment SSRI's 03/25/24: Continue tx 03/26 Patient initially reports that she is not doing any better however after more discussion and consideration of her behaviors, she agrees that she is feeling a little less depressed and a little less anxious and that she can tell because she is attending to her ADLs, showering, dressing herself well. She also says that she is actually starting to have hope that she will be able to get better. However she reports that her mood continues to fluctuate throughout the day and that SI thoughts come and go. She is afraid of discharge and getting suicidal when she leaves. -Discussed more of her history, symptoms,, trauma, bulimia, childhood experiences, medication trials. Patient says she has been on Prozac for over 30 years but has never really felt much benefit from it, even when it was at 80 mg. 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 She has been on 50 mg b.i.d. for few months. Project Landscape Architect discussed the risk of serotonin syndrome and what to look out for but also discussed increasing this medication to which patient agreed. -increasing Luvox 100 mg q.h.s. -leave Prozac at 40 mg; will watch for serotonin syndrome; however if Luvox continues to be effective, may consider tapering and discontinuing Prozac since she says it has never been helpful 03/27 no change in presentation; tolerated increased Luvox; continue current regimen 03/28 continue discussion with pt/brother about guns in mother's home and visitation. 04/01 continue tx, increase luvox, pt is asked to give some consideration over the weekend to coping skills she has learned and can use in community when discharged. 04/03/2024: Continue current regimen and plans. Decrease Prozac to 20 mg 04/04/24: Increase Olanzapine to 5 mg bid. 04/05 continue tx. 04/06 continue tx 04/08 Continue regime/plan 04/10 Continue tx 04/12 Decrease Prozac to 10 mg daily Labs 04/13 Discharge 04/18 to cousins home Scheduled call with brother 04/14 10:30am 04/14-continue plan 04/16: No changes Plan: CV, 15 minute checks -Continue Luvox 50 mg daily -INCREASE Luvox to 100mg qhs (patient said this medication has consistently been effective) -Continue Prozac 40 mg for now; patient says this medication has not been effective over the years; will consider tapering if Luvox proves effective enough -Continue current Lamictal dose for now Medical care/consult as needed. Pt has several issues not addressed --Neuro consult-recent falls, balance issues reported --Xrays R Ankle, Hip-reports significant pain Collateral contacts Continue current regime at this time-pt reports several trials-will talk with OP team prior to making changes. Aftercare/Discharge planning Reason for continued inpatient stay Substantial Risk for: rapid decompensation Time Spent With Patient Time: Total time managing care of this patient today ____ minutes.
[2024-04-16] MEDS: LORazepam 0.5 MG TABLET PO ×2 (19:22→23:51)
[2024-04-16 20:00] VITALS: BP 140/87; PULSE 99; TEMP 36.1; O2SAT 96
[2024-04-16] MEDS: Throat Lozenge, Medicated LOZENGE 1 LOZENGE MUCOUS MEM (23:54)
[2024-04-17] MEDS: Levothyroxine Sodium 88 MCG TABLET PO (05:55)
[2024-04-17] MEDS: Methylphenidate HCl 10 MG TABLET 20 MG PO ×3 (06:56→14:55)
[2024-04-17 08:00] VITALS: BP 113/61; PULSE 86; RESP 18; TEMP 36.9; O2SAT 96
[2024-04-17] MEDS: fluvoxaMINE Maleate 50 MG TABLET 100 MG PO ×2 (08:06→21:07)
[2024-04-17] MEDS: NaPROXEN 500 MG TABLET PO ×2 (08:06→21:07)
[2024-04-17] MEDS: FLUoxetine HCl 10 MG CAPSULE PO (08:06)
[2024-04-17] MEDS: lamoTRIgine 100 MG TABLET PO (08:07)
[2024-04-17] MEDS: Calcium Oyster Shell Elemental 500 MG TABLET PO (08:07)
[2024-04-17] MEDS: Cholecalciferol (Vitamin D3) 25 MCG TABLET PO (08:08)
[2024-04-17] MEDS: OLANZapine 5 MG TABLET PO ×3 (08:08→21:08)
--- NOTE | 2024-04-17 09:36 | HO.PSYCHPN ---
Subjective Subjective Date of Service: 04/17/24 Reason For Visit: depressed Interim History: Met patient. Discussed with team. Overall feeling well and looking forward to discharge. Proud around art work and how much progress she has made. Very thankful around care. Not anxious and depressed. Feeling hopeful. Energy and appetite good. Has enjoyed the groups. Medication Compliance: Yes Side effects from medications: No Attending Groups: Yes Review of Systems Review of Systems denies today Yes all other systems are reviewed and are negative Constitutional: Reports as per HPI Eyes: Reports as per HPI Reports as per HPI Cardiovascular: Reports as per HPI Respiratory: Reports as per HPI Gastrointestinal: Reports as per HPI Musculoskeletal: Reports as per HPI Skin/Breast: Reports as per HPI Reports as per HPI Psychiatric: Reports as per HPI Endocrine: Reports as per HPI Hematologic/Lymphatic: Reports as per HPI Allergic/Immunologic: Reports as per HPI Mental Status Exam Mental Status Exam Narrative: Pt is alert and oriented; behavior is cooperative, friendly and calm; patient is not in distress; dressed in casual attire with hat on; well groomed; good hygiene; mood is described as good and affect congruent, bright, calm; eye contact appropriate; Speech is verbose but not pressured; normal rate, volume and prosody; no psychomotor agitation/retardation present; thought process is organized and goal directed; Thought content is on tx, discharge; otherwise pertinent to relevant topics and without any delusional content, paranoid ideations or grandiosity; denies any SI/HI. No AVH. Patients insight and judgment appear intact. Diagnostics Vital Signs (24Hr): Vital Signs - 24 hr 04/16/24 20:00 04/17/24 08:00 Temperature 96.9 F 98.5 F Pulse Rate 99 86 Respiratory Rate 18 Blood Pressure 140/87 H 113/61 Pulse Oximetry 96 96 Oxygen Delivery Method Room Air Room Air BMI result Body Mass Index 21.4 Labs 04/13/24 08:00 04/13/24 08:00 Imaging Radiology Impressions: ITS Impressions [facility] X-Ray 03/18/24 15:00 IMPRESSION: Moderate constipation. Electronically signed by: Jass Caldwell MD 03/18/2024 04:38 PM [facility] 03/23/24 09:46 IMPRESSION: Mild constipation. Electronically signed by: Jass Caldwell MD 03/24/2024 01:25 PM [facility] Medications Medications Current Medications Acetaminophen (Acetaminophen 325 Mg Tablet) 650 mg PO Q6H PRN PRN Reason: Pain 1-10 Last Admin: 04/15/24 08:45 Dose: 650 mg Al Hydroxide/Mg Hydroxide (Magnesium Hydrox/Alum Hydrox 30 Ml Oral.Susp) 30 ml PO Q6H PRN PRN Reason: Heartburn/Nausea Last Admin: 04/04/24 02:30 Dose: 30 ml Benzocaine (Throat Lozenge, Medicated Lozenge) 1 lozenge MUCOUS MEM Q2H PRN PRN Reason: Dry Throat Last Admin: 04/16/24 23:54 Dose: 1 lozenge Calcium Carbonate (Calcium Oyster Shell Elemental 500 Mg Tablet) 500 mg PO DAILY [facility] Last Admin: 04/17/24 08:07 Dose: 500 mg Calcium Carbonate (Calcium Carbonate 750 Mg Tab.Chew) 750 mg PO TID PRN PRN Reason: Indigestion Last Admin: 04/02/24 10:36 Dose: 750 mg Fluoxetine HCl (Fluoxetine Hcl 10 Mg Capsule) 10 mg PO DAILY [facility] Last Admin: 04/17/24 08:06 Dose: 10 mg Fluvoxamine Maleate (Fluvoxamine Maleate 50 Mg Tablet) 100 mg PO BEDTIME [facility] Last Admin: 04/16/24 21:12 Dose: 100 mg Fluvoxamine Maleate (Fluvoxamine Maleate 50 Mg Tablet) 100 mg PO DAILY [facility] Last Admin: 04/17/24 08:06 Dose: 100 mg Hydroxyzine HCl (Hydroxyzine Hcl 25 Mg Tablet) 25 mg PO Q6H PRN PRN Reason: anxiety mild Lamotrigine (Lamotrigine 100 Mg Tablet) 100 mg PO DAILY [facility] Last Admin: 04/17/24 08:07 Dose: 100 mg Levothyroxine Sodium (Levothyroxine Sodium 88 Mcg Tablet) 88 mcg PO DAILY@0600 [facility] Last Admin: 04/17/24 05:55 Dose: 88 mcg Loperamide HCl (Loperamide Hcl 2 Mg Capsule) 4 mg PO Q6H PRN PRN Reason: Diarrhea Lorazepam (Lorazepam 0.5 Mg Tablet) 0.5 mg PO BID PRN PRN Reason: Anxiety,severe Last Admin: 04/16/24 23:51 Dose: 0.5 mg Magnesium Hydroxide (Milk Of Magnesia 30 Ml Oral.Susp) 30 ml PO DAILY PRN PRN Reason: Constipation Last Admin: 04/04/24 16:21 Dose: 30 ml Meclizine HCl (Meclizine Hcl 12.5 Mg Tablet) 12.5 mg PO TID PRN PRN Reason: Dizziness Last Admin: 03/16/24 22:15 Dose: 12.5 mg Methylphenidate HCl (Methylphenidate Hcl 10 Mg Tablet) 20 mg PO TID@0700,1100,1500 [facility] Last Admin: 04/17/24 06:56 Dose: 20 mg Naproxen (Naproxen 500 Mg Tablet) 500 mg PO BID [facility] Last Admin: 04/17/24 08:06 Dose: 500 mg Nicotine Polacrilex (Nicotine Polacrilex 2 Mg Gum) 4 mg BUCCAL Q2H PRN PRN Reason: Nicotine Cravings Olanzapine (Olanzapine 5 Mg Tablet) 5 mg PO TID PRN PRN Reason: agitation Last Admin: 04/16/24 16:42 Dose: 5 mg Olanzapine (Olanzapine 5 Mg Tablet) 5 mg PO BID [facility] Last Admin: 04/17/24 08:08 Dose: 5 mg Polyethylene Glycol (Polyethylene Glycol 3350 17 Gm Powd.Pack) 17 gm PO DAILY [facility] Last Admin: 04/05/24 09:08 Dose: Not Given Saliva Substitute (Dry Mouth [place] 60 Ml [place]) 1 spray MUCOUS MEM Q2H PRN PRN Reason: dry throat Senna/Docusate Sodium (Sennosides/Docusate Sodium Tablet) 1 tab PO BID [facility] Last Admin: 04/05/24 09:09 Dose: Not Given Trazodone HCl (Trazodone Hcl 50 Mg Tablet) 50 mg PO BEDTIME MRX1 PRN PRN Reason: Insomnia Last Admin: 04/15/24 23:19 Dose: 50 mg Vitamin D (Cholecalciferol (Vitamin D3) 25 Mcg Tablet) 25 mcg PO DAILY [facility] Last Admin: 04/17/24 08:08 Dose: 25 mcg Allergies Allergies Allergy/AdvReac Type Severity Reaction Status Date / Time codeine Allergy Swelling Verified 03/10/24 14:55 Assessment & Plan Assessment & Plan (1) Recurrent major depression-severe: Qualifiers: Psychotic features: without psychotic features Qualified Code(s): F33.2 - Major depressive disorder, recurrent severe without psychotic features Status: Acute Code(s): F33.2 - Major depressive disorder, recurrent severe without psychotic features (2) PTSD (post-traumatic stress disorder): Status: Acute Code(s): F43.10 - Post-traumatic stress disorder, unspecified Plan PTSD, Recurrent Major Depression, OCD, Anorexia Nervosa,Binge Purge Type, Borderline Personality Disorder, Polysubstance use disorder-alcohol, cannabis, opiates, TBI. Hospital course: 03/05: continue current tx plan. 03/16/24-0ngoing depression with si - and complicating hx tbi and poor reactivity to medications- requires ongoing inpatient level of care 03/17/24 for now will continue current medications. added miralax and senakot for constipation. Consider ECT for severe refractory depression and suicidality. 03/18 continues to report constipation, no vomiting nor abdominal pain. Had head CT- microvascular changes and atrophy. no acute findings. more hopeless and tearful today but willing to get better and continue tx. consider ECT. 03/20/2024: No changes to current plan. 03/21 continue tx. may benefit from med changes, or even ECT, 03/24/24: Olanzapine 2.5 mg bid to address sx of anxiety, augment SSRI's 03/25/24: Continue tx 03/26 Patient initially reports that she is not doing any better however after more discussion and consideration of her behaviors, she agrees that she is feeling a little less depressed and a little less anxious and that she can tell because she is attending to her ADLs, showering, dressing herself well. She also says that she is actually starting to have hope that she will be able to get better. However she reports that her mood continues to fluctuate throughout the day and that SI thoughts come and go. She is afraid of discharge and getting suicidal when she leaves. -Discussed more of her history, symptoms,, trauma, bulimia, childhood experiences, medication trials. Patient says she has been on Prozac for over 30 years but has never really felt much benefit from it, even when it was at 80 mg. 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 She has been on 50 mg b.i.d. for few months. Edm Operator discussed the risk of serotonin syndrome and what to look out for but also discussed increasing this medication to which patient agreed. -increasing Luvox 100 mg q.h.s. -leave Prozac at 40 mg; will watch for serotonin syndrome; however if Luvox continues to be effective, may consider tapering and discontinuing Prozac since she says it has never been helpful 03/27 no change in presentation; tolerated increased Luvox; continue current regimen 03/28 continue discussion with pt/brother about guns in mother's home and visitation. 04/01 continue tx, increase luvox, pt is asked to give some consideration over the weekend to coping skills she has learned and can use in community when discharged. 04/03/2024: Continue current regimen and plans. Decrease Prozac to 20 mg 04/04/24: Increase Olanzapine to 5 mg bid. 04/05 continue tx. 04/06 continue tx 04/08 Continue regime/plan 04/10 Continue tx 04/12 Decrease Prozac to 10 mg daily Labs 04/13 Discharge 04/18 to cousins home Scheduled call with brother 04/14 10:30am 04/14-continue plan 04/17: No changes Plan: CV, 15 minute checks -Continue Luvox 50 mg daily -INCREASE Luvox to 100mg qhs (patient said this medication has consistently been effective) -Continue Prozac 40 mg for now; patient says this medication has not been effective over the years; will consider tapering if Luvox proves effective enough -Continue current Lamictal dose for now Medical care/consult as needed. Pt has several issues not addressed --Neuro consult-recent falls, balance issues reported --Xrays R Ankle, Hip-reports significant pain Collateral contacts Continue current regime at this time-pt reports several trials-will talk with OP team prior to making changes. Aftercare/Discharge planning Reason for continued inpatient stay Substantial Risk for: rapid decompensation Time Spent With Patient Time: Total time managing care of this patient today ____ minutes.
[2024-04-17] MEDS: LORazepam 0.5 MG TABLET PO ×2 (16:19→18:37)
[2024-04-17] MEDS: Throat Lozenge, Medicated LOZENGE 1 LOZENGE MUCOUS MEM ×2 (16:20→23:21)
[2024-04-17 20:00] VITALS: BP 136/78; PULSE 96; RESP 18; TEMP 37.7; O2SAT 98
[2024-04-17] MEDS: traZODone HCL 50 MG TABLET PO ×2 (21:12→23:21)
--- NOTE | 2024-04-18 04:51 | PM.PSYDC ---
DS: Providers Provider Date of Service: 04/18/24 Date of admission: 03/11/24 15:42 Date of discharge: 04/18/24 Primary care physician: Unknown Physician Admitting clinician: Chelita Davila Attending physician on admission: Lazaro Kaur Consults: 03/12/24 21:45 Consult to Neurology Routine Consulting Provider: [facility] Reason for consultation: falls, reports feeling off balance, TBI 2019 Attending physician on discharge: Lazaro Kaur Discharging clinician: Chelita Davila DS: Diagnosis Discharge Diagnosis (1) Recurrent major depression-severe: Status: Acute (2) PTSD (post-traumatic stress disorder): Status: Acute DS: Medications Discharge Medications Home Medications: Previous Rx's ?Medication ?Instructions ?Recorded calcium carbonate (Antacid Ext Str 2.5 tab PO TID PRN Indigestion #0 04/18/24 (calcium carb)) tabs calcium carbonate (Oyster Shell 500 mg PO DAILY #30 tabs 04/18/24 Calcium 500) cholecalciferol (vitamin D3) 25 25 mcg PO DAILY #30 tabs 04/18/24 mcg (1,000 unit) tablet fluoxetine 10 mg capsule 10 mg PO DAILY #30 caps 04/18/24 fluvoxamine 100 mg tablet 100 mg PO BID #60 tabs 04/18/24 lamotrigine 100 mg tablet 100 mg PO DAILY #30 tabs 04/18/24 levothyroxine 88 mcg tablet 88 mcg PO DAILY@0600 #30 tabs 04/18/24 meclizine 12.5 mg tablet 12.5 mg PO TID PRN Dizziness #30 04/18/24 tabs methylphenidate HCl 10 mg tablet 20 mg (2 x 10 mg) PO 04/18/24 TID@0700,1100,1500 #90 tabs naproxen 500 mg tablet 500 mg PO BID #60 tabs 04/18/24 olanzapine 5 mg tablet 5 mg PO BID #90 tabs 04/18/24 olanzapine 5 mg tablet 5 mg PO TID PRN agitation #0 tabs 04/18/24 trazodone 50 mg tablet 50 mg PO BEDTIME MRX1 PRN Insomnia 04/18/24 #60 tabs Mental Status Exam Mental Status Exam Patient Appearance: Appropriate Patient Orientation: Person, Place, Time and Situation Level of Consciousness: Alert Patient Behavior: Talkative, Cooperative and Good Eye Contact Mood Description: Depressed and Anxious Affect Description: Anxious and Flat Patient Cognition Impaired: No Ability to Follow Directions: Good Speech Pattern: Spontaneous Speech Memory Description: Intact Hallucinations: None Perceptual Disturbances: Depersonalization and Derealization Thought Process: Distracted and Rumination Thought Content: positive for Perseveration and positive for Suicidal Ideation (denies) Judgement: Good Data Data Completed and Pending Completed studies during hospitalization [Text1]: 04/13/24 08:00 WBC 12.7 H RBC 3.84 L Hgb 13.0 Hct 38.7 MCV 100.8 H MCH 33.9 H MCHC 33.6 RDW 14.1 Plt Count 237 MPV 9.9 Immature Gran % (Auto) 0.3 Neut % (Auto) 53.3 Lymph % (Auto) 17.6 L [place] % (Auto) 11.1 H Eos % (Auto) 16.9 H Baso % (Auto) 0.8 Lymph # (Auto) 2.2 [place] # (Auto) 1.4 H Eos # (Auto) 2.2 H Baso # (Auto) 0.1 Abs Immat Gran (auto) 0.04 H Absolute Neuts (auto) 6.8 Absolute Nucleated RBC 0.000 Nucleated RBC % (auto) 0.0 Smear Tech's Comments VERIFIED Sodium 140 Potassium 4.7 D Chloride 110 H Carbon Dioxide 23 Anion Gap 12 BUN 45 H Creatinine 1.19 Estim Creat Clear Calc 42.9 Estimated GFR 46 Random Glucose 137 H Estimat Average Glucose 103 Hemoglobin A1c % 5.2 Calcium 10.3 H D Total Bilirubin 0.3 AST 39 H ALT 41 H Alkaline Phosphatase 183 H Total Protein 7.3 Albumin 3.7 Triglycerides 85 Cholesterol 205 H LDL Cholesterol, Calc 79 HDL Cholesterol 109 Vitamin B12 590 Folate 16.3 TSH 2.09 Imaging Diagnostic Imaging Impressions [facility] X-Ray 03/18/24 15:00 IMPRESSION: Moderate constipation. Electronically signed by: Jass Caldwell MD 03/18/2024 04:38 PM EST RP [facility] X-Ray 03/23/24 09:46 IMPRESSION: Mild constipation. Electronically signed by: Jass Caldwell MD 03/24/2024 01:25 PM EST RP DS: Summary Hospital Course Hospital Course: Admission to adult psychaitry for exacerbation of recurrent major depression, obsessive compulsive disorder, PTSD, Borderline Personality Disorder. History of ADHD, anorexia, polysubstance use disorder, TBI and seizure disorder. Medications were evaluated and adjusted. Pt was encouraged and did utilize the milieu during her admission to work on issues. She was able to have a few helpful discussions with her brother regarding their mother and moving forward with visiting parameters and boundaries. Pt reported much comfort from being on the unit and was hoping to have a very long admission. She will return to her cousin Terra's home and will return to her home with her room-mate in a few weeks. Family has removed guns from mother's home. Room-mate has guns, however pt has no access to these due to room-mates advanced security systems. Status at Discharge Functional status at discharge: independent ambulation Overall status at discharge: patient is progressing back to baseline Time Spent with Patient Time attestation: Total time managing care of this patient today ____ minutes. Discharge Plan Discharge Anticipated Discharge Date/Time: 04/18/24 12:00 Patient Disposition: Xfer Other Discharge Diagnosis: PTSD Recurrent Major Depression Obsessive Compulsive Disorder ADHD Borderline Personality Disorder History of Anorexia History of Polysubstance Use Disorder History of Seizure Disorder History of TBI Referrals: [facility]-Therapy [Other] - 04/19/24 2:00 pm (Appointment is in office with Zehra Weaver ) [facility]-Medication Management [Other] - 04/20/24 2:40 pm (Appointment is telehealth with Ladan Martin ) Estelle Wise, PCP [Other] - 04/27/24 1:00 pm (In office appointment ) Discharge Medications: New trazodone 50 mg Tablet 50 mg PO BEDTIME MRX1 PRN (Reason: Insomnia) Qty: 60 0RF methylphenidate HCl 10 mg Tablet 20 mg PO TID@0700,1100,1500 Qty: 90 0RF Rx Instructions: Partial Fill upon patient request. olanzapine 5 mg Tablet 5 mg PO TID PRN (Reason: agitation) Qty: 0 0RF olanzapine 5 mg Tablet 5 mg PO BID Qty: 90 0RF calcium carbonate [Oyster Shell Calcium 500] 500 mg calcium (1,250 mg) Tablet 500 mg PO DAILY Qty: 30 0RF fluoxetine 10 mg Capsule 10 mg PO DAILY Qty: 30 0RF lamotrigine 100 mg Tablet 100 mg PO DAILY Qty: 30 0RF naproxen 500 mg Tablet 500 mg PO BID Qty: 60 0RF meclizine 12.5 mg Tablet 12.5 mg PO TID PRN (Reason: Dizziness) Qty: 30 0RF Antacid Ext Str (calcium carb) 300 mg (750 mg) Tablet,Chewable 2.5 tab PO TID PRN (Reason: Indigestion) Qty: 0 0RF levothyroxine 88 mcg Tablet 88 mcg PO DAILY@0600 Qty: 30 0RF cholecalciferol (vitamin D3) 25 mcg (1,000 unit) Tablet 25 mcg PO DAILY Qty: 30 0RF fluvoxamine 100 mg tablet 100 mg PO BID Qty: 60 0RF Discontinued methylphenidate HCl 20 mg tablet 20 mg PO TID@0700,1100,1500 meloxicam 15 mg tablet 15 mg PO DAILY meclizine 12.5 mg Tablet 12.5 mg PO TID PRN (Reason: Dizziness) levothyroxine [Synthroid] 88 mcg tablet 88 mcg PO DAILY lorazepam 0.5 mg tablet 0.5 mg PO DAILY PRN (Reason: anxiety) calcium carbonate [Calcium 500] 500 mg calcium (1,250 mg) Tablet 500 mg PO DAILY fluvoxamine 100 mg tablet 50 mg PO BID calcium carbonate [Tums] 200 mg calcium (500 mg) Tablet,Chewable 200 mg PO TID PRN (Reason: Indigestion) fluoxetine 20 mg capsule 40 mg PO DAILY lamotrigine 100 mg tablet 100 mg PO DAILY cholecalciferol (vitamin D3) [Vitamin D3] 25 mcg (1,000 unit) Tablet 25 mcg PO DAILY Discharge Orders: Discharge Order (Routine); Ordered 04/18/24 Ordered By: Chelita Davila Diet: Advance to usual diet Activity on Discharge: As tolerated Stand Alone Forms: Patient Portal Discharge page, Community Support Print Language: [place]al[place] Care Plan Goals: Mood and Behavioral Stabilization Health Concerns: Mood and Behavioral Stabilization Plan of Treatment: Attend scheduled appointments Take medications as directed Assessment: Pt will stay with her cousin Terra upon discharge Denies SI/HI/AH/VH. No sx of soila, psychosis Pt has had communication with her brother and they have a plan worked out for supported contact with their mother Discharge Date/Time: 04/18/24 11:20
[2024-04-18] MEDS: Levothyroxine Sodium 88 MCG TABLET PO (06:37)
[2024-04-18] MEDS: Methylphenidate HCl 10 MG TABLET 20 MG PO ×2 (06:37→10:55)
[2024-04-18] MEDS: LORazepam 0.5 MG TABLET PO (07:03)
[2024-04-18 08:00] VITALS: BP 114/62; PULSE 91; RESP 18; TEMP 37.2; O2SAT 97
[2024-04-18] MEDS: OLANZapine 5 MG TABLET PO ×2 (08:29→10:55)
[2024-04-18] MEDS: NaPROXEN 500 MG TABLET PO (08:29)
[2024-04-18] MEDS: Calcium Oyster Shell Elemental 500 MG TABLET PO (08:29)
[2024-04-18] MEDS: fluvoxaMINE Maleate 50 MG TABLET 100 MG PO (08:29)
[2024-04-18] MEDS: lamoTRIgine 100 MG TABLET PO (08:29)
[2024-04-18] MEDS: FLUoxetine HCl 10 MG CAPSULE PO (08:29)
[2024-04-18] MEDS: Cholecalciferol (Vitamin D3) 25 MCG TABLET PO (08:29)
[2024-04-18] MEDS: Throat Lozenge, Medicated LOZENGE 1 LOZENGE MUCOUS MEM (10:54)
== END 2024-04-18 11:20 | disposition other institution (70) | DRG 885 ==
LOC: HO.ED 16:12 → HO.PM5 03-11 15:54
PROVIDERS: Physician Assistant; Admitting Provider Psychiatry & Neurology Psychiatry; Emergency Provider Emergency Medicine; Visit Provider Clinical Nurse Specialist Psychiatric/Mental Health, Adult
DX: F33.2 Major depressive disorder, recurrent severe without psychotic features (principal); R45.851 Suicidal ideations; F50.029 Anorexia nervosa, binge eating/purging type, unspecified; F60.3 Borderline personality disorder; F11.10 Opioid abuse, uncomplicated; F10.10 Alcohol abuse, uncomplicated; F12.10 Cannabis abuse, uncomplicated; F43.10 Post-traumatic stress disorder, unspecified; G40.909 Epilepsy, unspecified, not intractable, without status epilepticus; F42.9 Obsessive-compulsive disorder, unspecified; Z87.820 Personal history of traumatic brain injury; Z79.899 Other long term (current) drug therapy
CPT/HCPCS: 36415; 70450; 73502; 73600; 74018; 80053; 80061; 80143; 80179; 80307; 81001; 81003; 82607; 82746; 83036; 84443; 85025; 93005; 95816; 99285; S9485

== ENCOUNTER → 2024-03-11 11:02 | Outpatient (BNV) | payer MEDICARE, MEDICAID, SELFPAY | PROVIDERS: Admitting Provider Psychiatry & Neurology Psychiatry; Emergency Provider Emergency Medicine; Visit Provider Internal Medicine Cardiovascular Disease | DX: I45.81 Long QT syndrome (principal) | CPT/HCPCS: 93010 ==

== ENCOUNTER 2024-03-11 15:42 | Outpatient (BNV) | payer MEDICARE, MEDICAID, SELFPAY | END 2024-03-13 09:00 | PROVIDERS: Admitting Provider Psychiatry & Neurology Psychiatry; Emergency Provider Emergency Medicine; Visit Provider Radiology Diagnostic Radiology | DX: M25.551 Pain in right hip (principal); M25.571 Pain in right ankle and joints of right foot | CPT/HCPCS: 73502; 73600 ==

== ENCOUNTER 2024-03-11 15:42 | Outpatient (BNV) | payer OTHER, MEDICAID, SELFPAY | END 2024-03-17 15:48 | PROVIDERS: Admitting Provider Psychiatry & Neurology Psychiatry; Emergency Provider Emergency Medicine; Visit Provider Radiology Diagnostic Radiology | DX: R55 Syncope and collapse (principal) | CPT/HCPCS: 70450 ==

== ENCOUNTER 2024-03-11 15:42 | Outpatient (BNV) | payer OTHER, MEDICAID, SELFPAY | END 2024-03-18 15:00 | PROVIDERS: Admitting Provider Psychiatry & Neurology Psychiatry; Emergency Provider Emergency Medicine; Visit Provider Radiology Diagnostic Radiology | DX: K59.00 Constipation, unspecified (principal) | CPT/HCPCS: 74018 ==

== ENCOUNTER 2024-03-11 15:42 | Outpatient (BNV) | payer MEDICARE, MEDICAID, SELFPAY | END 2024-03-23 09:46 | PROVIDERS: Admitting Provider Psychiatry & Neurology Psychiatry; Emergency Provider Emergency Medicine; Visit Provider Radiology Diagnostic Radiology | DX: K59.00 Constipation, unspecified (principal) | CPT/HCPCS: 74018 ==

== ENCOUNTER → 2024-03-11 15:42 | Outpatient (BNV) | payer MEDICARE, MEDICAID, SELFPAY | PROVIDERS: Admitting Provider Psychiatry & Neurology Psychiatry; Emergency Provider Emergency Medicine; Visit Provider Clinical Nurse Specialist Psychiatric/Mental Health, Adult | DX: F43.10 Post-traumatic stress disorder, unspecified (principal); F42.9 Obsessive-compulsive disorder, unspecified; F33.2 Major depressive disorder, recurrent severe without psychotic features; F50.029 Anorexia nervosa, binge eating/purging type, unspecified; F19.90 Other psychoactive substance use, unspecified, uncomplicated; F60.3 Borderline personality disorder; S06.9XAA Unspecified intracranial injury with loss of consciousness status unknown, initial encounter | CPT/HCPCS: 90792 ==

== ENCOUNTER → 2024-03-11 15:42 | Outpatient (BNV) | payer OTHER, MEDICAID, SELFPAY | PROVIDERS: Admitting Provider Psychiatry & Neurology Psychiatry; Emergency Provider Emergency Medicine; Visit Provider Psychiatry & Neurology Neurology | DX: G40.909 Epilepsy, unspecified, not intractable, without status epilepticus (principal) | CPT/HCPCS: 99222 ==